=== PATIENT | male | born 1950 | race African-American/Black ===

== ENCOUNTER 2016-09-28 08:56 | Emergency (ER) | payer MEDICARE, MEDICAID ==
[2016-09-28] MEDS ORDERED: DOXYCYCLINE 100 MG TABLET PO STA (09:26)
[2016-09-28] MEDS ORDERED: BUFFERED LIDOCAINE 10 ML SYRINGE SUBQ STA (09:26)
[2016-09-28] MEDS ORDERED: DOXYCYCLINE 100 MG TABLET PO ONE (09:33)
[2016-09-28] MEDS ORDERED: BUFFERED LIDOCAINE 10 ML SYRINGE ONE (09:34)
--- NOTE | 2016-09-28 10:17 | XRAY Preliminary Report ---
Exam: XR Foot 3 View RT IMPRESSION: 1. Radiopaque foreign body measuring 10 mm projected over the base of the right third proximal phalan x on the frontal view and may be within the plantar soft tissues although is not well-seen on the lat eral view. [facility] SITE ID: [id number]
--- NOTE | 2016-09-28 10:20 | XRAY Report ---
EXAM: RIGHT FOOT RADIOGRAPHY EXAM DATE: 09/28/2016 09:59 AM. CLINICAL HISTORY: SORE ON PLANTAR AREA/RO FB. COMPARISON: 10/22/2014. 12/29/2013. TECHNIQUE: 3 views. FINDINGS: Bones: No acute fracture or bony lesions. No bony erosions. Absent right second digit. Joints: Mild right first MTP and marked first and second tarsometatarsal joint degenerative changes. No dislocation. Soft Tissues: 10 mm radiopaque foreign body is seen on the frontal and oblique view overlapping porti ons of the base of the right third proximal phalanx and on the oblique view along the base of the rig ht fourth proximal phalanx. The foreign body may be within the plantar soft tissues although is not w ell-seen on the lateral view. Soft tissue swelling. No subcutaneous air/gas. IMPRESSION: 1. Radiopaque foreign body measuring 10 mm projected over the base of the right third proximal phalan x on the frontal view and may be within the plantar soft tissues although is not well-seen on the lat eral view. [facility] Referring Provider Line: [phone] SITE ID: [id number]
--- NOTE | 2016-09-28 10:45 | ED Physician Documentation ---
History of Present Illness - Stated complaint Stated Complaint: R FOOT LAC NOT HEALING-SWOLLEN - Chief complaint Chief Complaint: Ext Problem - History obtained from History obtained from: Patient - History of Present Illness Timing: How many weeks ago (1 week) - Additonal information Additional information: Patient is a 66-year-old male who presents with a complaint of right-sided foot pain. This pain is been present for about a week. He sustained a laceration but not a crush or twist injury to the foot a week ago. Since that time to the present he has had a small laceration of bottom of his foot that his remained swollen and tender. Denies any purulent discharge redness, warmth or fever. His tetanus prophylaxis is up-to-date. He denies any serious medical problems like hypertension or diabetes. He denies any systemic complaints such as fever , chills, chest pain, shortness of breath, nausea, vomiting, constipation diarrhea or lower urinary symptoms. Review of systems: For pertinent positive and negatives in the review of systems please see the history of present illness, otherwise all other systems have been reviewed and are negative. Dragon disclaimer: Parts of this medical record were created using voice recognition technology. Because of the inherent limitations of this system, occasional same sounding word substitutions do occur and persist despite proofreading. Please read the document for context. Review of Systems Musculoskeletal: reports: Extremity pain, Joint pain, Extremity swelling, Joint swelling, Pain with weight bearing PD PAST MEDICAL HISTORY - Past Medical History Cardiovascular: Hypertension Respiratory: None Neuro: TIA, Peripheral neuropathy, Other Endocrine/Autoimmune: None GI: GERD : None HEENT: None Psych: Depression, Anxiety Musculoskeletal: Osteoarthritis Derm: None - Past Surgical History Past Surgical History: Yes General: Colonoscopy Ortho: Other HEENT: Tonsil/Adenoidectomy - Present Medications Home Medications: Ambulatory Orders Medication Instructions Recorded Confirmed Amitriptyline [Elavil] 10 mg PO HS 10/22/14 09/28/16 Doxycycline Hyclate [Vibramycin] 100 mg PO BID #14 capsule 09/28/16 Tramadol HCl 50 mg PO Q8HR PRN #14 tablet 09/28/16 - Allergies Allergies/Adverse Reactions: Allergies Allergy/AdvReac Type Severity Reaction Status Date / Time No Known Drug Allergies Allergy Verified 10/22/14 13:55 - Social History Does the pt smoke?: No Smoking Status: Former smoker Does the pt drink ETOH?: Yes Does the pt have substance abuse?: No - Immunizations Immunizations are current?: Yes Immunizations: TDAP >10years/unknown - POLST Patient has POLST: No PD ED PE NORMAL - General General: Alert and oriented X 3, No acute distress, Well developed/nourished, Other (Well-appearing thin tall male in no apparent distress) - HEENT HEENT: Atraumatic - Neck Neck: Supple, no meningeal sign - Cardiac Cardiac: RRR - Respiratory Respiratory: No respiratory distress, Clear bilaterally - Abdomen Abdomen: Normal bowel sounds - Extremities Extremities: Other (On examination he has an old deformity to the affected left foot from a fracture when he was a young man. On examination of the plantar aspect he has a L-shaped laceration approximately 1/2 cm in length. The tissue is somewhat wet and macerated. There is mild inflammation but no obvious erythema induration or purulent discharge. There is slight discoloration of the plantar pad around the laceration however the toes show normal color without any evidence of venous or arterial insufficiency) Results - Vitals Vitals: Vital Signs - 24 hr 09/28/16 09/28/16 09:01 13:00 Temperature 36.5 C 36.6 C Heart Rate 92 68 Respiratory 16 14 Rate Blood Pressure 141/81 H 143/93 H O2 Saturation 98 100 Oxygen O2 Source Room air - Labs Labs: Laboratory Tests 09/28/16 13:17 POC Whole Bld Glucose 86 PD MEDICAL DECISION MAKING - ED course Complexity details: reviewed old records, re-evaluated patient ED course: Patient is a 66-year-old man who presents with a poorly healing wound on the plantar aspect of his right foot. There is no clear-cut infection on clinical exam so plain films were obtained to show possible radiopaque foreign body. The wound was cleansed, probed and anesthetized by me is unable to delineate the location of this foreign body so a CT scan of the patient's foot was obtained. The CT scan clearly shows a large radiopaque foreign body and with this information I extended the healing laceration distally and laterally. After this was done a work through the tissue planes is able to find a large triangular glass foreign body. This glass foreign body was removed intact and the wound was carefully again probed and irrigated with 250 cc of saline under pressure did dislodge any small additional glass foreign bodies. At this point in time I am pretty clear that there are no residual foreign bodies and the CT scan only showed one large one which was easily removed. At this point in time the patient will keep the foot clean, soak it daily, will be prescribed antibiotics consisting of doxycycline and a small amount of pain medication. Disposition: To home Clinical impression: 1. Retained foreign body plantar aspect right foot status post removal-foreign body is glass Departure - Departure Disposition: ED Transfer to [facility] Clinical Impression: Foreign body (FB) in soft tissue Instructions: ED Foreign Body Soft Tissue Removed Prescriptions: Tramadol HCl 50 mg PO Q8HR PRN #14 tablet PRN Reason: Pain Doxycycline Hyclate [Vibramycin] 100 mg PO BID #14 capsule
[2016-09-28] MEDS ORDERED: HYDROcod/ACETAM 5/325 MG TABLET PO STA (14:13)
[2016-09-28] MEDS ORDERED: HYDROcod/ACETAM 5/325 MG TABLET ONE (14:21)
[2016-09-28] MEDS ORDERED: LIDOCAINE 2% 10 ML MDV ONE (14:42)
--- NOTE | 2016-09-28 14:43 | CT Preliminary Report ---
Exam: CT Lower Extremity Right W/O IMPRESSION: 1. Focal foreign body is radiodense located in the plantar aspect foot in the region of the third and fourth MTP joints measuring 6.5 x 5.6 mm transversely extending for a cephalocaudal distance of 9.3 mm, located 3.5 mm from skin surface on series 10 image 52 and 4.9 mm in skin surface on series 11 im age 42. 2. Second toe has been removed, third, fourth, fifth hammertoe deformity. No acute fractures. 3. Extensive degenerative change/neuropathic foot seen in the Lisfranc joint. Most likely there has b een an injury to the Lisfranc ligament, an evulsion injury is seen at the distal lateral first cuneif orm. [facility] SITE ID: [id number]
--- NOTE | 2016-09-28 14:59 | CT Report ---
EXAM: RIGHT FOOT CT WITHOUT CONTRAST EXAM DATE: 09/28/2016 02:03 PM. CLINICAL HISTORY: Still concerned for retained foreign body and osteo. COMPARISON: Plain x-ray done earlier today. TECHNIQUE: Thin-section axial images were acquired of the foot without contrast. Post-processing: Cor onal and sagittal reformats. Other: None. In accordance with CT protocol optimization, one or more of the following dose reduction techniques w ere utilized for this exam: automated exposure control, adjustment of mA and/or KV based on patient s ize, or use of iterative reconstructive technique. FINDINGS: Bones: Second toe has been removed. Third, fourth and fifth hammertoe deformity. No acute fractures. Joints: Extensive arthritic/neuropathic changes at the Lisfranc joint. Some fragmentation lateral dis emiliano first cuneiform at the expected location of the Lisfranc ligament. Hindfoot valgus. Loose body seen dorsal to the second TMT joint on series 11 image 84. Numerous loose bodies seen in the lateral mortise. Please see series 10 image 229. There is anterior widening of the mortise on series 11 image 74. Musculature: Moderately extensive fatty atrophy of the muscles of the midfoot. Other: There is an abnormal radiodense structure in the plantar aspect of the foot near the third and fourth MCP joints, associated with a small amount of soft tissue gas and soft tissue defect. Please see series 10 image 52, series 11 image 54, series 9 image 36. IMPRESSION: 1. Focal foreign body is radiodense and located in the plantar aspect of the foot in the region of th e third and fourth MTP joints measuring 6.5 x 5.6 mm transversely, extending for a cephalocaudal dist ance of 9.3 mm, located 3.5 mm from the skin surface on series 10 image 52 and 4.9 mm from the skin s urface on series 11 image 44. 2. Second toe has been removed. Third, fourth, and fifth hammertoe deformity. No acute fractures. 3. Extensive degenerative change/neuropathic foot seen in the Lisfranc joint. Most likely there has b een an injury to the Lisfranc ligament, an avulsion injury is seen at the distal lateral first cuneif orm. [facility] Referring Provider Line: [phone] SITE ID: [id number]
[2016-09-28 15:07] VITALS: BP 130/88
== END 2016-09-28 15:07 | disposition home or self-care (01) ==
LOC: ED 08:56
DX: M79.5 Residual foreign body in soft tissue (principal); Z87.891 Personal history of nicotine dependence; I10 Essential (primary) hypertension; K21.9 Gastro-esophageal reflux disease without esophagitis
CPT/HCPCS: 10120; 73630; 73700; 99283; A9270

== ENCOUNTER 2016-11-15 17:37 | Emergency (ER) | payer MEDICARE, MEDICAID ==
[2016-11-15 17:51] VITALS: BP 137/75
--- NOTE | 2016-11-15 18:53 | ED Physician Documentation ---
History of Present Illness - Stated complaint Stated Complaint: WOUND RT FOOT - Chief complaint Chief Complaint: Ext Problem - History obtained from History obtained from: Patient - History of Present Illness Timing: How many weeks ago (6) Pain level max: 0 Pain level now: 0 Improved by: nothing Worsened by: nothing - Additonal information Additional information: Patient is a 66-year-old diabetic male with severe neuropathy in his feet, who has a nonhealing wound to the plantar aspect of the right foot. A piece of glass was removed approximately a month and a half ago and states the wound has not healed. Has not followed up with his doctor. Denies any fevers. Denies any drainage. Review of Systems Constitutional: denies: Fever, Chills GI: denies: Vomiting Skin: denies: Rash Musculoskeletal: denies: Neck pain, Back pain Neurologic: denies: Headache PD PAST MEDICAL HISTORY - Past Medical History Past Medical History: Yes Cardiovascular: Hypertension Respiratory: None Neuro: TIA, Peripheral neuropathy, Other Endocrine/Autoimmune: None GI: GERD : None HEENT: None Psych: Depression, Anxiety Musculoskeletal: Osteoarthritis Derm: None - Past Surgical History Past Surgical History: Yes General: Colonoscopy Ortho: Other HEENT: Tonsil/Adenoidectomy - Present Medications Home Medications: Ambulatory Orders Medication Instructions Recorded Confirmed Amitriptyline [Elavil] 10 mg PO HS 10/22/14 09/28/16 Doxycycline Hyclate [Vibramycin] 100 mg PO BID #14 capsule 09/28/16 Tramadol HCl 50 mg PO Q8HR PRN #14 tablet 09/28/16 Cephalexin [Keflex] 500 mg PO Q6H #28 capsule 11/15/16 Sulfamethox/Trimeth 800/160 1 each PO BID #14 tablet 11/15/16 [Bactrim Ds 800/160] - Allergies Allergies/Adverse Reactions: Allergies Allergy/AdvReac Type Severity Reaction Status Date / Time No Known Drug Allergies Allergy Verified 11/15/16 17:50 - Social History Does the pt smoke?: No Smoking Status: Former smoker Does the pt drink ETOH?: Yes Does the pt have substance abuse?: No - Immunizations Immunizations are current?: Yes Immunizations: TDAP >10years/unknown - POLST Patient has POLST: No PD ED PE NORMAL - Vitals Vital signs reviewed: Yes - General General: Alert and oriented X 3, No acute distress - Derm Derm: Warm and dry - Extremities Extremities: Other (R foot - puncture wound present with mild swelling and erythema surrounding. No drainage. ) - Neuro Neuro: Alert and oriented X 3 - Psych Psych: Normal mood, Normal affect Results - Vitals Vitals: Oxygen O2 Source Room air - Labs Labs: Microbiology 11/15/16 19:00 Wound Culture - Preliminary Foot - Right Strep Agalactiae - (Group B) Laboratory Tests 11/15/16 11/15/16 11/15/16 18:50 18:50 18:50 WBC 7.5 RBC 4.43 L Hgb 12.1 L Hct 37.6 L MCV 84.9 MCH 27.3 MCHC 32.2 RDW 14.4 Plt Count 289 MPV 6.9 L Neut # 4.9 Lymph # 1.9 Stewart # 0.5 Eos # 0.1 Baso # 0.1 Absolute Nucleated RBC 0.00 Nucleated RBCs 0.0 ESR 45 H C-Reactive Protein 1.3 H - Rads (name of study) R foot xray Radiology: Prelim report reviewed, EMP read contemporaneously, See rad report ( No acute bony abnormalities identified. ) PD MEDICAL DECISION MAKING - ED course Complexity details: reviewed results, re-evaluated patient, considered differential, d/w patient ED course: Patient is a 66-year-old male who presents to the emergency department with a nonhealing wound to the plantar aspect of the right foot. Wound culture obtained. Inflammatory markers are mildly elevated. Will cover with antibiotics pending culture results. Recommend he be referred to wound care by his PCP at the [facility]. He has had wound care there before. No evidence of osteomyelitis. Patient counseled regarding signs and symptoms for which I believe and urgent re-evaluation would be necessary. Patient with good understanding of and agreement to plan and is comfortable going home at this time This document was made in part using voice recognition software. While efforts are made to proofread this document, sound alike and grammatical errors may occur. Departure - Departure Disposition: 01 Home, Self Care Clinical Impression: Non-healing wound Diabetic foot ulcer Qualifiers: Diabetic foot ulcer location: midfoot Diabetes mellitus type: other specified ( including PEPPER) Laterality: right Non-pressure ulcer stage: limited to breakdown of skin Qualified Code(s): E13.621 - Other specified diabetes mellitus with foot ulcer Condition: Good Instructions: ED Wound Care Follow-Up: Latanya Skinner ARNP [Primary Care Provider] - Within 3 Days (for referral to wound care.) Prescriptions: Sulfamethox/Trimeth 800/160 [Bactrim Ds 800/160] 1 each PO BID #14 tablet Cephalexin [Keflex] 500 mg PO Q6H #28 capsule Comments: Return if you worsen. You need a referral to wound care from your doctor for your foot. take all antibiotics until gone. Discharge Date/Time: 11/15/16 20:18
[2016-11-15 18:57] LABS: BASOPHILS # (AUTO) 0.1 10^3/uL (0.0-0.1); BASOPHILS % (AUTO) 1.2 %; EOSINOPHILS # (AUTO) 0.1 10^3/uL (0.0-0.7); EOSINOPHILS % (AUTO) 1.5 %; HCT - HEMATOCRIT 37.6 % (42.0-52.0); HGB - HEMOGLOBIN 12.1 g/dL (14.0-18.0); LYMPHOCYTES # (AUTO) 1.9 10^3/uL (1.5-3.5); LYMPHOCYTES % (AUTO) 24.7 %; MEAN CORPUSCULAR HEMOGLOBIN 27.3 pg (27.0-31.0); MEAN CORPUSCULAR HGB CONC 32.2 g/dL (32.0-36.0); MEAN CORPUSCULAR VOLUME 84.9 fL (80.0-94.0); MEAN PLATELET VOLUME 6.9 fL (7.4-11.4); MONOCYTES # (AUTO) 0.5 10^3/uL (0.0-1.0); MONOCYTES % (AUTO) 7.1 %; NEUTROPHILS # (AUTO) 4.9 10^3/uL (1.5-6.6); NEUTROPHILS % (AUTO) 65.5 %; RED BLOOD COUNT 4.43 10^6/uL (4.70-6.10); RED CELL DISTRIBUTION WIDTH 14.4 % (12.0-15.0); UNCORRECTED WHITE BLOOD COUNT 7.5 x10^3/uL; WHITE BLOOD COUNT 7.5 x10^3/uL (4.8-10.8)
--- NOTE | 2016-11-15 19:53 | XRAY Preliminary Report ---
Exam: XR Foot 3 View RT IMPRESSION: No acute bony abnormalities identified. [facility] SITE ID: [id number]
--- NOTE | 2016-11-15 19:55 | XRAY Report ---
EXAM: RIGHT FOOT RADIOGRAPHY EXAM DATE: 11/15/2016 07:35 PM. CLINICAL HISTORY: Right foot wound not healing. Diabetic. Plantar aspect. COMPARISON: 09/28/2016. TECHNIQUE: 3 views. FINDINGS: Bones: No acute traumatic or destructive bony abnormalities. Missing second toe. Joints: Stable degenerative changes at multiple TMT joints, especially the first, and the first IP codi int.. No subluxations. Soft Tissues: Soft tissue swelling noted over the plantar MTP joints. IMPRESSION: No acute bony abnormalities identified. [facility] Referring Provider Line: [phone] SITE ID: [id number]
== END 2016-11-15 20:18 | disposition home or self-care (01) ==
LOC: ED 17:37
DX: S91.331D Puncture wound without foreign body, right foot, subsequent encounter (principal); W25.XXXD Contact with sharp glass, subsequent encounter; E11.621 Type 2 diabetes mellitus with foot ulcer; L97.411 Non-pressure chronic ulcer of right heel and midfoot limited to breakdown of skin; E11.42 Type 2 diabetes mellitus with diabetic polyneuropathy; I10 Essential (primary) hypertension; K21.9 Gastro-esophageal reflux disease without esophagitis; M19.90 Unspecified osteoarthritis, unspecified site; Z86.73 Personal history of transient ischemic attack (TIA), and cerebral infarction without residual deficits; Z87.891 Personal history of nicotine dependence
CPT/HCPCS: 36415; 85025; 85651; 86140; 87070; 87205; 99283

== ENCOUNTER 2016-11-19 14:02 | Outpatient (CLI) | payer MEDICARE, MEDICAID ==
[2016-11-19 18:59] LABS: ALBUMIN/GLOBULIN RATIO 1.2 (1.0-2.2); BILIRUBIN,TOTAL 0.7 mg/dL (0.2-1.0); CALCIUM 9.3 mg/dL (8.5-10.3); CREATININE 1.3 mg/dL (0.6-1.2); POTASSIUM 4.5 mmol/L (3.5-5.0); TOTAL PROTEIN 8.1 g/dL (6.7-8.2)
== END 2016-11-19 14:03 | disposition home or self-care (01) ==
LOC: LAB.S 14:02
PROVIDERS: ATTEND Nurse Practitioner Family
DX: B19.20 Unspecified viral hepatitis C without hepatic coma (principal); I10 Essential (primary) hypertension; R79.89 Other specified abnormal findings of blood chemistry
CPT/HCPCS: 36415; 80053; 87522

== ENCOUNTER 2017-12-04 15:50 | Emergency (ER) | payer MEDICARE, MEDICAID ==
[2017-12-04] MEDS ORDERED: SULFAMETH/TRIMETH DS 800/160 MG TABLET PO STA (17:27)
--- NOTE | 2017-12-04 17:30 | ED Physician Documentation ---
History of Present Illness - Stated complaint Stated Complaint: RT FOOT WOUND - Chief complaint Chief Complaint: General - History obtained from History obtained from: Patient - History of Present Illness Timing: Other (67-year-old gentleman with a chronic foot wound on the right foot. Has been infected many times. He feels like it started to get infected again a couple of days ago and he is fatigued without measured fevers.) Review of Systems Constitutional: denies: Fever, Chills Nose: denies: Rhinorrhea / runny nose, Congestion GI: denies: Abdominal Pain, Abdominal Swelling PD PAST MEDICAL HISTORY - Past Medical History Past Medical History: Yes Cardiovascular: Hypertension Respiratory: None Endocrine/Autoimmune: None GI: GERD : None HEENT: None Psych: Depression, Anxiety Musculoskeletal: Osteoarthritis Derm: None - Past Surgical History Past Surgical History: Yes General: Colonoscopy Ortho: Other HEENT: Tonsil/Adenoidectomy - Present Medications Home Medications: Ambulatory Orders Medication Instructions Recorded Confirmed Sulfamethoxazole/Trimethoprim 1 each PO BID #20 tablet 12/04/17 [Sulfamethoxazole-Tmp Ds Tablet] - Allergies Allergies/Adverse Reactions: Allergies Allergy/AdvReac Type Severity Reaction Status Date / Time No Known Drug Allergies Allergy Verified 12/04/17 16:11 - Social History Does the pt smoke?: No Smoking Status: Never smoker Does the pt drink ETOH?: Yes Does the pt have substance abuse?: No - Immunizations Immunizations are current?: Yes Immunizations: TDAP >10years/unknown - POLST Patient has POLST: No PD ED PE NORMAL - Vitals Vital signs reviewed: Yes - General General: Alert and oriented X 3, No acute distress - Extremities Extremities: Other (On the bottom of the right foot there is a chronic small ulcer measuring only about 5 mm around with a little bit of drainage. A culture was done during exam.) - Psych Psych: Normal mood, Normal affect Results - Vitals Vitals: Vital Signs - 24 hr 12/04/17 16:08 Temperature 36.5 C Heart Rate 99 Respiratory 20 Rate Blood Pressure 118/54 L O2 Saturation 100 Oxygen O2 Source Room air PD MEDICAL DECISION MAKING - Sepsis Event Vital Signs: Vital Signs - 24 hr 12/04/17 16:08 Temperature 36.5 C Heart Rate 99 Respiratory 20 Rate Blood Pressure 118/54 L O2 Saturation 100 Oxygen O2 Source Room air Departure - Departure Disposition: 01 Home, Self Care Clinical Impression: Foot infection Condition: Good Record reviewed to determine appropriate education?: Yes Instructions: Pressure Ulcer Foot Follow-Up: Latanya Skinner ARNP [Primary Care Provider] - Prescriptions: Sulfamethoxazole/Trimethoprim [Sulfamethoxazole-Tmp Ds Tablet] 1 each PO BID #20 tablet Comments: We are performing a wound culture, the results should be done in 48-72 hours. If antibiotic change is necessary we will call you. Return if worse in the meantime, especially if you develop increased pain, fevers, cannot keep down the medication. Otherwise follow-up with your physician in approximately 2-3 days. Call your doctor to arrange a follow-up appointment, make the next available appointment. In the interim, return anytime if worse or if new symptoms develop.
[2017-12-04 17:46] VITALS: BP 138/71
== END 2017-12-04 17:45 | disposition home or self-care (01) ==
LOC: ED 15:50
DX: L97.519 Non-pressure chronic ulcer of other part of right foot with unspecified severity (principal); L08.9 Local infection of the skin and subcutaneous tissue, unspecified; I10 Essential (primary) hypertension
CPT/HCPCS: 87070; 87205; 99283; A9270; 87181

== ENCOUNTER 2017-12-19 10:23 | Emergency (ER) | payer MEDICARE, MEDICAID ==
--- NOTE | 2017-12-19 10:49 | ED Physician Documentation ---
History of Present Illness - Stated complaint Stated Complaint: RIGHT FOOT PX - Chief complaint Chief Complaint: General - History obtained from History obtained from: Patient - History of Present Illness Timing: How many weeks ago (several) Pain level max: 0 Pain level now: 0 - Additonal information Additional information: Patient is a 67-year-old male with a wound to the right foot that is ongoing for the past several weeks. Recently finished antibiotics. He has been seen at the [facility] for wound care and was sent here for evaluation today. He denies any changes in his symptoms. No fevers. No chills. Does have neuropathy in that foot, is not having pain. Has not seen his primary care provider for this yet. Review of Systems Constitutional: denies: Fever, Chills Respiratory: denies: Cough GI: denies: Nausea, Vomiting, Diarrhea Skin: denies: Rash Musculoskeletal: denies: Neck pain, Back pain Neurologic: denies: Headache PD PAST MEDICAL HISTORY - Past Medical History Past Medical History: Yes Cardiovascular: Hypertension Respiratory: None Endocrine/Autoimmune: None GI: GERD : None HEENT: None Psych: Depression, Anxiety Musculoskeletal: Osteoarthritis Derm: None - Past Surgical History Past Surgical History: Yes General: Colonoscopy Ortho: Other HEENT: Tonsil/Adenoidectomy - Present Medications Home Medications: Ambulatory Orders Medication Instructions Recorded Confirmed Sulfamethoxazole/Trimethoprim 1 each PO BID #20 tablet 12/04/17 12/12/17 [Sulfamethoxazole-Tmp Ds Tablet] Amitriptyline HCl 2 tab PO DAILY PM 12/12/17 12/12/17 - Allergies Allergies/Adverse Reactions: Allergies Allergy/AdvReac Type Severity Reaction Status Date / Time No Known Drug Allergies Allergy Verified 12/12/17 13:02 - Social History Does the pt smoke?: No Smoking Status: Never smoker Does the pt drink ETOH?: No Does the pt have substance abuse?: No - Immunizations Immunizations are current?: Yes Immunizations: TDAP >10years/unknown - POLST Patient has POLST: No PD ED PE NORMAL - Vitals Vital signs reviewed: Yes - General General: Alert and oriented X 3, No acute distress - HEENT HEENT: Moist mucous membranes - Neck Neck: Supple, no meningeal sign - Derm Derm: Warm and dry - Extremities Extremities: Other (R foot - Maceration between the fourth and fifth toes on the right foot, small amount of serosanguineous drainage. Also has a wound to the plantar aspect of the right foot, between the second and third digits. This is packed. Mild cellulitis.) - Neuro Neuro: Alert and oriented X 3 Results - Vitals Vitals: Vital Signs - 24 hr 12/19/17 12/19/17 10:30 12:36 Temperature 36.5 C 35.9 C L Heart Rate 88 59 L Respiratory 18 18 Rate Blood Pressure 173/106 H 132/77 H O2 Saturation 98 100 Oxygen O2 Source Room air - Labs Labs: Laboratory Tests 12/19/17 12/19/17 12/19/17 11:15 11:15 11:15 WBC 4.2 L RBC 4.03 L Hgb 11.4 L Hct 34.1 L MCV 84.7 MCH 28.3 MCHC 33.4 RDW 13.8 Plt Count 589 H MPV 6.2 L Neut # (Auto) 2.4 Lymph # (Auto) 1.3 L [place] # (Auto) 0.3 Eos # (Auto) 0.1 Baso # (Auto) 0.1 Absolute Nucleated RBC 0.00 Nucleated RBC % 0.1 ESR 75 H Sodium 133 L Potassium 4.7 Chloride 100 L Carbon Dioxide 24 Anion Gap 9.0 BUN 19 Creatinine 1.3 H Estimated GFR (MDRD) 66 L Glucose 99 Calcium 9.1 C-Reactive Protein 12/19/17 11:15 WBC RBC Hgb Hct MCV MCH MCHC RDW Plt Count MPV Neut # (Auto) Lymph # (Auto) [place] # (Auto) Eos # (Auto) Baso # (Auto) Absolute Nucleated RBC Nucleated RBC % ESR Sodium Potassium Chloride Carbon Dioxide Anion Gap BUN Creatinine Estimated GFR (MDRD) Glucose Calcium C-Reactive Protein 2.1 H - Rads (name of study) R foot xray Radiology: Prelim report reviewed, EMP read contemporaneously, See rad report (No definite acute abnormality of the foot. 2. Stable degenerative disease. 3. Status post second toe amputation. ) PD MEDICAL DECISION MAKING - ED course Complexity details: reviewed results, re-evaluated patient, considered differential, d/w patient ED course: Patient with a continued cellulitis of the right lower he is undergoing wound care. We will continue this. Also place him back on Bactrim. He is well- appearing, nontoxic. Afebrile. No evidence of osteomyelitis. We will have him follow-up with his doctor for further care. No evidence of sepsis. Patient counseled regarding signs and symptoms for which I believe and urgent re- evaluation would be necessary. Patient with good understanding of and agreement to plan and is comfortable going home at this time This document was made in part using voice recognition software. While efforts are made to proofread this document, sound alike and grammatical errors may occur. Departure - Departure Disposition: 01 Home, Self Care Clinical Impression: Non-healing wound Condition: Stable Instructions: ED Wound Care Follow-Up: Latanya Skinner ARNP [Primary Care Provider] - Within 3 Days Comments: Take all antibiotics until gone. Follow-up with your doctor for further care. Your workup today does not reveal any infection into your bones. Discharge Date/Time: 12/19/17 12:41
[2017-12-19 11:22] LABS: BASOPHILS # (AUTO) 0.1 10^3/uL (0.0-0.1); BASOPHILS % (AUTO) 3.2 %; EOSINOPHILS # (AUTO) 0.1 10^3/uL (0.0-0.7); EOSINOPHILS % (AUTO) 1.9 %; HGB - HEMOGLOBIN 11.4 g/dL (14.0-18.0); LYMPHOCYTES # (AUTO) 1.3 10^3/uL (1.5-3.5); LYMPHOCYTES % (AUTO) 30.5 %; MEAN CORPUSCULAR HEMOGLOBIN 28.3 pg (27.0-31.0); MEAN CORPUSCULAR HGB CONC 33.4 g/dL (32.0-36.0); MEAN CORPUSCULAR VOLUME 84.7 fL (80.0-94.0); MEAN PLATELET VOLUME 6.2 fL (7.4-11.4); MONOCYTES # (AUTO) 0.3 10^3/uL (0.0-1.0); MONOCYTES % (AUTO) 6.9 %; NEUTROPHILS # (AUTO) 2.4 10^3/uL (1.5-6.6); NEUTROPHILS % (AUTO) 57.5 %; PLT - PLATELET COUNT 589 10^3/uL (130-450); RED BLOOD COUNT 4.03 10^6/uL (4.70-6.10); RED CELL DISTRIBUTION WIDTH 13.8 % (12.0-15.0); WHITE BLOOD COUNT 4.2 x10^3/uL (4.8-10.8)
[2017-12-19 11:35] LABS: CALCIUM 9.1 mg/dL (8.5-10.3); CREATININE 1.3 mg/dL (0.6-1.2)
--- NOTE | 2017-12-19 11:43 | XRAY Report ---
Reason: R foot wound, not healing for weeks Procedure Date: 12/19/2017 Accession Number: [id number] / [id number] Procedure: XR - Foot 3 View RT CPT Code: FULL RESULT: EXAM: RIGHT FOOT RADIOGRAPHY EXAM DATE: 12/19/2017 11:27 AM. CLINICAL HISTORY: R foot wound, not healing for weeks. COMPARISON: 11/15/2016. TECHNIQUE: 3 views. FINDINGS: Bones: Stable changes of amputation of the second toe at the level of the MTP joint. No fracture, bony destructive change, acute periostitis or other acute abnormality demonstrated. Joints: Degenerative disease at MTP joints is without significant change. Hammertoe configurations redemonstrated. Soft Tissues: No definite abnormality. Achilles calcaneal spurring redemonstrated. IMPRESSION: 1. No definite acute abnormality of the foot. 2. Stable degenerative disease. 3. Status post second toe amputation. RADIA
[2017-12-19 12:36] VITALS: BP 132/77
== END 2017-12-19 12:41 | disposition home or self-care (01) ==
LOC: ED 10:23
DX: L03.115 Cellulitis of right lower limb (principal); S91.301A Unspecified open wound, right foot, initial encounter; X58.XXXA Exposure to other specified factors, initial encounter; Z89.421 Acquired absence of other right toe(s); G62.9 Polyneuropathy, unspecified; I10 Essential (primary) hypertension
CPT/HCPCS: 36415; 80048; 85025; 85651; 86140; 99283

== ENCOUNTER 2018-01-25 14:50 | Outpatient (CLI) | payer MEDICARE, MEDICAID ==
--- NOTE | 2018-01-27 00:55 | XRAY Report ---
Reason: FOOT ULCER RIGHT, NEUROPATHY Procedure Date: 01/25/2018 Accession Number: [id number] / [id number] Procedure: XR - Foot 2 View RT CPT Code: FULL RESULT: EXAM: RIGHT FOOT RADIOGRAPHY EXAM DATE: 01/25/2018 03:34 PM. CLINICAL HISTORY: Foot ulcer, right. Neuropathy. COMPARISON: FOOT 3 VIEW RT 12/19/2017 11:17 AM. TECHNIQUE: 2 views. FINDINGS: Bones: Absent second toe distal to the metatarsal. No traumatic or destructive bone abnormalities. No erosion or periostitis identified. Joints: Chronic degenerative changes of the TMT joints are stable. No subluxation. Soft Tissues: Unremarkable. IMPRESSION: 1. No acute bony abnormality. 2. Stable degenerative changes of the TMT joints. 3. Second toe amputation. RADIA
== END 2018-01-25 14:51 | disposition home or self-care (01) ==
LOC: DI 14:50
PROVIDERS: ATTEND Nurse Practitioner Family
DX: L97.519 Non-pressure chronic ulcer of other part of right foot with unspecified severity (principal); G62.9 Polyneuropathy, unspecified; M19.071 Primary osteoarthritis, right ankle and foot; Z89.421 Acquired absence of other right toe(s)

== ENCOUNTER 2018-03-14 12:14 | Inpatient (IN) | payer MEDICARE, MEDICAID ==
[2018-03-14 13:36] LABS: BASOPHILS # (AUTO) 0.1 10^3/uL (0.0-0.1); EOSINOPHILS % (AUTO) 0.3 %; HGB - HEMOGLOBIN 11.1 g/dL (14.0-18.0); LYMPHOCYTES # (AUTO) 1.2 10^3/uL (1.5-3.5); LYMPHOCYTES % (AUTO) 13.9 %; MEAN CORPUSCULAR HEMOGLOBIN 28.1 pg (27.0-31.0); MEAN PLATELET VOLUME 6.8 fL (7.4-11.4); MONOCYTES # (AUTO) 0.9 10^3/uL (0.0-1.0); MONOCYTES % (AUTO) 10.3 %; NEUTROPHILS # (AUTO) 6.5 10^3/uL (1.5-6.6); NEUTROPHILS % (AUTO) 74.5 %; PLT - PLATELET COUNT 365 10^3/uL (130-450); RED BLOOD COUNT 3.95 10^6/uL (4.70-6.10); RED CELL DISTRIBUTION WIDTH 13.9 % (12.0-15.0); WHITE BLOOD COUNT 8.7 x10^3/uL (4.8-10.8)
[2018-03-14 13:45] LABS: ALBUMIN 3.6 g/dL (3.2-5.5); ALBUMIN/GLOBULIN RATIO 0.8 (1.0-2.2); BILIRUBIN,TOTAL 0.6 mg/dL (0.2-1.0); CALCIUM 8.9 mg/dL (8.5-10.3); CREATININE 1.3 mg/dL (0.6-1.2); TOTAL PROTEIN 8.3 g/dL (6.7-8.2)
--- NOTE | 2018-03-14 14:04 | XRAY Report ---
Reason: pain Procedure Date: 03/14/2018 Accession Number: [id number] / [id number] Procedure: XR - Foot 3 View RT CPT Code: FULL RESULT: EXAM: RIGHT FOOT RADIOGRAPHY EXAM DATE: 03/14/2018 01:27 PM. CLINICAL HISTORY: Pain. COMPARISON: FOOT 2 VIEW RT 01/25/2018 3:28 PM. TECHNIQUE: 3 views. FINDINGS: Bones: Osteopenia. Previous amputation of second digit at the MTP joint. Moderate sized posterior calcaneal spur. No definite acute fracture or other bone lesion. Joints: Prominent degenerative changes at the TMT level similar to previous exam. Soft Tissues: Mild soft tissue swelling. No soft tissue gas or foreign body. IMPRESSION: Chronic findings. Mild soft tissue swelling. RADIA
[2018-03-14] MEDS ORDERED: cefTRIAXone 2 GM in SODIUM CHLORIDE 0.9% MINIBAG 100 ML IV STA (14:27)
[2018-03-14] MEDS ORDERED: VANCOMYCIN INJ 2.5 GM in SODIUM CHLORIDE 0.9% 500 ML IV STA (14:28)
[2018-03-14] MEDS ORDERED: cefTRIAXone 2 GM VIAL ONE (14:52)
--- NOTE | 2018-03-14 14:59 | ED Physician Documentation ---
History of Present Illness - Stated complaint Stated Complaint: R FOOT SWELLING/TOE BLEEDING - Chief complaint Chief Complaint: Ext Problem - History obtained from History obtained from: Patient - Additonal information Additional information: 67-year-old male presents the emergency department with increased redness and swelling of his distal right foot. The patient has a history of intermittent recurrent infections of this foot and has already had one toe amputated in the past. The patient was started on Cipro earlier this week and his symptoms have only worsened and he reports general fatigue and feeling chilled and feverish at times. Symptoms are described as severe. No other associated symptoms. Review of Systems Constitutional: reports: Fever, Chills, Fatigue Eyes: denies: Discharge Ears: denies: Ear pain Nose: denies: Congestion Throat: denies: Sore throat Cardiac: denies: Chest pain / pressure Respiratory: denies: Cough GI: denies: Abdominal Pain : denies: Dysuria Skin: reports: Other (Redness and swelling) Musculoskeletal: reports: Extremity pain Neurologic: reports: Generalized weakness PD PAST MEDICAL HISTORY - Past Medical History Past Medical History: Yes Cardiovascular: Hypertension Respiratory: None Neuro: None Endocrine/Autoimmune: None GI: GERD : None HEENT: None Psych: Depression, Anxiety Musculoskeletal: Osteoarthritis Derm: None - Past Surgical History Past Surgical History: Yes General: Colonoscopy Ortho: Other HEENT: Tonsil/Adenoidectomy - Present Medications Home Medications: Ambulatory Orders Medication Instructions Recorded Confirmed Amitriptyline HCl 100 mg PO QPM 12/12/17 03/14/18 Ciprofloxacin HCl [Cipro] 500 mg PO [id number] 03/14/18 03/14/18 - Allergies Allergies/Adverse Reactions: Allergies Allergy/AdvReac Type Severity Reaction Status Date / Time No Known Drug Allergies Allergy Verified 03/14/18 12:24 - Social History Does the pt smoke?: No Smoking Status: Former smoker Does the pt drink ETOH?: No Does the pt have substance abuse?: No - Immunizations Immunizations are current?: Yes Immunizations: TDAP current <10years - POLST Patient has POLST: No PD ED PE NORMAL - General General: Alert and oriented X 3, No acute distress - HEENT HEENT: Atraumatic, PERRL, EOMI, Ears normal - Cardiac Cardiac: RRR, Strong equal pulses - Respiratory Respiratory: No respiratory distress, Clear bilaterally - Abdomen Abdomen: Soft, Non tender - Derm Derm: Other (The distal right foot is swollen and erythematous, there is no palpable abscess or active drainage at this point. The patient has tenderness to palpation. There is a normal dorsalis pedis pulse and no swelling proximal) - Extremities Extremities: Normal ROM s pain. No: No tenderness to palpate - Neuro Neuro: Alert and oriented X 3, Normal speech - Psych Psych: Normal affect Results - Vitals Vitals: Vital Signs - 24 hr 03/14/18 03/14/18 12:17 14:58 Temperature 36.4 C L 36.7 C Heart Rate 109 H 84 Respiratory 17 16 Rate Blood Pressure 136/75 H 148/91 H O2 Saturation 100 98 Oxygen O2 Source Room air - Labs Labs: Laboratory Tests 03/14/18 03/14/18 03/14/18 13:21 13:21 13:21 WBC 8.7 RBC 3.95 L Hgb 11.1 L Hct 33.6 L MCV 85.0 MCH 28.1 MCHC 33.0 RDW 13.9 Plt Count 365 MPV 6.8 L Neut # (Auto) 6.5 Lymph # (Auto) 1.2 L [place] # (Auto) 0.9 Eos # (Auto) 0.0 Baso # (Auto) 0.1 Absolute Nucleated RBC 0.00 Nucleated RBC % 0.0 ESR Sodium 132 L Potassium 4.0 Chloride 97 L Carbon Dioxide 24 Anion Gap 11.0 BUN 18 Creatinine 1.3 H Estimated GFR (MDRD) 66 L Glucose 99 Lactic Acid 1.4 Calcium 8.9 Total Bilirubin 0.6 AST 21 ALT 22 Alkaline Phosphatase 92 Total Creatine Kinase 68 C-Reactive Protein Total Protein 8.3 H Albumin 3.6 Globulin 4.7 H Albumin/Globulin Ratio 0.8 L Lipase 26 03/14/18 03/14/18 13:21 13:21 WBC RBC Hgb Hct MCV MCH MCHC RDW Plt Count MPV Neut # (Auto) Lymph # (Auto) [place] # (Auto) Eos # (Auto) Baso # (Auto) Absolute Nucleated RBC Nucleated RBC % ESR 92 H Sodium Potassium Chloride Carbon Dioxide Anion Gap BUN Creatinine Estimated GFR (MDRD) Glucose Lactic Acid Calcium Total Bilirubin AST ALT Alkaline Phosphatase Total Creatine Kinase C-Reactive Protein 16.1 H Total Protein Albumin Globulin Albumin/Globulin Ratio Lipase - Rads (name of study) Foot Radiology: Final report received, See rad report (IMPRESSION: Chronic findings. Mild soft tissue swelling. ) PD MEDICAL DECISION MAKING - ED course ED course: The patient is failed outpatient management with oral antibiotics and will require admission to the hospital for IV antibiotic therapy. Clinically there is no evidence of sepsis or necrotizing fasciitis. The findings and plan were discussed with the patient who understands and agrees to the plan. The case was discussed with the hospitalist Dr. Bryan who accepts the patient onto her service. Departure - Departure Disposition: [facility] DC/Xfer Clinical Impression: Foot infection, Failure of outpatient treatment Condition: Fair
[2018-03-14] MEDS ORDERED: MORPHINE 2 MG/ML CARPUJECT IVP STA (15:05)
[2018-03-14] MEDS ORDERED: ONDANSETRON 4 MG/2 ML VIAL IVP PRN (15:10)
[2018-03-14] MEDS ORDERED: HYDROmorphone 1 MG/ML CARPUJECT IVP PRN (15:10)
[2018-03-14] MEDS ORDERED: ACETAMINOPHEN 325 MG TABLET PO PRN (15:10)
--- NOTE | 2018-03-14 15:19 | HISTORY & PHYSICAL EXAMINATION ---
Chief Complaint - Chief Complaint Chief Complaint: weakness, RLE infection History of Present Illness - Admitted From Admitted From:: ED - History Obtained From Records Reviewed: yes History obtained from: chart review, patient Exam Limitations: none - History of Present Illness HPI Comment/Other: Yves Langley is a 67-year old male with a past medical history of hypertension, hyperlipidemia, alcoholism, right charcot foot, right foot fracture, GERD, BPH, tobacco abuse, insomnia, anxiety, and recent falls. The patient recalls getting a piece of glass in his foot about 2 years ago that at first was not noticable, and was removed about 1 year ago after a wound had developed on the posterior ball of his foot near his largest toe. In addition, he had a wound develop in between his 4th and 5th toes. He has seen the [facility], gotten second opinions, but continued to have pain swelling, and was usi ng the heel of his right foot to ambulate. He was just put on oral antibiotics on 03/11/18 and his wound did not improve. Since Saturday, he has been unbalanced while walking, and had started becoming much more weak. Last evening he began to have body aches, fevers, chills, nausea, visual disturbances, and noticed that his right foot had lots of bleeding. As he tried to get up to the bathroom to clean up his foot, he was not able to as he was profoundly weak. When this continued as he awoke today, he decided to come to the ED. Once in the ED a orthopedic surgery consult was made, who will plan for surgical intervention, likely in the AM. History - Past Medical History Cardiovascular: reports: Hypertension, High cholesterol Respiratory: reports: None Neuro: reports: Peripheral neuropathy Endocrine/Autoimmune: reports: None GI: reports: GERD, Hepatitis INCLINOMETER TESTER: reports: None : reports: Benign prostate hypertrophy, Nocturia, Frequency HEENT: reports: Chronic vision loss, Chronic sinusitis Psych: reports: Depression, Anxiety Musculoskeletal: reports: Osteoarthritis, Fatigue Derm: reports: None MRSA Hx?: Yes - Past Surgical History General: reports: Colonoscopy Ortho: reports: Other (right 2nd toe removal) HEENT: reports: Tonsil/Adenoidectomy - Family & Social History Family History: Mother: , Father: Living arrangement: At home Living Situation: Alone Social History Notes: The patient states that he lives alone, 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 He is still aquinted with his ex- and has 2 grown children, a son and a daughter. He admits to long-standing alcoholism, but states that he has been sober for the past 4 years. He admits to using tobacco from age [age], and denies illicit drug use. He wishes to be a FULL code. - Substance History Use: Uses substance without health or social issues: NONE Abuse: Recurrent use of substance despite neg consequences: NONE Dependence: Experiences withdrawal or developed tolerances: NONE - POLST Patient has POLST: No POLST Status: Full Code Meds/Allgy - Home Medications Home Medications: Ambulatory Orders Medication Instructions Recorded Confirmed Amitriptyline HCl 100 mg PO QPM 12/12/17 03/14/18 Ciprofloxacin HCl [Cipro] 500 mg PO [id number] 03/14/18 03/14/18 - Allergies Allergies/Adverse Reactions: Allergies Allergy/AdvReac Type Severity Reaction Status Date / Time No Known Drug Allergies Allergy Verified 03/14/18 12:24 Review of Systems - Constitutional Constitutional: reports: Fatigue, Fever, Chills, Weakness, Night sweats - Eyes Eyes: reports: Vision loss, Corrective lenses - Ears, Nose & Throat Ears, Nose & Throat: reports: Postnasal drainage - Cardiovascular Cariovascular: reports: Edema, Lightheadedness, Decr. exercise tolerance - Gastrointestinal Gastrointestinal: reports: Abdominal distention, Nausea, Reflux/heartburn, Poor appetite - Genitourinary Genitourinary: reports: Dysuria, Frequency, Nocturia - Musculoskeletal Musculoskeletal: reports: Joint swelling - Integumentary Integumentary: reports: Lesions, Dryness, Other (chronic wound to RLE-foot) - Neurological Neurological: reports: General weakness, Focal weakness, Pre-existing deficit, Abnormal gait - Psychiatric Psychiatric: reports: Anxiety - Hematologic/Lymphatic Hematologic/Lymphatic: reports: Recurrent infections - All Other Systems All Other Systems: reports: Reviewed and negative Prior Level of Functionality: Lives independently alone with his dog, "Panda". No walker or cane use. Has complained of ataxia since his right foot infection. Some recent falls without major injury. Exam - Vital Signs Reviewed Vital Signs: Yes Vital Signs: Vital Signs x48h Temp Pulse Resp BP Pulse Ox 03/14/18 14:58 36.7 C 84 16 148/91 H 98 03/14/18 12:17 36.4 C L 109 H 17 136/75 H 100 - Physical Exam General Appearance: positive: No acute distress, Alert Eyes Bilateral: positive: PERRL ENT: positive: Pharynx nml, No signs of dehydration Neck: positive: Nml inspection, Thyroid nml, No JVD, Trachea midline Respiratory: positive: Chest non-tender, No respiratory distress, Breath sounds nml Cardiovascular: positive: Regular rate & rhythm, No gallop Peripheral Pulses: positive: 2+, 1+ Abdomen: positive: Non-tender, Nml bowel sounds, Other (rounded, soft) Back: positive: Nml inspection Skin: positive: No rash, Warm, Dry Extremities: positive: Non-tender, Pedal edema (right greater than left), Joint swelling Neurologic/Psychiatric: positive: Oriented x3, CN's nml (2-12), Motor nml, Sensation nml, Weakness, Depressed mood/affect Reflexes: Bicep (R): 4+, Bicep (L): 4+, Ankle (R): 2+, Ankle (L): 2+ Sepsis Event Note (H) - Evaluation Current Stage of Sepsis: Ruled out Conclusion/Plan - Problem List (1) Preop exam for internal medicine Conclusion/Plan: Using the revised cardiac risk index the patient scores very low at 0.04%, making him at a very low risk as a surgical candidate. He was told of this score in the event that he will undergo surgery. Plan: Continue to monitor. (2) Non-healing ulcer of right foot Conclusion/Plan: After reviewing [facility] wound notes, this patient has had several visits with no resolution of his non-healing wound of his right foot. He has a deep wound to the inner aspect, posterior ball of his foot, and in between his 4th and 5th toes. I have called and left a message with Dr. Rosa in regards to the consult. I have resumed his diet for now Plan: Await orthopedic surgery consult with expected right foot/toe amputation, venous doppler to rule out DVT. Continue IV vanco/cefepime. Qualifiers: Non-pressure ulcer stage: unspecified non-pressure ulcer stage Qualified Code(s): L97.519 - Non-pressure chronic ulcer of other part of right foot with unspecified severity (3) Hypertension Conclusion/Plan: The patient states that he has been a little high and reported systolic as 144 and diastolic as 85, and he is not prescribed any antihypertensives outpatient. Since arriving on the nursing floor, he has been hypertensive, likely due to pain with a B/P of 148/91. Plan: Await echo in the AM, monitor and give hydralazine as needed for SBP greater than 160. Qualifiers: Hypertension type: essential hypertension Qualified Code(s): I10 - Essential (primary) hypertension (4) GUNJAN (acute kidney injury) Conclusion/Plan: The patient is found to have an elevated creatinine of 1.3, and this has been his trend. He reported having body aches, fevers, chills and has an acute illness. He denies having any history of kidney failure, but does have suspected uncontrolled HTN. Plan: IV fluids, monitor daily labs. (5) PVD (peripheral vascular disease) Conclusion/Plan: The patient has evidence of poor circulation to his BLEs, and also suffers from peripheral neuropathy. He states he has never seen a vascular surgeon, which may be a better option than jumping into an amputation. Plan: Radha doppler to RLE, await surgery recommendations. Consider a vascular surgery consult. - Lab Results Lab results reviewed: Yes Kerwin Bones: 03/15/18 05:25 03/15/18 05:25 - Diagnostic Imaging Results Diagnostic Imaging Results: positive: Final report reviewed Diagnostic Imaging Results Comments: EXAM: RIGHT FOOT RADIOGRAPHY EXAM DATE: 03/14/2018 01:27 IMPRESSION: Chronic findings. Mild soft tissue swelling. Core Measures - Anticipated LOS I expect patient to be DC'd or transferred within 96 hours.: Yes - DVT/VTE - Prophylaxis VTE/DVT Device ordered at admit?: Yes VTE/DVT Prophylaxis med ordered at admit?: No Not Ordered - Medical Reason: Contraindicated - Stroke - Rehab Assessment Rehab services assessment to be ordered?: Yes - AMI - Statin at Admit Aspirin Prescribed on Admit: No Not Ordered - Medical Reason: Contraindicated
[2018-03-14] MEDS: SODIUM CHLORIDE FLUSH 0.9% 10 ML SYRINGE IVP SCH ×2 (17:13→23:23)
[2018-03-14] MEDS: HYDROcod/ACETAM 5/325 MG TABLET PO PRN ×2 (17:40→23:38)
[2018-03-14] MEDS ORDERED: hydrALAZINE INJ 20 MG/ML VIAL IVP PRN (18:25)
[2018-03-14] MEDS ORDERED: VANCOMYCIN PER PHARMACY 100 GM in SODIUM CHLORIDE 0.9% 250 ML IV SCH (19:00)
[2018-03-14] MEDS: CEFEPIME 2 GM in SODIUM CHLORIDE 0.9% MINIBAG 100 ML IV SCH (19:10)
[2018-03-14] MEDS: SODIUM CHLORIDE 0.9% 1,000 ML IV SCH (19:10)
[2018-03-14 19:44] LABS: HB2 TOTAL 12.1 g/dL; HEMOGLOBIN A1C 0.49 g/dL; HEMOGLOBIN A1C % 5.9 % (4.6-6.2)
[2018-03-14] MEDS: TEMAZEPAM 15 MG CAPSULE PO PRN (23:33)
[2018-03-15] MEDS: CEFEPIME 2 GM in SODIUM CHLORIDE 0.9% MINIBAG 100 ML IV SCH ×3 (02:36→19:28)
[2018-03-15] MEDS: SODIUM CHLORIDE 0.9% 1,000 ML IV SCH ×2 (03:23→16:04)
[2018-03-15] MEDS: VANCOMYCIN INJ 1 GM in SODIUM CHLORIDE 0.9% 250 ML IV SCH ×3 (03:23→20:14)
[2018-03-15] MEDS: SODIUM CHLORIDE FLUSH 0.9% 10 ML SYRINGE IVP PRN ×2 (03:42→05:04)
[2018-03-15] MEDS: HYDROcod/ACETAM 5/325 MG TABLET PO PRN (05:04)
[2018-03-15 05:33] LABS: BASOPHILS # (AUTO) 0.1 10^3/uL (0.0-0.1); EOSINOPHILS # (AUTO) 0.1 10^3/uL (0.0-0.7); EOSINOPHILS % (AUTO) 1.7 %; HGB - HEMOGLOBIN 10.6 g/dL (14.0-18.0); LYMPHOCYTES # (AUTO) 1.5 10^3/uL (1.5-3.5); LYMPHOCYTES % (AUTO) 25.8 %; MEAN CORPUSCULAR HEMOGLOBIN 27.7 pg (27.0-31.0); MEAN CORPUSCULAR VOLUME 86.7 fL (80.0-94.0); MEAN PLATELET VOLUME 6.2 fL (7.4-11.4); MONOCYTES # (AUTO) 0.8 10^3/uL (0.0-1.0); MONOCYTES % (AUTO) 13.3 %; NEUTROPHILS # (AUTO) 3.3 10^3/uL (1.5-6.6); NEUTROPHILS % (AUTO) 58.2 %; PLT - PLATELET COUNT 349 10^3/uL (130-450); RED BLOOD COUNT 3.82 10^6/uL (4.70-6.10); RED CELL DISTRIBUTION WIDTH 13.7 % (12.0-15.0); WHITE BLOOD COUNT 5.7 x10^3/uL (4.8-10.8)
[2018-03-15] MEDS ORDERED: HYDROcod/ACETAM 5/325 MG TABLET PO STA (05:45)
[2018-03-15 05:49] LABS: ALBUMIN 2.9 g/dL (3.2-5.5); ALBUMIN/GLOBULIN RATIO 0.7 (1.0-2.2); BILIRUBIN,TOTAL 0.3 mg/dL (0.2-1.0); CALCIUM 8.3 mg/dL (8.5-10.3); CREATININE 1.3 mg/dL (0.6-1.2); CRP - C-REACTIVE PROTEIN 13.7 mg/dL (0-1.0); MAGNESIUM 1.8 mg/dL (1.7-2.8); PHOSPHORUS 4.1 mg/dL (2.5-4.6); TOTAL PROTEIN 6.8 g/dL (6.7-8.2)
[2018-03-15] MEDS: PANTOPRAZOLE 40 MG TABLET PO SCH (07:17)
--- NOTE | 2018-03-15 08:58 | XRAY Report ---
Reason: pre-operative, acute illness Procedure Date: 03/15/2018 Accession Number: [id number] / [id number] Procedure: XR - Chest 1 View X-Ray CPT Code: 96094 FULL RESULT: EXAM: CHEST RADIOGRAPHY EXAM DATE: 03/15/2018 06:59 AM. CLINICAL HISTORY: Pre-operative, acute illness. COMPARISON: XR CHEST PA AND LAT 03/25/2012 1:48 PM. TECHNIQUE: 1 view. FINDINGS: Lungs/Pleura: No focal opacities evident. No pleural effusion. No pneumothorax. Mediastinum: Within exam limitations, the cardiomediastinal contour is normal. Other: None. IMPRESSION: No acute cardiopulmonary abnormality. RADIA
--- NOTE | 2018-03-15 08:58 | Ultrasound Report ---
Reason: RLE swelling, pain, infection Procedure Date: 03/15/2018 Accession Number: [id number] / [id number] Procedure: US - Duplex Venous Limited CPT Code: FULL RESULT: EXAM: RIGHT/LEFT LOWER EXTREMITY VENOUS ULTRASOUND EXAM DATE: 03/15/2018 06:42 AM. CLINICAL HISTORY: RLE swelling, pain, infection. COMPARISON: None. TECHNIQUE: Real-time sonographic vascular imaging was performed by the purchasing buyer through the lower extremity utilizing both color-flow and Doppler spectral analysis. Multiple screening representative static images were saved for review. FINDINGS: Common Femoral Vein (CFV): Normal. CFV-GSV Junction: Normal. Profunda Femoral Vein (PFV): Normal. Femoral Vein (FV) Prox: Normal. Femoral Vein (FV) Mid: Normal. Femoral Vein (FV) Dist: Normal. Popliteal Vein: Normal. Posterior Tibial Veins: Limited visualization. Grossly patent. Peroneal Veins: Limited visualization. Grossly patent. Other: Mildly prominent left inguinal/anterior thigh lymph nodes measuring up to 4.2 x 1.5 x 1.9 cm. IMPRESSION: No evidence for deep venous thrombosis. Nonspecific mildly prominent left inguinal/anterior thigh lymph nodes may be reactive. RADIA
[2018-03-15] MEDS: SODIUM CHLORIDE FLUSH 0.9% 10 ML SYRINGE IVP SCH ×2 (09:07→20:16)
[2018-03-15] MEDS: POLYETHYLENE GLYCOL 3350 17 GM PACKET PO SCH (09:23)
[2018-03-15] MEDS: HYDROcod/ACETAM 7.5 MG/325 MG TABLET PO PRN ×4 (09:23→22:43)
--- NOTE | 2018-03-15 11:45 | PROVIDER PROGRESS NOTE ---
Subjective - Prog Note Date Prog Note Date: 03/15/18 Prog Note Time: 11:44 - Subjective Pt reports feeling: Improved Subjective: Yves complains of re-bleeding from his RLE toe wound that saturated the sheets. He denies shortness of breath, chest pain, nausea, vomiting, a rash, diarrhea, or a new cough. Current Medications - Current Medications Current Medications: Active Medications: Acetaminophen (Tylenol) 650 mg PO Q4HR PRN Hydrocodone Bitart/Acetaminophen (Pike 7.5/325) 1 tab PO Q4HR PRN Hydralazine HCl (Apresoline Inj) 10 mg IVP Q6H PRN Vancomycin HCl 1 gm/ Sodium (Chloride) 250 mls @ 167 mls/hr IV Q8H JORGE Sodium Chloride (Normal Saline 0.9%) 1,000 mls @ 125 mls/hr IV .Q8H JORGE Cefepime HCl 2 gm/ Sodium (Chloride) 100 mls @ 200 mls/hr IV Q8H JORGE Ondansetron HCl (Zofran Inj) 4 mg IVP Q6HR PRN Pantoprazole Sodium (Protonix) 40 mg PO QDAC JORGE Polyethylene Glycol (Miralax) 17 gm PO DAILY JORGE Temazepam (Restoril) 15 mg PO QPM PRN HOME meds: Amitriptyline HCl 100 mg PO QPM 12/12/17 Ciprofloxacin HCl [Cipro] 500 mg PO [id number] 03/14/18 Objective - Vital Signs/Intake & Output Reviewed Vital Signs: Yes Vital Signs: Vital Signs x48h Temp Pulse Resp BP Pulse Ox 03/15/18 07:55 36.6 C 82 16 110/61 98 Intake & Output: Intake & Output 03/12/18 03/13/18 03/14/18 03/15/18 23:59 23:59 23:59 23:59 Intake Total 1600 3162.917 Output Total 200 1025 Balance 1400 2137.917 - Objective General Appearance: positive: No acute distress, Alert Eyes Bilateral: positive: PERRL ENT: positive: Pharynx nml, No signs of dehydration Neck: positive: Thyroid nml, No JVD, Trachea midline Respiratory: positive: Chest non-tender, No respiratory distress, Breath sounds nml Cardiovascular: positive: Regular rate & rhythm, No gallop, Systolic murmur Peripheral Pulses: 0 Dorsalis pedis (R) (doppler faint), 0 Dorsalis pedis (L), 1+ Radial (R), 1+ Radial (L) Abdomen: positive: Non-tender, Nml bowel sounds Back: positive: Nml inspection Skin: positive: Color nml, No rash, Warm, Dry, Other (chronic RLE wound) Extremities: positive: Non-tender, Pedal edema, Joint swelling, Other (loss of sensation to BLEs) Neurologic/Psychiatric: positive: Oriented x3, CN's nml (2-12), Motor nml, Sensation nml, Mood/affect nml Reflexes: Bicep (R): 3+, Bicep (L): 3+ - Lab Results Fish Bones: 03/15/18 05:25 03/15/18 05:25 Other Labs: Lab Results x24hrs 03/15/18 03/15/18 03/15/18 Range/Units 05:25 05:25 05:25 WBC 5.7 (4.8-10.8) x10^3/uL RBC 3.82 L (4.70-6.10) 10^6/uL Hgb 10.6 L (14.0-18.0) g/dL Hct 33.1 L (42.0-52.0) % MCV 86.7 (80.0-94.0) fL MCH 27.7 (27.0-31.0) pg MCHC 32.0 (32.0-36.0) g/dL RDW 13.7 (12.0-15.0) % Plt Count 349 (130-450) 10^3/uL MPV 6.2 L (7.4-11.4) fL Neut # (Auto) 3.3 (1.5-6.6) 10^3/uL Lymph # (Auto) 1.5 (1.5-3.5) 10^3/uL Swift # (Auto) 0.8 (0.0-1.0) 10^3/uL Eos # (Auto) 0.1 (0.0-0.7) 10^3/uL Baso # (Auto) 0.1 (0.0-0.1) 10^3/uL Absolute Nucleated RBC 0.00 x10^3/uL Nucleated RBC % 0.0 /100WBC ESR (0-20) mm/Hr Sodium (135-145) mmol/L Potassium (3.5-5.0) mmol/L Chloride (101-111) mmol/L Carbon Dioxide (21-32) mmol/L Anion Gap (6-13) BUN (6-20) mg/dL Creatinine (0.6-1.2) mg/dL Estimated GFR (MDRD) (>89) Glucose (70-100) mg/dL Glycated Hemoglobin (4.6-6.2) % Estim Average Glucose (70-100) Lactic Acid 1.2 (0.5-2.2) mmol/L Calcium (8.5-10.3) mg/dL Phosphorus (2.5-4.6) mg/dL Magnesium (1.7-2.8) mg/dL Total Bilirubin (0.2-1.0) mg/dL AST (10-42) IU/L ALT (10-60) IU/L Alkaline Phosphatase (42-121) IU/L Total Creatine Kinase (22-269) IU/L C-Reactive Protein (0-1.0) mg/dL Total Protein (6.7-8.2) g/dL Albumin (3.2-5.5) g/dL Globulin (2.1-4.2) g/dL Albumin/Globulin Ratio (1.0-2.2) Lipase (22-51) U/L TSH (0.34-5.60) uIU/mL Free T4 (0.58-1.64) ng/dL Free T3 pg/mL 2.75 (2.5-3.9) pg/mL 03/15/18 03/15/18 03/15/18 Range/Units 05:25 05:25 05:25 WBC (4.8-10.8) x10^3/uL RBC (4.70-6.10) 10^6/uL Hgb (14.0-18.0) g/dL Hct (42.0-52.0) % MCV (80.0-94.0) fL MCH (27.0-31.0) pg MCHC (32.0-36.0) g/dL RDW (12.0-15.0) % Plt Count (130-450) 10^3/uL MPV (7.4-11.4) fL Neut # (Auto) (1.5-6.6) 10^3/uL Lymph # (Auto) (1.5-3.5) 10^3/uL Swift # (Auto) (0.0-1.0) 10^3/uL Eos # (Auto) (0.0-0.7) 10^3/uL Baso # (Auto) (0.0-0.1) 10^3/uL Absolute Nucleated RBC x10^3/uL Nucleated RBC % /100WBC ESR 81 H (0-20) mm/Hr Sodium 134 L (135-145) mmol/L Potassium 3.7 (3.5-5.0) mmol/L Chloride 102 (101-111) mmol/L Carbon Dioxide 24 (21-32) mmol/L Anion Gap 8.0 (6-13) BUN 17 (6-20) mg/dL Creatinine 1.3 H (0.6-1.2) mg/dL Estimated GFR (MDRD) 66 L (>89) Glucose 131 H (70-100) mg/dL Glycated Hemoglobin (4.6-6.2) % Estim Average Glucose (70-100) Lactic Acid (0.5-2.2) mmol/L Calcium 8.3 L (8.5-10.3) mg/dL Phosphorus 4.1 (2.5-4.6) mg/dL Magnesium 1.8 (1.7-2.8) mg/dL Total Bilirubin 0.3 (0.2-1.0) mg/dL AST 21 (10-42) IU/L ALT 20 (10-60) IU/L Alkaline Phosphatase 79 (42-121) IU/L Total Creatine Kinase (22-269) IU/L C-Reactive Protein 13.7 H (0-1.0) mg/dL Total Protein 6.8 (6.7-8.2) g/dL Albumin 2.9 L (3.2-5.5) g/dL Globulin 3.9 (2.1-4.2) g/dL Albumin/Globulin Ratio 0.7 L (1.0-2.2) Lipase (22-51) U/L TSH (0.34-5.60) uIU/mL Free T4 1.01 (0.58-1.64) ng/dL Free T3 pg/mL (2.5-3.9) pg/mL 03/14/18 03/14/18 03/14/18 Range/Units 16:38 13:21 13:21 WBC (4.8-10.8) x10^3/uL RBC (4.70-6.10) 10^6/uL Hgb (14.0-18.0) g/dL Hct (42.0-52.0) % MCV (80.0-94.0) fL MCH (27.0-31.0) pg MCHC (32.0-36.0) g/dL RDW (12.0-15.0) % Plt Count (130-450) 10^3/uL MPV (7.4-11.4) fL Neut # (Auto) (1.5-6.6) 10^3/uL Lymph # (Auto) (1.5-3.5) 10^3/uL Swift # (Auto) (0.0-1.0) 10^3/uL Eos # (Auto) (0.0-0.7) 10^3/uL Baso # (Auto) (0.0-0.1) 10^3/uL Absolute Nucleated RBC x10^3/uL Nucleated RBC % /100WBC ESR (0-20) mm/Hr Sodium (135-145) mmol/L Potassium (3.5-5.0) mmol/L Chloride (101-111) mmol/L Carbon Dioxide (21-32) mmol/L Anion Gap (6-13) BUN (6-20) mg/dL Creatinine (0.6-1.2) mg/dL Estimated GFR (MDRD) (>89) Glucose (70-100) mg/dL Glycated Hemoglobin 5.9 (4.6-6.2) % Estim Average Glucose 123 H (70-100) Lactic Acid (0.5-2.2) mmol/L Calcium (8.5-10.3) mg/dL Phosphorus (2.5-4.6) mg/dL Magnesium (1.7-2.8) mg/dL Total Bilirubin (0.2-1.0) mg/dL AST (10-42) IU/L ALT (10-60) IU/L Alkaline Phosphatase (42-121) IU/L Total Creatine Kinase (22-269) IU/L C-Reactive Protein 16.1 H (0-1.0) mg/dL Total Protein (6.7-8.2) g/dL Albumin (3.2-5.5) g/dL Globulin (2.1-4.2) g/dL Albumin/Globulin Ratio (1.0-2.2) Lipase (22-51) U/L TSH 6.39 H (0.34-5.60) uIU/mL Free T4 (0.58-1.64) ng/dL Free T3 pg/mL (2.5-3.9) pg/mL 03/14/18 03/14/18 03/14/18 Range/Units 13:21 13:21 13:21 WBC (4.8-10.8) x10^3/uL RBC (4.70-6.10) 10^6/uL Hgb (14.0-18.0) g/dL Hct (42.0-52.0) % MCV (80.0-94.0) fL MCH (27.0-31.0) pg MCHC (32.0-36.0) g/dL RDW (12.0-15.0) % Plt Count (130-450) 10^3/uL MPV (7.4-11.4) fL Neut # (Auto) (1.5-6.6) 10^3/uL Lymph # (Auto) (1.5-3.5) 10^3/uL Swift # (Auto) (0.0-1.0) 10^3/uL Eos # (Auto) (0.0-0.7) 10^3/uL Baso # (Auto) (0.0-0.1) 10^3/uL Absolute Nucleated RBC x10^3/uL Nucleated RBC % /100WBC ESR 92 H (0-20) mm/Hr Sodium 132 L (135-145) mmol/L Potassium 4.0 (3.5-5.0) mmol/L Chloride 97 L (101-111) mmol/L Carbon Dioxide 24 (21-32) mmol/L Anion Gap 11.0 (6-13) BUN 18 (6-20) mg/dL Creatinine 1.3 H (0.6-1.2) mg/dL Estimated GFR (MDRD) 66 L (>89) Glucose 99 (70-100) mg/dL Glycated Hemoglobin (4.6-6.2) % Estim Average Glucose (70-100) Lactic Acid 1.4 (0.5-2.2) mmol/L Calcium 8.9 (8.5-10.3) mg/dL Phosphorus (2.5-4.6) mg/dL Magnesium (1.7-2.8) mg/dL Total Bilirubin 0.6 (0.2-1.0) mg/dL AST 21 (10-42) IU/L ALT 22 (10-60) IU/L Alkaline Phosphatase 92 (42-121) IU/L Total Creatine Kinase 68 (22-269) IU/L C-Reactive Protein (0-1.0) mg/dL Total Protein 8.3 H (6.7-8.2) g/dL Albumin 3.6 (3.2-5.5) g/dL Globulin 4.7 H (2.1-4.2) g/dL Albumin/Globulin Ratio 0.8 L (1.0-2.2) Lipase 26 (22-51) U/L TSH (0.34-5.60) uIU/mL Free T4 (0.58-1.64) ng/dL Free T3 pg/mL (2.5-3.9) pg/mL 03/14/18 Range/Units 13:21 WBC 8.7 (4.8-10.8) x10^3/uL RBC 3.95 L (4.70-6.10) 10^6/uL Hgb 11.1 L (14.0-18.0) g/dL Hct 33.6 L (42.0-52.0) % MCV 85.0 (80.0-94.0) fL MCH 28.1 (27.0-31.0) pg MCHC 33.0 (32.0-36.0) g/dL RDW 13.9 (12.0-15.0) % Plt Count 365 (130-450) 10^3/uL MPV 6.8 L (7.4-11.4) fL Neut # (Auto) 6.5 (1.5-6.6) 10^3/uL Lymph # (Auto) 1.2 L (1.5-3.5) 10^3/uL Swift # (Auto) 0.9 (0.0-1.0) 10^3/uL Eos # (Auto) 0.0 (0.0-0.7) 10^3/uL Baso # (Auto) 0.1 (0.0-0.1) 10^3/uL Absolute Nucleated RBC 0.00 x10^3/uL Nucleated RBC % 0.0 /100WBC ESR (0-20) mm/Hr Sodium (135-145) mmol/L Potassium (3.5-5.0) mmol/L Chloride (101-111) mmol/L Carbon Dioxide (21-32) mmol/L Anion Gap (6-13) BUN (6-20) mg/dL Creatinine (0.6-1.2) mg/dL Estimated GFR (MDRD) (>89) Glucose (70-100) mg/dL Glycated Hemoglobin (4.6-6.2) % Estim Average Glucose (70-100) Lactic Acid (0.5-2.2) mmol/L Calcium (8.5-10.3) mg/dL Phosphorus (2.5-4.6) mg/dL Magnesium (1.7-2.8) mg/dL Total Bilirubin (0.2-1.0) mg/dL AST (10-42) IU/L ALT (10-60) IU/L Alkaline Phosphatase (42-121) IU/L Total Creatine Kinase (22-269) IU/L C-Reactive Protein (0-1.0) mg/dL Total Protein (6.7-8.2) g/dL Albumin (3.2-5.5) g/dL Globulin (2.1-4.2) g/dL Albumin/Globulin Ratio (1.0-2.2) Lipase (22-51) U/L TSH (0.34-5.60) uIU/mL Free T4 (0.58-1.64) ng/dL Free T3 pg/mL (2.5-3.9) pg/mL ABX Reporting Has patient been on IV antibiotics over the past 48 hours?: Yes Sepsis Event Note (H) - Evaluation Current Stage of Sepsis: Ruled out Assessment/Plan - Problem List (1) Non-healing ulcer of right foot Impression: [place] [facility] [place], this patient has had several visits with no resolution of his non-healing wound of his right foot since at least January of 2017. He has a deep wound to the inner aspect, posterior ball of his foot, and in between his 4th and 5th toes. He has been bleeding from the toe wound, which is now wrapped with a gauze wrap and no further bleeding has occurred. Ortho surgery, Dr. Rosa saw the patient and will await MRI results. *I called [facility] and spoke to Tremaine Nair MD who recommends a transfer to for proper vascular evaluation. A right venous doppler was negative for a DVT, and I will order an arterial US study while we await the transfer. Plan: Continue IV vanco/cefepime, await arterial studies of BLEs, expect a transfer to [facility] in the AM. Qualifiers: Non-pressure ulcer stage: unspecified non-pressure ulcer stage Qualified Code(s): L97.519 - Non-pressure chronic ulcer of other part of right foot with unspecified severity (2) PVD (peripheral vascular disease) Impression: The patient has evidence of poor circulation to his BLEs, and also suffers from peripheral neuropathy. He has no pedal pulses and very faint popiteal pulses, loss of sensation to his BLEs, and this non-healing right foot ulcer. He states he had never seen a vascular surgeon. A call was made to vascular surgery, Tremaine Nair MD who recommends a transfer for further work up. Plan: Transfer to [facility] in the AM, await aterial US study. (3) Failure of outpatient treatment Impression: The patient has an extensive list of [facility] [place] visits in which he has had the same wound since at least 01/2017. He is post-right second toe amputation, and is at risk for further amputations. He was most recently on Cipro outpatient, but had body aches, fevers, chills, and profound weakness prior to admission. [facility] is agreeable to a transfer to be treated there and Tremaine Nair MD with vascular surgery sees the benefit of potential revascularization to prevent an amputation. Plan: Continue IV vanco/Cefepime. Transfer in the AM for revascularization. (4) Hypertension Impression: The patient states that he has been a little high and reported systolic as 144 and diastolic as 85, and he is not prescribed any antihypertensives outpatient. Since arriving on the nursing floor, he has been hypertensive, likely due to pain with a B/P of 148/91. Plan: Await echo in the AM, monitor and give hydralazine as needed for SBP greater than 160. Qualifiers: Hypertension type: essential hypertension Qualified Code(s): I10 - Essential (primary) hypertension (5) GUNJAN (acute kidney injury) Impression: The patient is found to have an elevated creatinine of 1.3, that remains the same despite IV fluids. He reported having body aches, fevers, chills on admission that have subsided since starting IV treatment. He denies having any history of kidney failure, but does have suspected uncontrolled HTN. He is suspected to have vascular abnormalities which has led to his non-healing right foot ulcers, and reports significant BPH with getting up 5-7 times per night to urinate. I suspect he may have either urinary retention, or renal artery stenosis, that may be a factor in this kidney dysfunction. Plan: IV fluids, obtain imaging to rule out renal artery stenosis, bladder scans, and monitor daily labs. (6) Falls Impression: The patient admits to falls, and luckily has not sustained any permanent damage. He denies loss of consciousness, but admits to BLE weakness and chronic loss of sensation. Plan: Continue fall precautions, limit ambulating during this acute infection. Qualifiers: Encounter type: subsequent encounter Qualified Code(s): W19.XXXD - Unspecified fall, subsequent encounter (7) BPH (benign prostatic hyperplasia) Impression: The patient admits to awaking 5-7 times per night and this has been like this for the past several years. This is more evidence of vascular disease, in addition to his kidney dysfunction and his non-healing right foot. He has never been on Flomax, but this should not be started during this acute illness. Plan: Monitor urinary output, bladder scans, and consider straight cath for urinary retention. Qualifiers: Lower urinary tract symptom presence: symptoms present Lower urinary tract symptom detail: nocturia Qualified Code(s): N40.1 - Benign prostatic hyp erplasia with lower urinary tract symptoms; R35.1 - Nocturia
[2018-03-15] MEDS: hydrALAZINE 10 MG TABLET PO SCH (17:35)
--- NOTE | 2018-03-15 21:18 | Ultrasound Report ---
Reason: PAD, chronic wound Procedure Date: 03/15/2018 Accession Number: [id number] / [id number] Procedure: US - Duplex Lwr Ext Arterial Bilat CPT Code: FULL RESULT: EXAM: Bilateral Lower Extremity Arterial Doppler Ultrasound EXAM DATE: 03/15/2018 09:11 PM. CLINICAL HISTORY: Peripheral artery disease, chronic wound. COMPARISON: None. TECHNIQUE: Real-time sonographic vascular imaging was performed by the independent contractor, utilizing color-flow, Doppler flow, and spectral analysis. Multiple training representative static images were saved for review. FINDINGS: RIGHT: CITY PLANNER: 89.1 cm/sec. SFA Proximal: 61.5 cm/sec. SFA Mid: 101.4 cm/sec. SFA Distal: 84.9 cm/sec. PFA: 52.0 cm/sec. Popliteal Distal: 82.0 cm/sec HUE Distal: 58.0 cm/sec. METHODS ENGINEER: 178.3 cm/sec. Peroneal Distal: 107.4 cm/sec. DPA: 56.7 cm/sec. LEFT: CITY PLANNER: 62.3 cm/sec. SFA Proximal: 100.9 cm/sec. SFA Mid: 103.9 cm/sec. SFA Distal: 74.1 cm/sec. PFA: 73.0 cm/sec. Popliteal: 48.7 cm/sec. HUE: 63.2 cm/sec. METHODS ENGINEER: 92.4 cm/sec. Peroneal Artery Mid: 60.2 cm/sec. DPA: 40.8 cm/sec. IMPRESSION: Patent arterial vasculature in the bilateral lower extremities. No sonographic evidence first an imminent stenosis in the right lower extremity. Drop in velocity suggestive of stenosis between the mid to distal left SFA and between the left distal SFA and popliteal arteries. This could be further evaluated with CTA. RADIA
[2018-03-15] MEDS: TEMAZEPAM 15 MG CAPSULE PO PRN (22:43)
[2018-03-16] MEDS: SODIUM CHLORIDE 0.9% 1,000 ML IV SCH (01:42)
[2018-03-16] MEDS: CEFEPIME 2 GM in SODIUM CHLORIDE 0.9% MINIBAG 100 ML IV SCH (02:54)
[2018-03-16] MEDS: HYDROcod/ACETAM 7.5 MG/325 MG TABLET PO PRN ×2 (03:04→08:50)
[2018-03-16 03:46] LABS: VANCOMYCIN,TROUGH 21.9 ug/mL (10.0-20.0)
[2018-03-16] MEDS ORDERED: VANCOMYCIN INJ 1.25 GM in SODIUM CHLORIDE 0.9% 250 ML IV SCH (06:00)
[2018-03-16] MEDS ORDERED: WATER FOR INJECTION,STERILE 10 ML ONE ×2 (06:22→06:26)
[2018-03-16] MEDS ORDERED: VANCOMYCIN 1 GM VIAL ONE (06:26)
[2018-03-16] MEDS: SODIUM CHLORIDE FLUSH 0.9% 10 ML SYRINGE IVP SCH ×2 (06:39→08:51)
[2018-03-16] MEDS: PANTOPRAZOLE 40 MG TABLET PO SCH (06:40)
--- NOTE | 2018-03-16 07:32 | DISCHARGE SUMMARY ---
"Discharge Summary Admit Date: 03/14/18 Discharge Date: 03/16/18 Discharging Provider: CHOCO Zhu Primary Care Provider: Cale Edwards Code Status: Attempt Resuscitation Condition at Discharge: Good Discharge Disposition: 02 Transfer Acute Care Hosp Discharge Facility Name: [facility] - DIAGNOSES Admission Diagnoses: Encounter for other preprocedural examination (Z01.818) Non-prs chronic ulcer oth prt right foot w unsp severity (L97.519) Essential (primary) hypertension (I10) Acute kidney failure, unspecified (N17.9) Discharge Diagnoses with Status of Each Condition: Non-healing ulcer of right foot (L97.519) chronic on acute, currently on IV vanco/cefepime, improved. GUNJAN (acute kidney injury) (N17.9) Creatinine 1.3, stable. PVD (peripheral vascular disease) (I73.9) evidenced by chronic RLE wound, absent pedal pulses. Failure of outpatient treatment (Z78.9) Previously on Cipro, had body aches, fever, chills, dizziness so came to the ED, stable. Hypertension (I10) No home medications, continue Hydralazine to avoid nephrotoxicity. Recommend follow up with PCP, stable. Falls (W19.XXXA) chronic, stable, no injuries. BPH (benign prostatic hyperplasia) (N40.0) chronic, nocturia reported as awaking 5-7 times per night to urinate. Recommend follow up with PCP. Moderate to severe pulmonary hypertension (I27.20) found on Echo, suggest a sleep study as per PCP orders. 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 Normocytic anemia (D64.9) stable, likely due to chronic infections. - HPI History of Present Illness: Yves Langley is a 67-year old male with a past medical history of hypertension, hyperlipidemia, alcoholism, right charcot foot, right foot fracture, GERD, BPH, tobacco abuse, insomnia, anxiety, and recent falls. The patient recalls getting a piece of glass in his foot about 2 years ago that at first was not noticable, and was removed about 1 year ago after a wound had de veloped on the posterior ball of his foot near his largest toe. In addition, he had a wound develop in between his 4th and 5th toes. He has seen [place] [facility] [place], gotten second opinions, but continued to have pain swelling, and was using the heel of his right foot to ambulate. He was just put on oral antibiotics on 03/11/18 and his wound did not improve. Since Saturday, he has been unbalanced while walking, and had started becoming much more weak. Last evening he began to have body aches, fevers, chills, nausea, visual disturbances, and noticed that his right foot had lots of bleeding. As he tried to get up to the bathroom to clean up his foot, he was not able to as he was profoundly weak. When this continued as he awoke today, he decided to come to the ED. Once in the ED a orthopedic surgery consult was made, who will plan for surgical intervention, likely in the AM. - CONSULTS | PROCEDURES Consultations: Orthopedic surgery-Dr. Roas Procedures: none - HOSPITAL COURSE Hospital Course: The patient has had the same document right foot ulcer since at least January of 2017 as per outpatient wound notes with photos. He had is right second toe amputated at ~1 year ago. He now has an ongoing wound between his 4th and 5th toes that continues to bleed sporadically. The patient saw orthopedic surgery prior to this hospital admission who recommended an MRI that has still not been completed due to lack of MRI hours. On my exam, the patient had very poor sensation to his BLEs, no pedal pulses, and he claimed that he has been getting more frequent infections lately and primarily walks on his right heel. Since he has a good quality of life and enjoys walking his dog, I reached out to [facility], Vascular surgery to further evaluate a vascular etiology as to the cause of his chronic wounds. Orthopedic surgery was consulted, but recommends treating this acute illness. The patient has been on IV vancomycin and IV Cefepime since 03/14/18. His hemoglobin A1 C was normal at 5.9%. A TSH was 6.39, with normal free T3 and T4. His last inflammatory markers were ESR of 81, CRP of 13.7. He has been started on PO Hydralazine 10mg TID for his HTN of which he takes no home meds, and he has only required minimal pain medications of [place] PO. He has been eating but with a poor appetite and has been afebrile since admission. He is very encouraged and medically stable for this transfer to [facility]. Thank you for this work up. - ALLERGIES Allergies/Adverse Reactions: Allergies Allergy/AdvReac Type Severity Reaction Status Date / Time No Known Drug Allergies Allergy Verified 03/14/18 12:24 - MEDICATIONS Home Medications: Ambulatory Orders Medication Instructions Recorded Confirmed Amitriptyline HCl 100 mg PO QPM 12/12/17 03/14/18 Ciprofloxacin HCl [Cipro] 500 mg PO [id number] 03/14/18 03/14/18 - PHYSICAL EXAM AT DISCHARGE General Appearance: positive: No acute distress, Alert Eyes Bilateral: positive: PERRL ENT: positive: ENT inspection nml, Pharynx nml, No signs of dehydration Neck: positive: Nml inspection, Thyroid nml, No JVD, Trachea midline Respiratory: positive: Chest non-tender, No respiratory distress, Breath sounds nml Cardiovascular: positive: Regular rate & rhythm, No gallop, Systolic murmur Peripheral Pulses: positive: 1+ (BUEs), 0 (no pedal pulses) Abdomen: positive: Non-tender, Nml bowel sounds, Other (rounded, soft) Back: positive: Nml inspection Skin: positive: No rash, Warm, Dry Extremities: positive: Pedal edema, Joint swelling, Other (absent pulses, cool to BLEs.) Reflexes: Bicep (R): 3+, Bicep (L): 3+ - LABS Result Diagrams: 03/15/18 05:25 03/15/18 05:25 - DIAGNOSTIC IMAGING Diagnostic Imaging Results Comments: EXAM: Bilateral Lower Extremity Arterial Doppler Ultrasound EXAM DATE: 03/15/2018 09:11 PM IMPRESSION: Patent arterial vasculature in the bilateral lower extremities. No sonographic evidence first an imminent stenosis in the right lower extremity. Drop in velocity suggestive of stenosis between the mid to distal left SFA and between the left distal SFA and popliteal arteries. This could be further ev aluated with CTA. - SEPSIS Current Stage of Sepsis: Ruled out - FOLLOW UP Follow Up: You were admitted with right foot ulcers that would not heal after over 2 years of wound care and failed outpatient oral antibiotics. You were started on IV antibiotics that will continue at [facility]. After your history and physical exam, you are found to have peripheral arterial disease. I called [facility] and spoke with Tremaine Nair MD, vascular surgery who agreed with my suspicion and is happy to accept you for further work up. Please follow up with your PCP regarding your half-way blood pressure control. There are also great medications for enlarged prostate that you can ask your primary care provider about. An echocardiogram shows right heart pressures that are abnormally high, so you will need a sleep study as the first step. Please have your PCP order this after your vascular procedures. - TIME SPENT Time Spent in Discharge (Minutes): 45"
--- NOTE | 2018-03-16 07:36 | Discharge Plan ---
Discharge Plan Disposition: 02 Transfer Acute Care Hosp Condition: Good Prescriptions: Vancomycin/0.9 % Sod Chloride [Vanco 1.25 gm/250 ml-0.9% NaCl] 1.25 gm IV Q12H #1 plast..bag Diet: Regular Activity Restrictions: No Restrictions Shower Restrictions: No Driving Restrictions: No Additional Instructions or Follow Up instructions: You were admitted with right foot ulcers that would not heal after over 2 years of wound care and failed outpatient oral antibiotics. You were started on IV antibiotics that will continue at [facility]. After your history and physical exam, you are found to have peripheral arterial disease. I called [facility] and spoke with Tremaine Nair MD, vascular surgery who agreed with my suspicion and is happy to accept you for further work up. Please follow up with your PCP regarding your intermediate card tender blood pressure control. There are also great medications for enlarged prostate that you can ask your primary care provider about. A echocardiogram shows right heart pressures that are abnormally high, so you will need a sleep study as the first step. Please have your PCP order this after your vascular procedures. Enjoy walking [place]! Best wishes to you. No Smoking: If you smoke, Please STOP! Call for help. Follow-up with: Cale Edwards MD [Primary Care Provider] -
[2018-03-16 07:54] VITALS: BP 135/71
[2018-03-16] MEDS: POLYETHYLENE GLYCOL 3350 17 GM PACKET PO SCH (08:51)
[2018-03-16] MEDS: hydrALAZINE 10 MG TABLET PO SCH (08:51)
--- NOTE | 2018-03-17 08:20 | CONSULTATION NOTE ---
Referring Provider Name of Referring Provider:: Alesha WILHELM Consult Date: 03/15/18 Chief Complaint - Chief Complaint Chief Complaint: Informed that patient was inpatient History of Present Illness - History of Present Illness HPI Comment/Other: Yves, previously seen by Dr. Vela of the orthopedic clinic as an outpatient, who has had long-standing right foot draining wound. He has been treated by the [facility] clinic. He has also seen his primary care practitioner. He has been on recent oral antibiotics. He reportedly presented to the ER on 03/14/2018 because he had increased swelling in his right foot. He says that the swelling is gotten much better since IV antibiotics were started yesterday. Orthopedics service is informed that the patient is inpatient and as such evaluate some in the setting of his long-standing care. History - Past Medical History Cardiovascular: reports: Hypertension, High cholesterol Respiratory: reports: None Neuro: reports: Peripheral neuropathy Endocrine/Autoimmune: reports: None GI: reports: GERD, Hepatitis ATHLETIC MONITOR: reports: None : reports: Benign prostate hypertrophy, Nocturia, Frequency HEENT: reports: Chronic vision loss, Chronic sinusitis Psych: reports: Depression, Anxiety Musculoskeletal: reports: Osteoarthritis, Fatigue Derm: reports: None MRSA Hx?: Yes - Past Surgical History General: reports: Colonoscopy Ortho: reports: Other (right 2nd toe removal) HEENT: reports: Tonsil/Adenoidectomy - Family & Social History Family History: Mother: , Father: Living arrangement: At home Living Situation: Alone Social History Notes: The patient states that he lives alone, 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 He is still aquinted with his ex- and has 2 grown children, a son and a daughter. He admits to long-standing alcoholism, but states that he has been sober for the past 4 years. He admits to using tobacco from age [age], and denies illicit drug use. He wishes to be a FULL code. - Substance History Use: Uses substance without health or social issues: NONE Abuse: Recurrent use of substance despite neg consequences: NONE Dependence: Experiences withdrawal or developed tolerances: NONE - POLST Patient has POLST: No POLST Status: Full Code Meds/Allgy - Home Medications Home Medications: Ambulatory Orders Medication Instructions Recorded Confirmed Amitriptyline HCl 100 mg PO QPM 12/12/17 03/14/18 Cefepime 2 gm IV Q8H vial 03/16/18 HYDROcodone/ACET 7.5/325 [[place] 1 tab PO Q4HR PRN tablet 03/16/18 7.5/325] Vancomycin/0.9 % Sod Chloride 1.25 gm IV Q12H #1 plast..bag 03/16/18 [Vanco 1.25 gm/250 ml-0.9% NaCl] hydrALAZINE [Apresoline] 10 mg PO TIDWM tablet 03/16/18 - Allergies Allergies/Adverse Reactions: Allergies Allergy/AdvReac Type Severity Reaction Status Date / Time No Known Drug Allergies Allergy Verified 03/14/18 12:24 Exam - Physical Exam Comments/Other: Patient is well-developed 67-year-old gentleman lying in bed. Right foot has dressing in place which is removed. Singular toe is absent. The lateral border of his foot last 3 digits show significant moisture and some maceration. There is a dry healed eschar on the plantar aspect of his foot at the metatarsophalangeal region. There is some swelling but no active drainage appreciated. Light touch sensation is subjectively decreased but present. He is able to minimally initiate flexion extension of his toes and is able to initiate flexion extension of his ankle.Trace erythema around the toes but no significant streaking or other erythema more proximally. Conclusion/Plan - Lab Results Lab results reviewed: Yes Fish Bones: 03/15/18 05:25 03/15/18 05:25 - Other Other Results/Comments: Patient 67-year-old gentleman, reportedly with no diabetes, he does have a chronic draining wound reportedly in his right foot. He also has some moisture between his toes. There is a question of osteomyelitis. He had previously seen Dr. Vela in the office and had an MRI ordered though that was not yet done. I do recommend continue with Dr. Vela and the patient's plan of an MRI to further evaluate and decide on further treatment whether be nonoperative or operative. Of note the patient may have another cause such as a vascular that may be causing his chronic draining wound and as such I do recommend vascular consultation at some point to help further understand the reasons for his pathology. I discussed the above with the patient and Lilian wheezy [employer]GR[employer]ULT[employer]ODUCE [employer]. We will await the MRI and decide on further treatment. Patient's questions were answered he verbalized understanding agreement satisfaction with plan. I would recommend continued antibiotics and DVT prophylaxis as necessary.
== END 2018-03-16 10:12 | disposition short-term general hospital (02) | DRG 593 ==
LOC: ED 12:14 → MS2 15:10
PROVIDERS: ADMIT Nurse Practitioner; ATTEND Nurse Practitioner
DX: L08.9 Local infection of the skin and subcutaneous tissue, unspecified (principal); L97.519 Non-pressure chronic ulcer of other part of right foot with unspecified severity; N17.9 Acute kidney failure, unspecified; A52.16 Charcot's arthropathy (tabetic); I73.9 Peripheral vascular disease, unspecified; I10 Essential (primary) hypertension; N40.1 Benign prostatic hyperplasia with lower urinary tract symptoms; R35.0 Frequency of micturition; R35.1 Nocturia; I27.20 Pulmonary hypertension, unspecified; D64.9 Anemia, unspecified; Z91.81 History of falling; K21.9 Gastro-esophageal reflux disease without esophagitis; E78.5 Hyperlipidemia, unspecified; Z87.891 Personal history of nicotine dependence; G47.00 Insomnia, unspecified; F41.9 Anxiety disorder, unspecified; Z89.421 Acquired absence of other right toe(s); E78.00 Pure hypercholesterolemia, unspecified; G62.9 Polyneuropathy, unspecified; H54.7 Unspecified visual loss; J32.9 Chronic sinusitis, unspecified; F32.9 Major depressive disorder, single episode, unspecified; M19.90 Unspecified osteoarthritis, unspecified site; Z86.14 Personal history of Methicillin resistant Staphylococcus aureus infection; F10.21 Alcohol dependence, in remission
CPT/HCPCS: 36415; 71045; 80053; 80202; 82550; 83036; 83605; 83690; 83735; 84100; 84439; 84443; 84481; 85025; 85651; 86140; 87040; 93005; 93306; 93925; 93971; 96365; 96375; 99284; 99285

== ENCOUNTER 2018-03-25 09:28 | Outpatient (CLI) | payer MEDICARE, MEDICAID ==
[2018-03-25 17:32] LABS: BASOPHILS # (AUTO) 0.1 10^3/uL (0.0-0.1); BASOPHILS % (AUTO) 1.2 %; EOSINOPHILS # (AUTO) 0.1 10^3/uL (0.0-0.7); EOSINOPHILS % (AUTO) 1.7 %; HGB - HEMOGLOBIN 11.8 g/dL (14.0-18.0); LYMPHOCYTES % (AUTO) 35.2 %; MEAN CORPUSCULAR HEMOGLOBIN 28.1 pg (27.0-31.0); MEAN CORPUSCULAR HGB CONC 32.2 g/dL (32.0-36.0); MEAN CORPUSCULAR VOLUME 87.2 fL (80.0-94.0); MEAN PLATELET VOLUME 6.9 fL (7.4-11.4); MONOCYTES # (AUTO) 0.4 10^3/uL (0.0-1.0); NEUTROPHILS % (AUTO) 53.9 %; PLT - PLATELET COUNT 466 10^3/uL (130-450); RED BLOOD COUNT 4.21 10^6/uL (4.70-6.10); RED CELL DISTRIBUTION WIDTH 14.3 % (12.0-15.0); WHITE BLOOD COUNT 5.5 x10^3/uL (4.8-10.8)
[2018-03-25 17:44] LABS: BUN - BLOOD UREA NITROGEN 14 mg/dL (6-20); CALCIUM 9.1 mg/dL (8.5-10.3); CARBON DIOXIDE - CO2 27 mmol/L (21-32); CHLORIDE 103 mmol/L (101-111); CREATININE 1.1 mg/dL (0.6-1.2); GFR - MDRD 80 (>89); GLUCOSE 111 mg/dL (70-100); SODIUM 138 mmol/L (135-145)
[2018-03-25 18:13] LABS: CRP - C-REACTIVE PROTEIN < 1.0 mg/dL (0-1.0)
== END 2018-03-25 09:29 | disposition home or self-care (01) ==
LOC: LAB.F 09:28
PROVIDERS: ATTEND Internal Medicine
DX: L03.115 Cellulitis of right lower limb (principal)
CPT/HCPCS: 36415; 80048; 85025; 85651; 86140

== ENCOUNTER 2018-04-09 08:00 | Outpatient (CLI) | payer MEDICARE, MEDICAID ==
[2018-04-09 17:49] LABS: BASOPHILS # (AUTO) 0.1 10^3/uL (0.0-0.1); BASOPHILS % (AUTO) 1.9 %; EOSINOPHILS # (AUTO) 0.1 10^3/uL (0.0-0.7); EOSINOPHILS % (AUTO) 2.3 %; HGB - HEMOGLOBIN 12.5 g/dL (14.0-18.0); LYMPHOCYTES % (AUTO) 41.8 %; MEAN CORPUSCULAR HEMOGLOBIN 27.9 pg (27.0-31.0); MEAN CORPUSCULAR HGB CONC 32.6 g/dL (32.0-36.0); MEAN CORPUSCULAR VOLUME 85.7 fL (80.0-94.0); MEAN PLATELET VOLUME 7.6 fL (7.4-11.4); MONOCYTES # (AUTO) 0.3 10^3/uL (0.0-1.0); MONOCYTES % (AUTO) 7.2 %; NEUTROPHILS # (AUTO) 2.2 10^3/uL (1.5-6.6); NEUTROPHILS % (AUTO) 46.8 %; PLT - PLATELET COUNT 297 10^3/uL (130-450); RED BLOOD COUNT 4.49 10^6/uL (4.70-6.10); RED CELL DISTRIBUTION WIDTH 14.7 % (12.0-15.0); WHITE BLOOD COUNT 4.8 x10^3/uL (4.8-10.8)
== END 2018-04-09 23:59 | disposition home or self-care (01) ==
LOC: LAB.F 08:00
PROVIDERS: ATTEND Internal Medicine
DX: L03.115 Cellulitis of right lower limb (principal)
CPT/HCPCS: 36415; 85025; 85651

== ENCOUNTER 2018-04-17 08:46 | Outpatient (CLI) | payer MEDICARE, MEDICAID ==
[2018-04-17] MEDS ORDERED: GADOBUTROL 10 MMOL/10 ML VIAL ONE (11:40)
[2018-04-17] MEDS ORDERED: GADOBUTROL 10 MMOL/10 ML VIAL IVP ONE (12:49)
--- NOTE | 2018-04-18 09:54 | MRI Report ---
Reason: NON-PRS CHRONIC ULCER OTH PRT RIGHT FOOT W UNSP SE Procedure Date: 04/17/2018 Accession Number: [id number] / [id number] Procedure: MRI - Foot RT W/WO CPT Code: FULL RESULT: EXAM: RIGHT FOREFOOT MRI WITHOUT AND WITH CONTRAST EXAM DATE: 04/17/2018 01:12 PM. CLINICAL HISTORY: Chronic right foot ulcer. COMPARISON: Right foot radiography from 03/14/2018. TECHNIQUE: Multiplanar, multisequence T1-weighted and fluid-sensitive sequences of the forefoot before and after administration of intravenous contrast. IV contrast: 10 cc Gadavist. Other: None. FINDINGS: Focal soft tissue ulcer at the plantar aspect of the forefoot, plantar to the third metatarsal phalangeal joint. Small third metatarsophalangeal joint effusion. Marrow edema and enhancement at the third metatarsal head and third proximal phalanx. Previous amputation of the second toe to the level of the second metatarsal phalangeal joint. Hammertoe deformities at the remaining toes. Severe osteoarthritis at the first and second tarsometatarsal joints. Moderate to severe third tarsometatarsal joint osteoarthritis. Ligaments: The visualized collateral ligaments are intact. Tendons: Mild third digit flexor digitorum tenosynovitis at the level of the third metatarsal phalangeal joint. No tendon tear. Musculature: Mild edema within the distal aspects of the second and third interosseous muscles. Other: No Mortons neuroma. No intermetatarsal bursitis. Subcutaneous edema and enhancement at the forefoot. No definite drainable abscess is seen. IMPRESSION: 1. Focal soft tissue ulcer at the plantar aspect of the forefoot, plantar to the third metatarsal phalangeal joint. Enhancing granulation tissue or phlegmon around the ulcer. No definite drainable abscess is seen. 2. Findings concerning for osteomyelitis at the third metatarsal head and third proximal phalanx. 3. Small third metatarsal phalangeal joint diffusion and enhancement suggestive of inflammatory synovitis or septic arthritis. 4. Previous amputation of the second toe. Hammertoe deformities at the remaining toes. 5. First, second, and third tarsometatarsal joint osteoarthritis. 6. Mild edema within the distal aspects of the second and third interosseous muscle suggestive of myositis. 7. Subcutaneous edema and enhancement at the forefoot suggestive of cellulitis. [facility] MUSCULOSKELETAL RADIOLOGY SECTION
== END 2018-04-17 08:47 | disposition home or self-care (01) ==
LOC: DI 08:46
PROVIDERS: ATTEND Orthopaedic Surgery
DX: L97.519 Non-pressure chronic ulcer of other part of right foot with unspecified severity (principal); Z89.421 Acquired absence of other right toe(s); M20.41 Other hammer toe(s) (acquired), right foot; R60.0 Localized edema; M19.071 Primary osteoarthritis, right ankle and foot
CPT/HCPCS: 73720; A9585

== ENCOUNTER 2018-04-24 13:17 | Outpatient (CLI) | payer MEDICARE, MEDICAID ==
[2018-04-24 17:34] LABS: BASOPHILS # (AUTO) 0.1 10^3/uL (0.0-0.1); BASOPHILS % (AUTO) 1.4 %; EOSINOPHILS # (AUTO) 0.1 10^3/uL (0.0-0.7); EOSINOPHILS % (AUTO) 1.5 %; HGB - HEMOGLOBIN 12.6 g/dL (14.0-18.0); LYMPHOCYTES # (AUTO) 1.6 10^3/uL (1.5-3.5); LYMPHOCYTES % (AUTO) 31.2 %; MEAN CORPUSCULAR HEMOGLOBIN 28.1 pg (27.0-31.0); MEAN CORPUSCULAR HGB CONC 32.6 g/dL (32.0-36.0); MEAN CORPUSCULAR VOLUME 85.9 fL (80.0-94.0); MEAN PLATELET VOLUME 7.7 fL (7.4-11.4); MONOCYTES # (AUTO) 0.5 10^3/uL (0.0-1.0); NEUTROPHILS # (AUTO) 2.9 10^3/uL (1.5-6.6); NEUTROPHILS % (AUTO) 56.9 %; PLT - PLATELET COUNT 287 10^3/uL (130-450); RED BLOOD COUNT 4.51 10^6/uL (4.70-6.10); RED CELL DISTRIBUTION WIDTH 14.6 % (12.0-15.0); WHITE BLOOD COUNT 5.1 x10^3/uL (4.8-10.8)
[2018-04-24 17:42] LABS: CALCIUM 9.2 mg/dL (8.5-10.3); CREATININE 1.1 mg/dL (0.6-1.2)
== END 2018-04-24 13:18 | disposition home or self-care (01) ==
LOC: LAB.F 13:17
PROVIDERS: ATTEND Internal Medicine
DX: M86.179 Other acute osteomyelitis, unspecified ankle and foot (principal)
CPT/HCPCS: 36415; 80048; 85025; 85651

== ENCOUNTER 2019-04-17 07:06 | Emergency (ER) | payer MEDICARE, MEDICAID ==
--- NOTE | 2019-04-17 07:16 | ED Physician Documentation ---
PD HPI SKIN - Stated complaint Stated Complaint: R FOOT SORE - History of Present Illness Timing - onset: How many days ago (several) Timing - duration: Days (several) Timing - details: Gradual onset, Still present Location: RLE (near 1st AL head. He states he has had a callus at the base of the foot for a long time and he been trying to clear some of the skin. He states a quarter of skin did come out last week and there was some mild purulence with it. Slight bleeding. Since that time he has had some minimal drainage. Yesterday into today he has noticed swelling and redness of the foot along the dorsal aspect as well up to about the level of the ankle. He has had wound infections in the foot previously.) Quality / character: Painful, Discolored (red), Swelling, Draining Associated symptoms: Myalgias. No: Fever, N/V/D Similar symptoms before: Diagnosis (foot infections with cellulitis; no osteo in the past.) Recently seen: Clinic (He was seen a week ago in the clinic for tooth pain and started on amoxicillin antibiotic. He was seen by the dentist on Saturday which is 4 days ago and had the tooth extracted. He states the tooth and gum have improved considerably.) Review of Systems Constitutional: reports: Myalgias, Fatigue. denies: Fever Nose: denies: Rhinorrhea / runny nose, Congestion Throat: reports: Dental pain / toothache. 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 : Benign prostate hypertrophy, Nocturia, Frequency HEENT: Chronic vision loss, Chronic sinusitis Psych: Depression, Anxiety Musculoskeletal: Osteoarthritis, Fatigue Derm: None - Past Surgical History Past Surgical History: Yes General: Colonoscopy Ortho: Other (right 2nd toe removal) HEENT: Tonsil/Adenoidectomy - Present Medications Home Medications: Ambulatory Orders Medication Instructions Recorded Confirmed Amitriptyline HCl 100 mg PO QPM 12/12/17 03/14/18 Amoxicillin 500 mg PO 04/17/19 Doxycycline Monohydrate 100 mg PO BID #14 tablet 04/17/19 Mupirocin 1 applic TP TID #15 g 04/17/19 Tramadol HCl 50 mg PO 04/17/19 Tramadol HCl 50 mg PO Q6H PRN #20 tablet 04/17/19 - Allergies Allergies/Adverse Reactions: Allergies Allergy/AdvReac Type Severity Reaction Status Date / Time No Known Drug Allergies Allergy Verified 04/17/19 07:25 - Social History Does the pt smoke?: No Smoking Status: Former smoker Does the pt drink ETOH?: No Does the pt have substance abuse?: No - Immunizations Immunizations are current?: Yes Immunizations: TDAP current <10years - POLST Patient has POLST: No POLST Status: Full Code PD ED PE NORMAL - Vitals Vital signs reviewed: Yes - General General: Alert and oriented X 3, No acute distress, Well developed/nourished - HEENT HEENT: Pharynx benign. No: Dentition benign (The left upper canine tooth socket appears well-healing without any signs of current infection. Status post extraction) - Neck Neck: Supple, no meningeal sign, No adenopathy - Cardiac Cardiac: RRR, No murmur - Respiratory Respiratory: Clear bilaterally - Derm Derm: Normal color, Warm and dry - Extremities Extremities: Other (The right foot shows a full-thickness round ulcerative lesion with some thin skin thickening surrounding it on the base of the foot near the first metatarsal head. There is a callus noted in a corn type thickening towards the fourth metatarsal head without any signs of infection. The one near the first metatarsal head has mild clear drainage which I culture. There is some surrounding redness and tenderness and swelling of the soft tissue around that wound and also to the dorsum of the foot extending to the level of about the ankle. There is minimal warmth and redness on the anterior aspect of the lower tibial area. There is no posterior calf tenderness or swelling.) - Neuro Neuro: Alert and oriented X 3, No motor deficit, Normal speech Results - Vitals Vitals: Vital Signs - 24 hr 04/17/19 07:20 Temperature 36.4 C L Heart Rate 72 Respiratory 18 Rate Blood Pressure 173/77 H O2 Saturation 99 Oxygen O2 Source Room air - Labs Labs: Microbiology 04/17/19 07:58 Wound Culture - Preliminary Foot - Right Laboratory Tests 04/17/19 04/17/19 04/17/19 08:49 08:49 08:49 WBC 7.0 RBC 3.95 L Hgb 11.2 L Hct 34.5 L MCV 87.3 MCH 28.4 MCHC 32.5 RDW 12.8 Plt Count 312 MPV 8.7 Neut # (Auto) 4.7 Lymph # (Auto) 1.5 Crowley # (Auto) 0.7 Eos # (Auto) 0.1 Baso # (Auto) 0.1 Absolute Nucleated RBC 0.00 Nucleated RBC % 0.0 ESR 67 H Sodium 133 L Potassium 4.4 Chloride 100 L Carbon Dioxide 25 Anion Gap 8.0 BUN 10 Creatinine 1.1 Estimated GFR (MDRD) 80 L Glucose 114 H Lactic Acid Calcium 8.5 Total Bilirubin 0.7 AST 21 ALT 15 Alkaline Phosphatase 78 Total Protein 7.3 Albumin 3.6 Globulin 3.7 Albumin/Globulin Ratio 1.0 Lipase 29 04/17/19 08:49 WBC RBC Hgb Hct MCV MCH MCHC RDW Plt Count MPV Neut # (Auto) Lymph # (Auto) Crowley # (Auto) Eos # (Auto) Baso # (Auto) Absolute Nucleated RBC Nucleated RBC % ESR Sodium Potassium Chloride Carbon Dioxide Anion Gap BUN Creatinine Estimated GFR (MDRD) Glucose Lactic Acid 1.3 Calcium Total Bilirubin AST ALT Alkaline Phosphatase Total Protein Albumin Globulin Albumin/Globulin Ratio Lipase - Rads (name of study) right foot Radiology: Prelim report reviewed (no bony abnormality to suggest bone infection), See rad report PD MEDICAL DECISION MAKING - ED course Complexity details: reviewed old records (He was hospitalized February 2018 for similar problem originating from the wound at the fourth metatarsal and between the toes. It was treated with IV antibiotics and improved. An arterial ultrasound showed some diminishing flow through the mid superficial femoral artery. He was transferred to [facility] for vascular evaluation but he states he was only seen in the ER and the vascular surgeon was not on-call still for the night and he ended up leaving the ER and not being admitted. He apparently was to see the patient's specialist outpatient since he did not have an arterial occlusion. He states he did not have a follow-up visit.), reviewed results (xray okay. ESR elevated but has had it high pre viously and not really back to baseline), considered differential, d/w patient ED course: Review of prior cultures have shown consistent some version of staph though not the same each time. He also has had some other germs along the way last year. The most consistent sensitivities have been to doxycycline and the quinolones. This point I would try him on doxycycline twice daily along with some pain medicine pending the culture result. You should resume care with the wound care clinic and I will try referral otherwise he is to call us for primary care for referral. Departure - Departure Disposition: 01 Home, Self Care Clinical Impression: Wound infection Foot ulcer with fat layer exposed Qualifiers: Laterality: right Qualified Code(s): L97.512 - Non-pressure chronic ulcer of other part of right foot with fat layer exposed Condition: Stable Record reviewed to determine appropriate education?: Yes Instructions: ED Wound Care Follow-Up: Cale Edwards MD [Primary Care Provider] - Prescriptions: Doxycycline Monohydrate 100 mg PO BID #14 tablet Mupirocin 1 applic TP TID #15 g Tramadol HCl 50 mg PO Q6H PRN #20 tablet PRN Reason: Pain Comments: Cleanse the wound twice daily and apply mupirocin antibiotic ointment. Wrap it with an Keon wrap and dressing to protect it. Doxycycline antibiotic twice daily for the next week. This may need to be modified based on the culture results when they are available and 2 days or so. Tylenol or ibuprofen if needed for pains and add tramadol if needed for worse pain. I did put in for a wound care clinic consultation. Call them for an appointment time for early next week. See if the need of referral from your primary care for this as well. Discharge Date/Time: 04/17/19 11:01
[2019-04-17 07:26] VITALS: BP 173/77
[2019-04-17] MEDS ORDERED: CLINDAMYCIN 600 MG/50 ML 50 ML IV ONE (07:59)
--- NOTE | 2019-04-17 08:24 | XRAY Report ---
Reason: right foot sore/infection, 1st MT head area Procedure Date: 04/17/2019 Accession Number: [id number] / [id number] Procedure: XR - Foot 3 View RT CPT Code: Final Report FULL RESULT: EXAM: RIGHT FOOT RADIOGRAPHY EXAM DATE: 04/17/2019 07:58 AM. CLINICAL HISTORY: Right foot sore/infection, 1st MT head area. COMPARISON: FOOT 3 VIEW RT 03/14/2018 1:27 PM. TECHNIQUE: 3 views. FINDINGS: Bones: Previous amputation of the right second toe. No acute fracture or focal bone lytic change detected. No significant progression of dystrophic changes at the tarsometatarsal articulations, with joint space narrowing and progression of osteophytic endplate spurring. The articulations of the forefoot and proximal midfoot also appear stable. Joints: Joint space narrowing at the tarsometatarsal articulations as before. Soft Tissues: Generalized soft tissue prominence, without subcutaneous air or subcutaneous radiopaque foreign body. Increased density within the subcutaneous tissues suggesting a degree of edema or even cellulitis. IMPRESSION: No acute bone lytic changes detected. Soft tissue findings suggestive of edema or even cellulitis. [facility]
[2019-04-17 09:04] LABS: BASOPHILS # (AUTO) 0.1 10^3/uL (0.0-0.1); BASOPHILS % (AUTO) 0.9 %; EOSINOPHILS # (AUTO) 0.1 10^3/uL (0.0-0.7); EOSINOPHILS % (AUTO) 1.8 %; HGB - HEMOGLOBIN 11.2 g/dL (14.0-18.0); LYMPHOCYTES # (AUTO) 1.5 10^3/uL (1.5-3.5); LYMPHOCYTES % (AUTO) 20.6 %; MEAN CORPUSCULAR HEMOGLOBIN 28.4 pg (27.0-31.0); MEAN CORPUSCULAR HGB CONC 32.5 g/dL (32.0-36.0); MEAN CORPUSCULAR VOLUME 87.3 fL (80.0-94.0); MEAN PLATELET VOLUME 8.7 fL (7.4-11.4); MONOCYTES # (AUTO) 0.7 10^3/uL (0.0-1.0); MONOCYTES % (AUTO) 9.4 %; NEUTROPHILS # (AUTO) 4.7 10^3/uL (1.5-6.6); NEUTROPHILS % (AUTO) 66.9 %; PLT - PLATELET COUNT 312 10^3/uL (130-450); RED BLOOD COUNT 3.95 10^6/uL (4.70-6.10); RED CELL DISTRIBUTION WIDTH 12.8 % (12.0-15.0)
[2019-04-17 09:15] LABS: ALBUMIN 3.6 g/dL (3.2-5.5); BILIRUBIN,TOTAL 0.7 mg/dL (0.2-1.0); CALCIUM 8.5 mg/dL (8.5-10.3); CREATININE 1.1 mg/dL (0.6-1.2); TOTAL PROTEIN 7.3 g/dL (6.7-8.2)
== END 2019-04-17 11:01 | disposition home or self-care (01) ==
LOC: ED 07:06
DX: L97.512 Non-pressure chronic ulcer of other part of right foot with fat layer exposed (principal); L08.9 Local infection of the skin and subcutaneous tissue, unspecified; G62.9 Polyneuropathy, unspecified; F41.9 Anxiety disorder, unspecified; F32.9 Major depressive disorder, single episode, unspecified; I10 Essential (primary) hypertension; E78.00 Pure hypercholesterolemia, unspecified; N40.1 Benign prostatic hyperplasia with lower urinary tract symptoms; R35.0 Frequency of micturition; R35.1 Nocturia; H54.7 Unspecified visual loss; M19.90 Unspecified osteoarthritis, unspecified site; K75.9 Inflammatory liver disease, unspecified; Z87.891 Personal history of nicotine dependence
CPT/HCPCS: 36415; 80053; 83605; 83690; 85025; 85651; 87070; 87181; 87205; 96365; 99284

== ENCOUNTER 2019-05-22 12:20 | Emergency (ER) | payer MEDICARE, MEDICAID ==
[2019-05-22 12:28] VITALS: BP 178/110
--- NOTE | 2019-05-22 13:08 | ED Physician Documentation ---
PD HPI LOWER EXT INJURY - Stated complaint Stated Complaint: RT FOOT PX - Chief complaint Chief Complaint: Wound - History obtained from History obtained from: Patient - History of Present Illness PD HPI LOW EXT INJURY LOCATION: Right, Foot (has had callous with infection on base of 1st MT head plantar. Was in wound care clinic and had it pared down to clean tissue and bandaged. He had bandage off today and the base looked red and had some yellow drainage to dressing. He was concerned and here for wound check. Has appt with wound care next week.) Timing - details: Gradual onset Associated symptoms: No: Weakness, Numbness, Swelling Recently seen: Clinic (Wound Care Clinic) Review of Systems Constitutional: denies: Fever, Chills Neurologic: reports: Numbness (in feet chronically). 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 : Benign prostate hypertrophy, Nocturia, Frequency HEENT: Chronic vision loss, Chronic sinusitis Psych: Depression, Anxiety Musculoskeletal: Osteoarthritis, Fatigue Derm: None - Past Surgical History Past Surgical History: Yes General: Colonoscopy Ortho: Other HEENT: Tonsil/Adenoidectomy - Present Medications Home Medications: Ambulatory Orders Medication Instructions Recorded Confirmed Amitriptyline HCl 100 mg PO QPM 12/12/17 03/14/18 Amoxicillin 500 mg PO 04/17/19 Doxycycline Monohydrate 100 mg PO BID #14 tablet 04/17/19 Mupirocin 1 applic TP TID #15 g 04/17/19 Tramadol HCl 50 mg PO 04/17/19 Tramadol HCl 50 mg PO Q6H PRN #20 tablet 04/17/19 - Allergies Allergies/Adverse Reactions: Allergies Allergy/AdvReac Type Severity Reaction Status Date / Time No Known Drug Allergies Allergy Verified 05/22/19 12:28 - Social History Does the pt smoke?: No Smoking Status: Never smoker Does the pt drink ETOH?: No Does the pt have substance abuse?: No - Immunizations Immunizations are current?: Yes Immunizations: TDAP current <10years - POLST Patient has POLST: No POLST Status: Full Code PD ED PE NORMAL - Vitals Vital signs reviewed: Yes - General General: Alert and oriented X 3, No acute distress, Well developed/nourished - Derm Derm: Normal color, Warm and dry - Extremities Extremities: Other (right plantar foot at 1st MT head showing ulceration through skin to fatty layer. The base is pink and vascular redness. No purulence. The skin at rim of the ulcer has some mild edge of white/harder just 2-3 mm wide c/w appearance of not having been trimmed too close to viable tissue. I think it looks okay and good base color. ) Results - Vitals Vitals: Vital Signs - 24 hr 05/22/19 12:22 Temperature 35.9 C L Heart Rate 89 Respiratory 17 Rate Blood Pressure 178/110 H O2 Saturation 97 Oxygen O2 Source Room air PD MEDICAL DECISION MAKING - ED course Complexity details: reviewed old records, considered differential (the wound looks good with pink/red base. He thought this was a bad thing, but is actually viable healthy tissue. ), d/w patient Departure - Departure Disposition: Home, Self Care Clinical Impression: Visit for wound check Foot ulcer Qualifiers: Laterality: right Non-pressure ulcer stage: with fat layer exposed Qualified Code(s): L97.512 - Non-pressure chronic ulcer of other part of right foot with fat layer exposed Condition: Stable Comments: Your wound actually looks pretty good at this point. Follow-up with wound care clinic as planned. You can do daily wound cleansing and dressing changes. Discharge Date/Time: 05/22/19 14:03
[2019-05-22] MEDS ORDERED: MUPIROCIN 2% OINT 1 GM TOP STA (13:36)
== END 2019-05-22 14:03 | disposition home or self-care (01) ==
LOC: ED 12:20
DX: L97.512 Non-pressure chronic ulcer of other part of right foot with fat layer exposed (principal); G62.9 Polyneuropathy, unspecified; I10 Essential (primary) hypertension
CPT/HCPCS: 99282; A9270

== ENCOUNTER 2020-05-24 12:21 | Outpatient (CLI) | payer MEDICARE, MEDICAID ==
[2020-05-24 17:52] LABS: BASOPHILS # (AUTO) 0.1 10^3/uL (0.0-0.1); BASOPHILS % (AUTO) 1.6 %; EOSINOPHILS # (AUTO) 0.1 10^3/uL (0.0-0.7); EOSINOPHILS % (AUTO) 2.4 %; HCT - HEMATOCRIT 43.3 % (42.0-52.0); LYMPHOCYTES # (AUTO) 1.9 10^3/uL (1.5-3.5); LYMPHOCYTES % (AUTO) 35.3 %; MEAN CORPUSCULAR HEMOGLOBIN 28.5 pg (27.0-31.0); MEAN CORPUSCULAR HGB CONC 32.3 g/dL (32.0-36.0); MEAN CORPUSCULAR VOLUME 88.2 fL (80.0-94.0); MEAN PLATELET VOLUME 9.5 fL (7.4-11.4); MONOCYTES # (AUTO) 0.5 10^3/uL (0.0-1.0); MONOCYTES % (AUTO) 8.4 %; NEUTROPHILS # (AUTO) 2.9 10^3/uL (1.5-6.6); NEUTROPHILS % (AUTO) 52.1 %; PLT - PLATELET COUNT 298 10^3/uL (130-450); RED BLOOD COUNT 4.91 10^6/uL (4.70-6.10); RED CELL DISTRIBUTION WIDTH 13.5 % (12.0-15.0); WHITE BLOOD COUNT 5.5 x10^3/uL (4.8-10.8)
[2020-05-24 18:15] LABS: ALBUMIN 4.3 g/dL (3.2-5.5); ALBUMIN/GLOBULIN RATIO 1.2 (1.0-2.2); ALKALINE PHOSPHATASE 118 IU/L (42-121); ALT ALANINE AMINOTRANSFERASE 21 IU/L (10-60); AST ASPARTATE AMINOTRANSFERASE 23 IU/L (10-42); BILIRUBIN,TOTAL 0.8 mg/dL (0.2-1.0); BUN - BLOOD UREA NITROGEN 13 mg/dL (6-20); CALCIUM 9.3 mg/dL (8.5-10.3); CARBON DIOXIDE - CO2 29 mmol/L (21-32); CHLORIDE 101 mmol/L (101-111); CHOL/HDL RATIO 5.7 (<5.0); CHOLESTEROL 216 mg/dL; CREATININE 1.3 mg/dL (0.6-1.2); GFR - MDRD 66 (>89); GLUCOSE 123 mg/dL (70-100); HDL CHOLESTEROL 38 mg/dL; LDL CHOLESTEROL,CALCULATED 138 mg/dL; LDL/HDL RATIO 3.6 (<3.6); POTASSIUM 4.3 mmol/L (3.5-5.0); SODIUM 138 mmol/L (135-145); TOTAL PROTEIN 7.9 g/dL (6.7-8.2); TRIGLYCERIDES 199 mg/dL; VLDL CHOLESTEROL 40 mg/dL
== END 2020-05-24 12:22 | disposition home or self-care (01) ==
LOC: LAB.N 12:21
PROVIDERS: ATTEND Internal Medicine
DX: E78.5 Hyperlipidemia, unspecified (principal); Z79.899 Other long term (current) drug therapy; Z12.5 Encounter for screening for malignant neoplasm of prostate
CPT/HCPCS: 36415; 80053; 80061; 85025; G0103; 83721; 84153

== ENCOUNTER 2020-06-21 11:08 | Day surgery (SDC) | payer MEDICARE, MEDICAID ==
[2020-06-21] MEDS ORDERED: LACTATED RINGERS 1,000 ML IV ONE ×2 (11:17→15:17)
[2020-06-21] MEDS ORDERED: METOCLOPRAMIDE 10 MG/2 ML VIAL IVP PRN (12:31)
[2020-06-21] MEDS ORDERED: ONDANSETRON 4 MG/2 ML VIAL IVP PRN (12:31)
[2020-06-21] MEDS ORDERED: ATROPINE ABBOJECT 1 MG/10 ML SYRINGE IVP PRN (12:31)
[2020-06-21] MEDS ORDERED: MORPHINE 2 MG/ML CARPUJECT IVP PRN (12:31)
[2020-06-21] MEDS ORDERED: HYDROmorphone 0.5 MG/0.5 ML SYRINGE IVP PRN (12:31)
[2020-06-21] MEDS ORDERED: fentaNYL 100 MCG/2 ML VIAL IVP PRN (12:31)
[2020-06-21] MEDS ORDERED: ePHEDrine 50 MG/ML VIAL IVP PRN (12:31)
[2020-06-21] MEDS ORDERED: NALOXONE 0.4 MG/ML VIAL IVP PRN (12:31)
--- NOTE | 2020-06-21 12:31 | ANESTHESIA ---
Pre-Anesthesia VS, & Labs - Diagnosis screening - Procedure colonoscopy Vital Signs: Temp Pulse Resp BP Pulse Ox 36.3 C L 84 16 166/82 H 99 06/21/20 11:29 06/21/20 11:29 06/21/20 11:29 06/21/20 11:29 06/21/20 11:29 Height: 6 ft 3 in Weight (kg): 109 kg Body Mass Index: 30.0 BMI Classification: Obese - NPO >8 hours - Lab Results Lab results reviewed: Yes Home Medications and Allergies Amitriptyline HCl 100 mg PO QPM 12/12/17 Amoxicillin 500 mg PO 04/17/19 Tramadol HCl 50 mg PO 04/17/19 Allergies/Adverse Reactions: Allergies Allergy/AdvReac Type Severity Reaction Status Date / Time No Known Drug Allergies Allergy Verified 05/22/19 12:28 Anes History & Medical History - Anesthetic History Anesthesia Complications: reports: No previous complications Family history of Anesthesia Complications: Denies Family history of Malignant Hyperthermia: Denies - Medical History Cardiovascular: reports: Hypertension, High cholesterol Pulmonary: reports: None, Sleep apnea (undiagnosed) Gastrointestinal: reports: GERD, Hepatitis Urinary: reports: Benign prostate hypertrophy, Nocturia, Frequency Neuro: reports: Peripheral neuropathy Musculoskeletal: reports: Osteoarthritis, Fatigue Endocrine/Autoimmune: reports: None Blood Disorders: reports: None Skin: reports: None Smoking Status: Never smoker - Surgical History General: reports: Colonoscopy Eyes Ears Nose Throat (EENT): reports: Tonsil/Adenoidectomy Orthopedic: reports: Other Exam General: Alert, Oriented x3, Cooperative, No acute distress Dental: WNL Mouth Openin Fingerbreadth Neck Mobility: Normal Mallampati classification: I Respiratory: Lungs clear, Normal breath sounds, No respiratory distress, No accessory muscle use Cardiovascular: Regular rate, Normal S1, Normal S2, No murmurs Plan Anesthesia Type: General, Total IV Consent for Procedure(s) Verified and Reviewed: Yes Code Status: Attempt Resuscitation ASA classification: 2-Mild systemic disease Is this case an emergency?: No
[2020-06-21] MEDS ORDERED: LACTATED RINGERS 1,000 ML IV SCH (13:00)
[2020-06-21] MEDS ORDERED: PROPOFOL 200 MG/20 ML VIAL IVP ONE (14:19)
--- NOTE | 2020-06-21 15:23 | ANESTHESIA POST OP EVALUATION ---
Anesthesia Post Eval - Post Anesthesia Eval Vitals: Last Vital Signs Temp 36.3 C L 06/21/20 11:29 Pulse 77 06/21/20 15:21 Resp 21 06/21/20 15:21 BP 97/45 L 06/21/20 15:21 Pulse Ox 100 06/21/20 15:21 CV Function Including HR & BP: Stable Pain Control: Satisfactory Nausea & Vomiting: Negative Mental Status: Baseline Respiratory Status: Airway Patent Hydration Status: Satisfactory Anesthesia Complications: None
[2020-06-21 15:38] VITALS: BP 125/73
== END 2020-06-21 11:09 | disposition home or self-care (01) ==
LOC: SDS 11:08
PROVIDERS: ATTEND Surgery
PROC: 0DBL8ZZ Excision of Transverse Colon, Via Natural or Artificial Opening Endoscopic (ICD-10-PCS; principal; 2020-06-21 12:15)
DX: Z12.11 Encounter for screening for malignant neoplasm of colon (principal); D12.3 Benign neoplasm of transverse colon; K57.30 Diverticulosis of large intestine without perforation or abscess without bleeding; K64.8 Other hemorrhoids; E66.9 Obesity, unspecified; Z68.30 Body mass index [BMI] 30.0-30.9, adult; N40.0 Benign prostatic hyperplasia without lower urinary tract symptoms; I10 Essential (primary) hypertension; E34.4 Constitutional tall stature; Z87.891 Personal history of nicotine dependence
CPT/HCPCS: 45385; J7120; 88305

== ENCOUNTER 2020-09-21 08:08 | Outpatient (CLI) | payer MEDICARE, MEDICAID ==
[2020-09-21 11:55] LABS: BILIRUBIN,URINE NEGATIVE (NEGATIVE); GLUCOSE, URINE (UA) NEGATIVE (NEGATIVE); KETONES,URINE (UA) NEGATIVE (NEGATIVE); LEUKOCYTE ESTERASE, URINE NEGATIVE (NEGATIVE); NITRITE,URINE NEGATIVE (NEGATIVE); OCCULT BLOOD,URINE NEGATIVE (NEGATIVE); PROTEIN,URINE NEGATIVE (NEGATIVE); UROBILINOGEN,URINE 0.2 (NORMAL) E.U./dL (NORMAL)
[2020-09-21 12:15] LABS: CLARITY,URINE CLEAR (CLEAR); RBC,URINE 0-5 /HPF (0-5); SQUAMOUS EPITHELIAL CELL,UR NONE SEEN (<= Few); WBC,URINE 0-3 /HPF (0-3)
[2020-09-21 12:16] LABS: BACTERIA,URINE Rare /HPF (None Seen)
[2020-09-21 12:24] LABS: ESTIMATED AVERAGE GLUCOSE 146 mg/dL (70-100); HEMOGLOBIN A1c% 6.7 % (4.27-6.07)
[2020-09-21 12:29] LABS: ALBUMIN 4.1 g/dL (3.2-5.5); ALBUMIN/GLOBULIN RATIO 1.2 (1.0-2.2); BILIRUBIN,TOTAL 0.8 mg/dL (0.2-1.0); CALCIUM 9.2 mg/dL (8.5-10.3); CREATININE 1.4 mg/dL (0.6-1.2); POTASSIUM 4.2 mmol/L (3.5-5.0); TOTAL PROTEIN 7.5 g/dL (6.7-8.2)
== END 2020-09-21 08:09 | disposition home or self-care (01) ==
LOC: LAB.N 08:08
PROVIDERS: ATTEND Internal Medicine
DX: N18.9 Chronic kidney disease, unspecified (principal); R73.9 Hyperglycemia, unspecified
CPT/HCPCS: 36415; 80053; 81001; 83036; 87086

== ENCOUNTER 2021-01-02 12:37 | Outpatient (CLI) | payer MEDICARE, MEDICAID ==
[2021-01-02 13:05] LABS: BASOPHILS # (AUTO) 0.1 10^3/uL (0.0-0.1); BASOPHILS % (AUTO) 1.2 %; EOSINOPHILS # (AUTO) 0.1 10^3/uL (0.0-0.7); EOSINOPHILS % (AUTO) 2.2 %; HCT - HEMATOCRIT 41.7 % (42.0-52.0); HGB - HEMOGLOBIN 13.2 g/dL (14.0-18.0); LYMPHOCYTES # (AUTO) 1.9 10^3/uL (1.5-3.5); LYMPHOCYTES % (AUTO) 37.4 %; MEAN CORPUSCULAR HEMOGLOBIN 28.4 pg (27.0-31.0); MEAN CORPUSCULAR HGB CONC 31.7 g/dL (32.0-36.0); MEAN CORPUSCULAR VOLUME 89.7 fL (80.0-94.0); MEAN PLATELET VOLUME 9.1 fL (7.4-11.4); MONOCYTES # (AUTO) 0.4 10^3/uL (0.0-1.0); MONOCYTES % (AUTO) 7.4 %; NEUTROPHILS # (AUTO) 2.6 10^3/uL (1.5-6.6); NEUTROPHILS % (AUTO) 51.6 %; PLT - PLATELET COUNT 275 10^3/uL (130-450); RED BLOOD COUNT 4.65 10^6/uL (4.70-6.10); RED CELL DISTRIBUTION WIDTH 13.6 % (12.0-15.0)
[2021-01-02 13:25] LABS: ALBUMIN 4.3 g/dL (3.2-5.5); ALBUMIN/GLOBULIN RATIO 1.3 (1.0-2.2); BILIRUBIN,TOTAL 0.7 mg/dL (0.2-1.0); CALCIUM 9.7 mg/dL (8.5-10.3); CREATININE 1.4 mg/dL (0.6-1.2); POTASSIUM 5.3 mmol/L (3.5-5.0); TOTAL PROTEIN 7.7 g/dL (6.7-8.2)
[2021-01-02 20:19] LABS: ESTIMATED AVERAGE GLUCOSE 137 mg/dL (70-100); HEMOGLOBIN A1c% 6.4 % (4.27-6.07)
== END 2021-01-02 12:38 | disposition home or self-care (01) ==
LOC: LAB 12:37
PROVIDERS: ATTEND Internal Medicine
DX: E11.9 Type 2 diabetes mellitus without complications (principal)
CPT/HCPCS: 36415; 80053; 83036; 85025

== ENCOUNTER 2021-04-03 09:58 | Outpatient (CLI) | payer MEDICARE, MEDICAID ==
[2021-04-03 10:35] LABS: ESTIMATED AVERAGE GLUCOSE 131 mg/dL (70-100); HEMOGLOBIN A1c% 6.2 % (4.27-6.07)
[2021-04-03 10:36] LABS: ALBUMIN 4.1 g/dL (3.2-5.5); ALBUMIN/GLOBULIN RATIO 1.2 (1.0-2.2); BILIRUBIN,TOTAL 1.3 mg/dL (0.2-1.0); CALCIUM 9.1 mg/dL (8.5-10.3); CREATININE 1.1 mg/dL (0.6-1.2); POTASSIUM 4.1 mmol/L (3.5-5.0); TOTAL PROTEIN 7.5 g/dL (6.7-8.2)
== END 2021-04-03 09:59 | disposition home or self-care (01) ==
LOC: LAB 09:58
PROVIDERS: ATTEND Internal Medicine
DX: E11.9 Type 2 diabetes mellitus without complications (principal)
CPT/HCPCS: 36415; 80053; 83036

== ENCOUNTER 2022-03-26 13:08 | Outpatient (CLI) | payer MEDICARE, MEDICAID ==
[2022-03-26 13:37] LABS: ALBUMIN 4.8 g/dL (3.2-5.5); ALBUMIN/GLOBULIN RATIO 1.3 (1.0-2.2); BILIRUBIN,TOTAL 1.1 mg/dL (0.2-1.0); CALCIUM 9.5 mg/dL (8.5-10.3); CREATININE 1.6 mg/dL (0.6-1.2); TOTAL PROTEIN 8.6 g/dL (6.7-8.2)
[2022-03-26 13:43] LABS: ESTIMATED AVERAGE GLUCOSE 134 mg/dL (70-100); HEMOGLOBIN A1c% 6.3 % (4.27-6.07)
[2022-03-26 15:37] LABS: CREATININE,URINE 337.1 mg/dL; MICROALBUM/CREATININE RATIO,UR 5.9 ug/mg (<30.0)
== END 2022-03-26 13:09 | disposition home or self-care (01) ==
LOC: LAB 13:08
PROVIDERS: ATTEND Family Medicine
DX: E11.42 Type 2 diabetes mellitus with diabetic polyneuropathy (principal)
CPT/HCPCS: 36415; 80053; 82043; 82570; 83036

== ENCOUNTER 2022-06-10 09:55 | Emergency (ER) | payer MEDICARE, MEDICAID ==
[2022-06-10] MEDS ORDERED: SODIUM CHLORIDE 0.9% 1,000 ML IV STA (11:01)
[2022-06-10 11:20] LABS: BASOPHILS # (AUTO) 0.1 10^3/uL (0.0-0.1); BASOPHILS % (AUTO) 1.2 %; EOSINOPHILS # (AUTO) 0.1 10^3/uL (0.0-0.7); EOSINOPHILS % (AUTO) 1.6 %; HCT - HEMATOCRIT 37.8 % (42.0-52.0); LYMPHOCYTES # (AUTO) 1.4 10^3/uL (1.5-3.5); LYMPHOCYTES % (AUTO) 32.3 %; MEAN CORPUSCULAR HEMOGLOBIN 27.8 pg (27.0-31.0); MEAN CORPUSCULAR HGB CONC 31.7 g/dL (32.0-36.0); MEAN CORPUSCULAR VOLUME 87.5 fL (80.0-94.0); MEAN PLATELET VOLUME 9.4 fL (7.4-11.4); MONOCYTES # (AUTO) 0.4 10^3/uL (0.0-1.0); MONOCYTES % (AUTO) 8.9 %; NEUTROPHILS # (AUTO) 2.4 10^3/uL (1.5-6.6); PLT - PLATELET COUNT 221 10^3/uL (130-450); RED BLOOD COUNT 4.32 10^6/uL (4.70-6.10); RED CELL DISTRIBUTION WIDTH 13.2 % (12.0-15.0); WHITE BLOOD COUNT 4.3 x10^3/uL (4.8-10.8)
--- NOTE | 2022-06-10 11:24 | ED Physician Documentation ---
History of Present Illness - Stated complaint Stated Complaint: FALL, HIT HEAD, IN A HAZE - Chief complaint Chief Complaint: Trauma Hd/Nk - History obtained from History obtained from: Patient - Additonal information Additional information: The patient comes to the emergency department by private vehicle for chief complaint of near syncopal episode. The patient has a longstanding history of episodes of lightheadedness/dizziness and states that he has been noticing them especially over the last couple weeks. However, he has had these for years previously and has occasionally had other episodes of syncope or near syncope. He just saw his doctor 2 days ago for this and A cardiology referral has been sent. The patient states that he has been working out and made some dietary changes and thought that he was actually doing fairly well. He felt good this morning went to sit down on the toilet when he suddenly began to feel lightheaded. Patient he would fall off the toilet so he began to get down on the floor but as he was getting down, he began to pass out and fell his head hit the door frame. Patient slumped onto the floor but was awake during the entire episode. He states it took a few minutes for him self to be able to maneuver out of the doorway, at which time he was able to get up and walk to his bed. Patient laid down for some time before he felt well enough to get up and walk to his car and drive here. The patient denies any other symptoms besides the lightheadedness/near syncope, other than some generalized weakness after the event. He did not have any chest pain or shortness of breath. No nausea or sweating. The patient has a history of hypertension for which she takes medications and also borderline diabetes, though he states that last time he saw his doctor, they said that his blood sugars look very good and that he did not need to be on medication at this point in time. The patient denies any heart problems. No other complaints at this time. He states he is starting to feel better but is not quite back to his normal self. PD PAST MEDICAL HISTORY - Past Medical History Cardiovascular: Hypertension, High cholesterol Respiratory: None, Sleep apnea (undiagnosed) Neuro: Peripheral neuropathy Endocrine/Autoimmune: None GI: GERD, Hepatitis MEDICAL ADVISOR: None : Benign prostate hypertrophy, Nocturia, Frequency HEENT: Chronic vision loss, Chronic sinusitis Psych: Depression, Anxiety Musculoskeletal: Osteoarthritis, Fatigue Derm: None - Past Surgical History Past Surgical History: Yes General: Colonoscopy Ortho: Other HEENT: Tonsil/Adenoidectomy - Present Medications Home Medications: Ambulatory Orders Medication Instructions Recorded Confirmed Amitriptyline HCl 100 mg PO QPM 12/12/17 06/21/20 - Allergies Allergies/Adverse Reactions: Allergies Allergy/AdvReac Type Severity Reaction Status Date / Time No Known Drug Allergies Allergy Verified 06/10/22 10:21 - Social History Does the pt smoke?: No Smoking Status: Never smoker Does the pt drink ETOH?: No Does the pt have substance abuse?: No - Immunizations Immunizations are current?: Yes Immunizations: TDAP current <10years - POLST Patient has POLST: No POLST Status: Full Code PD ED PE NORMAL - Vitals Vital signs reviewed: Yes - General General: Alert and oriented X 3, No acute distress, Well developed/nourished - HEENT HEENT: Atraumatic, PERRL, EOMI, Moist mucous membranes - Neck Neck: Supple, no meningeal sign - Cardiac Cardiac: RRR, No murmur, Strong equal pulses - Respiratory Respiratory: No respiratory distress, Clear bilaterally - Abdomen Abdomen: Soft, Non tender, Non distended - Derm Derm: Normal color, Warm and dry, No rash - Extremities Extremities: No deformity, No edema - Neuro Neuro: Alert and oriented X 3, cataloging assistant 2-12 intact, Normal speech, Other (No focal deficits) - Psych Psych: Normal mood, Normal affect Results - Vitals Vitals: Oxygen O2 Source Room air - EKG (time done) 1030 EKG releavant findings:: EKG personally interpreted by author of this note. Relevant findings are: Rate: Rate (enter#) (72) Rhythm: NSR [place]: Normal Intervals: Normal NM Ischemia: Normal ST segments Compare to prior EKG: Old EKG unavailable Computer interpretation: Agree with computer - Labs Labs: Laboratory Tests 06/10/22 06/10/22 11:15 11:15 WBC 4.3 L RBC 4.32 L Hgb 12.0 L Hct 37.8 L MCV 87.5 MCH 27.8 MCHC 31.7 L RDW 13.2 Plt Count 221 MPV 9.4 Neut # (Auto) 2.4 Lymph # (Auto) 1.4 L [place] # (Auto) 0.4 Eos # (Auto) 0.1 Baso # (Auto) 0.1 Absolute Nucleated RBC 0.00 Nucleated RBC % 0.0 Sodium 139 Potassium 4.6 Chloride 105 Carbon Dioxide 26 Anion Gap 8.0 BUN 16 Creatinine 1.4 H Estimated GFR (MDRD) 60 L Glucose 103 H Calcium 8.8 Total Bilirubin 0.6 AST 19 ALT 18 Alkaline Phosphatase 91 Total Protein 7.0 Albumin 4.0 Globulin 3.0 Albumin/Globulin Ratio 1.3 Lipase 36 - Rads (name of study) CT head Relevant Findings:: Final report received, See rad report (nad) PD Medical Decision Making - ED course Complexity details: reviewed results, re-evaluated patient, considered differential, d/w patient ED course: The patient was worked up with labs and CT scan of the head, as well as EKG. He was given IV fluids. The work-up was ordered and reviewed by me, and unremarkable. I have d/w the pt that no emergent condition has been identified today. I have encouraged him to go through with his plans to follow up with cardiology. Departure - Departure Disposition: 01 Home, Self Care Clinical Impression: Postural dizziness with near syncope Condition: Stable Instructions: ED Near Syncope Unkn Comments: Your labs, EKG, and CT scan of the head all look good. It is not clear what has been causing your recurrent episodes of dizziness/lightheadedness, and the plan to follow-up with cardiology is a good 1. Please continue to work with your primary doctor on this. Please get some extra rest today and be sure that you are drinking 8 to 10 cups of water every day to stay hydrated. If you develop chest pain or shortness of breath, please return to the emergency department immediately. Discharge Date/Time: 06/10/22 12:38
[2022-06-10 11:34] LABS: ALBUMIN/GLOBULIN RATIO 1.3 (1.0-2.2); BILIRUBIN,TOTAL 0.6 mg/dL (0.2-1.0); CALCIUM 8.8 mg/dL (8.5-10.3); CREATININE 1.4 mg/dL (0.6-1.2); POTASSIUM 4.6 mmol/L (3.5-5.0)
--- NOTE | 2022-06-10 11:55 | CT Report ---
PROCEDURE: HEAD WO INDICATIONS: syncope/head injury/headache TECHNIQUE: Noncontrast 4.5 mm thick angled axial sections acquired from the foramen magnum to the vertex. For r adiation dose reduction, the following was used: automated exposure control, adjustment of mA and/or kV according to patient size. COMPARISON: None. FINDINGS: Image quality: Excellent. CSF spaces: Basal cisterns are patent. No extra-axial fluid collections. Ventricles are normal in size and shape. Brain: No midline shift. No intracranial masses or hemorrhage. [place]-white matter interface is norm al. Skull and face: Calvarium and visualized facial bones are intact, without suspicious lesions. Sinuses: There is fluid opacification in the ethmoid air cells and partially visualized maxillary sin uses. Bony reactive thickening of the left maxillary sinus is noted consistent with chronic sinusitis . The mastoid air cells are clear. IMPRESSION: No acute intracranial abnormality Reviewed by: Cornelius Donaldson on 06/10/2022 11:54 AM PDT Approved by: Cornelius Donaldson on 06/10/2022 11:54 AM PDT Station ID: [id number]
[2022-06-10 12:09] VITALS: BP 141/78
== END 2022-06-10 12:38 | disposition home or self-care (01) ==
LOC: ED 09:55
DX: R55 Syncope and collapse (principal); R42 Dizziness and giddiness
CPT/HCPCS: 36415; 80053; 83690; 85025; 93005; 96360; 99284

== ENCOUNTER 2022-07-10 10:54 | Outpatient (CLI) | payer MEDICARE, MEDICAID ==
--- NOTE | 2022-07-10 11:55 | CARDIAC PROCEDURE NOTE ---
Stress Test Report Service Date: 07/10/22 Service Time: 11:00 Ordering Provider: Nilam Mackenzie MD Indication for Test: Assess exertional dyspnea, occurring in the context of neuropathy and increasing episodes of lightheadedness, pre-syncope and at least one natalie syncopal episode. Significant Medical History: Yves presents for an exercise tolerance today to evaluate a complicated symptom complex that includes progressive exertional dyspnea, worsening peripheral neuropathy and lightheadedness, with concern for effects of his current medications (that include amitriptyline, gabapentin and losartan). He has had episodic lightheadedness dating back at least as far as 1 year and possibly further; this was episodic but has become more frequent in the past couple of months. He reports that about 2 months ago he was his blood pressure was found to be elevated and he was started on losartan, 75 mg at bedtime. He has been on amitriptyline for many years as a sleep aid but describes a very narrow window for benefit, stating that a single tablet is often not sufficient to obtain the sleep benefit, but when he breaks the tablet in 4 pieces and takes an extra quarter this is usually effective for sleep but can worsen his mental clarity and associates with lightheadedness the following day. He also takes gabapentin, ranging between 4-800 mg 3 times daily. He has noted worsening of his daytime lightheadedness episodes as alluded to above, and in fact was seen at the [facility] Emergency Dept within the past month, for an episode of severe near syncope, with possible hitting his head on a door frame. An EKG was unremarkable and a head CT was without acute abnormal findings. The record does not give a lot of information regarding blood pressure at that ED visit. He notes blood pressure lability that is considerably increased in recent weeks, with both higher readings as well as lower ones that he typically detects following exertion. He reports that he had started to increase his workouts at the gym doing more stationary bike riding and was finding blood pressure coming down after these episodes. His exertional dyspnea has been increasing, but he reports this is less of a problem than the lightheadedness alluded to above. He denies experiencing any chest pain or heaviness, either by itself, in combination with any of these other symptoms. Cardiac Risk Factors: Positive for treated hypertension, hyperlipidemia (Currently treated due to reported poor tolerance of a statin) and probable diettreated diabetes; negative for family history of known coronary heart disease in close relatives and also for tobacco smoking (likely not a risk 45 years after he quit smoking). Type of Stress Test: Exercise Treadmill Test (ETT) Procedure: -Exercise Treadmill Test- After signing informed consent, the patient performed treadmill exercise using a Eddi protocol. The patient exercised for 5 minutes 44 seconds and achieved a peak heart rate of 135 (92 percent predicted maximum heart rate for age), and an estimated workload of 7.1 METS. The test was terminated due to fatigue/shortness of breath. Resting heart rate: 106 Peak heart rate: 135 Elevated at rest with blunted HR increase in response to exercise. Resting BP: 156/90 (supine, with HR 68) then 101/63 (after 2 min standing, with HR 106) BP response to exercise: BP initially increased from 101/63 to 124/57 (in early stage II) with subsequent decrease to 95/37 (upright, in early recovery). After assuming supine position again the BP increased 2 minutes later to 184/78. Two minutes after drinking some water and standing again his BP was 166/74. Rhythm during exercise: Sinus rhythm throughout. Symptoms: He became significantly dyspneic, which became the primary reason for stopping his exercise; he denied any chest discomfort whatsoever. He was lightheaded starting exercise (following BP measured at 101/63) with full resolution while continuing the exercise. During the planned one-minute "cool down" (treadmill flat at 1.4 mph) he again became lightheaded (as BP was found to be 95/37), with resolution again upon lying supine. EKG at rest showed normal sinus rhythm with borderline J-point depression in several leads. EKG at peak stress showed sinus tachycardia with more evident J-point depression with updloping ST segments, likely NOT meeting diagnostic EKG criteria for ischemia. No imaging was ordered with this stress test. IMagdi MD, was present throughout this treadmill stress study and supervised it in its entirety. Summary: 1) Exercise tolerance slightly reduced for age and gender as evidenced by ALEJANDRO of 5.2%. 2) Normal resting EKG. 3) Adequate level of exercise was achieved on this treadmill stress test. 4) Abnormal BP response to exercise. 5) J-point depression with upsloping ST segments likely NOT meeting diagnostic EKG criteria for ischemia was seen at peak stress. 6) No imaging was ordered with this test. Conclusions and Recommendations: 1) No clear evidence for inducible ischemia obtained on this ETT (though ETT has reduced sensitivity to detect ischemia when not coupled with echo or SPECT imaging). 2) Exertional dyspnea became limiting and prompted test discontinuation. 3) He demonstrated severe orthostatic hypotension, both at the onset of exercise and again, more dramatically, in the post exercise recovery period. The basis for these findings (which seem compatible with his symptom concerns) is not clear, but he should be evaluated for progressive autonomic neuropathy and the role of his current primary medications (losartan, amitriptyline and gabapentin) should be carefully considered. 4) Following study conclusion I was able to review the results in detail by phone with his referring provider (Dr. Mackenzie). We agreed that referral to a qualified Neurologist with access to autonomic function testing (probably at [facility] or the [facility]) may be an appropriate next step.
== END 2022-07-10 10:55 | disposition home or self-care (01) ==
LOC: DI 10:54
PROVIDERS: ATTEND Family Medicine
DX: R06.02 Shortness of breath (principal); R55 Syncope and collapse; G62.9 Polyneuropathy, unspecified; I10 Essential (primary) hypertension; E78.5 Hyperlipidemia, unspecified
CPT/HCPCS: 93017

== ENCOUNTER 2023-07-25 14:22 | Inpatient (IN) | payer MEDICARE, MEDICAID ==
--- NOTE | 2023-07-25 14:47 | ED Physician Documentation ---
PD HPI FOCAL NEURO - Stated complaint Stated Complaint: NUMB,TINGLY,CHEST PX - Chief complaint Chief Complaint: Neuro - History obtained from History obtained from: Patient - Additional information Additional information: This is a 73-year-old male who has a history of hypertension, peripheral neuropathy, hepatitis, anxiety and depression who presents stating "I think I had a stroke." He states about 45 minutes Prior to arrival around a 1350, he was at the gas station trying to get gas when he suddenly could not grab the gas nozzle with his Right arm and instead had to use his left arm to pump the gas. He then felt like he could not speak for a brief period of time. Since then, he has had improved sensation and range of motion of the right arm though is still feels weak. He also is now able to speak though he feels he is speaking much slower than his baseline. He states he Has had some intermittent numbness and tingling in the right arm in recent weeks but never to the extent where he could not move his arm. He states no facial droop, no alteration in mental status though feels somewhat foggy, and he has a sense of generalized weakness including both lower legs. He has not had a headache, denies any chest pain or difficulty breathing, no abdominal pain nausea vomiting or diarrhea. He is unsure of his medication but does not believe that he is on any anticoagulation. Review of Systems Constitutional: reports: Fatigue Eyes: reports: Reviewed and negative Ears: reports: Reviewed and negative Nose: reports: Reviewed and negative Throat: reports: Reviewed and negative Cardiac: reports: Reviewed and negative Respiratory: reports: Reviewed and negative GI: reports: Reviewed and negative : reports: Reviewed and negative Skin: reports: Reviewed and negative Neurologic: reports: Focal weakness, Numbness, Difficulty speaking. 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 : Benign prostate hypertrophy, Nocturia, Frequency HEENT: Chronic vision loss, Chronic sinusitis Psych: Depression, Anxiety Musculoskeletal: Osteoarthritis, Fatigue Derm: None - Past Surgical History Past Surgical History: Yes General: Colonoscopy Ortho: Other HEENT: Tonsil/Adenoidectomy - Present Medications Home Medications: Ambulatory Orders Medication Instructions Recorded Confirmed Amitriptyline HCl 100 mg PO QPM 12/12/17 06/21/20 - Allergies Allergies/Adverse Reactions: Allergies Allergy/AdvReac Type Severity Reaction Status Date / Time No Known Drug Allergies Allergy Verified 06/10/22 10:21 - Social History Does the pt smoke?: No Smoking Status: Never smoker Does the pt drink ETOH?: No Does the pt have substance abuse?: No - Immunizations Immunizations are current?: Yes Immunizations: TDAP current <10years - POLST Patient has POLST: No POLST Status: Full Code PD ED PE NORMAL - Vitals Vital signs reviewed: Yes - General General: Alert and oriented X 3, No acute distress, Well developed/nourished - HEENT HEENT: Atraumatic, PERRL, EOMI, Ears normal, Moist mucous membranes, Pharynx benign - Neck Neck: Supple, no meningeal sign, No adenopathy - Cardiac Cardiac: RRR, No murmur - Respiratory Respiratory: No respiratory distress, Clear bilaterally - Abdomen Abdomen: Normal bowel sounds, Soft, Non tender, Non distended - Derm Derm: Normal color, Warm and dry, No rash - Extremities Extremities: No deformity, No tenderness to palpate, Normal ROM s pain, No edema, No calf tenderness / cord - Neuro Neuro: Alert and oriented X 3 Eye Opening: Spontaneous Motor: Obeys Commands Verbal: Oriented GCS Score: 15 - Psych Psych: Normal mood, Normal affect PD ED PE EXPANDED - Neuro Neuro: Alert and Oriented X 3, Weakness, Other (Mild dysarthria, slowed speech. ) NIHSS - Time Time: 14:50 - Level of Consciousness Level of consciousness: (0) Alert, Keenly responsive LOC Questions: (0) Answers both Q's correct LOC Commands: (0) Performs both correctly - Gaze Best Gaze: (0) Normal - Visual Visual: (0) No loss - Facial Palsy Facial Palsy: (0) Normal, symmetrical movement - Motor Arms (both separate) Motor Arm (right): (0) No drift Motor Arm (left): (0) No drift - Motor Legs (both separate) Motor Leg (right): (0) No drift Motor Leg (left): (0) No drift - Limb Ataxia Limb Ataxia: (0) Absent - Sensory Sensory: (0) Normal - Best Language Best Language: (0) No aphasia - Dysarthria Dysarthria: (0) Normal - Extinction and Inattention (formally neg Extinction and inattention: (0) No abnormality - Total Score/Results Total Score/Result: 0 Results - Vitals Vitals: Vital Signs - 24 hr 07/25/23 14:24 Temperature 36.2 C L Heart Rate 99 Respiratory 18 Rate Blood Pressure 144/81 H O2 Saturation 100 Oxygen O2 Source Room air - EKG (time done) No standard instances EKG releavant findings:: EKG personally interpreted by author of this note. Relevant findings are: Rate: Rate (enter#) (93) Rhythm: NSR [place]: Normal Intervals: Normal [place] QRS: Normal Ischemia: Normal ST segments, Q waves - Labs Labs: Laboratory Tests 07/25/23 07/25/23 07/25/23 14:35 14:35 14:35 WBC 5.6 RBC 5.07 Hgb 14.0 Hct 44.3 MCV 87.4 MCH 27.6 MCHC 31.6 L RDW 12.9 Plt Count 253 MPV 9.2 Neut # (Auto) 2.6 Lymph # (Auto) 2.2 [place] # (Auto) 0.6 Eos # (Auto) 0.1 Baso # (Auto) 0.1 Absolute Nucleated RBC 0.00 Nucleated RBC % 0.0 PT 13.6 H INR 1.3 H Sodium 133 L Potassium 4.2 Chloride 98 L Carbon Dioxide 27 Anion Gap 8.0 BUN 12 Creatinine 1.6 H Estimated GFR (MDRD) 51 L Glucose 115 H Calcium 9.8 Total Bilirubin 0.7 AST 22 ALT 18 Alkaline Phosphatase 113 Troponin I High Sens 4.7 Total Protein 8.1 Albumin 4.4 Globulin 3.7 Albumin/Globulin Ratio 1.2 Lipase 25 Urine Color Urine Clarity Urine pH Ur Specific [place] Urine Protein Urine Glucose (UA) Urine Ketones Urine Occult Blood Urine Nitrite Urine Bilirubin Urine Urobilinogen Ur Leukocyte Esterase Ur Microscopic Review Urine Culture Comments Urine Opiates Screen Ur Buprenorphine Scrn Ur Oxycodone Screen Urine Methadone Screen Ur Barbiturates Screen Ur Tricyclics Screen Ur Phencyclidine Scrn Ur Amphetamine Screen U Methamphetamines Scrn U Benzodiazepines Scrn Urine Cocaine Screen U Cannabinoids Screen Ur Drug Screen Comment 07/25/23 14:51 WBC RBC Hgb Hct MCV MCH MCHC RDW Plt Count MPV Neut # (Auto) Lymph # (Auto) [place] # (Auto) Eos # (Auto) Baso # (Auto) Absolute Nucleated RBC Nucleated RBC % PT INR Sodium Potassium Chloride Carbon Dioxide Anion Gap BUN Creatinine Estimated GFR (MDRD) Glucose Calcium Total Bilirubin AST ALT Alkaline Phosphatase Troponin I High Sens Total Protein Albumin Globulin Albumin/Globulin Ratio Lipase Urine Color YELLOW Urine Clarity CLEAR Urine pH 7.0 Ur Specific [place] 1.010 Urine Protein NEGATIVE Urine Glucose (UA) NEGATIVE Urine Ketones NEGATIVE Urine Occult Blood NEGATIVE Urine Nitrite NEGATIVE Urine Bilirubin NEGATIVE Urine Urobilinogen 0.2 (NORMAL) Ur Leukocyte Esterase NEGATIVE Ur Microscopic Review NOT INDICATED Urine Culture Comments NOT INDICATED Urine Opiates Screen NEGATIVE Ur Buprenorphine Scrn NEGATIVE Ur Oxycodone Screen NEGATIVE Urine Methadone Screen NEGATIVE Ur Barbiturates Screen NEGATIVE Ur Tricyclics Screen POSITIVE H Ur Phencyclidine Scrn NEGATIVE Ur Amphetamine Screen NEGATIVE U Methamphetamines Scrn NEGATIVE U Benzodiazepines Scrn NEGATIVE Urine Cocaine Screen NEGATIVE U Cannabinoids Screen POSITIVE H Ur Drug Screen Comment CUTOFF CONC BELOW: - Rads (name of study) No standard instances Relevant Findings:: Final report received PD Medical Decision Making - ED course Complexity details: reviewed old records, reviewed results, considered differential, d/w patient, d/w assessment consultant ED course: This is a 73-year-old gentleman with history of hypertension, peripheral neuropathy, hepatitis, anxiety and depression who presented stating he was concerned that he was having a stroke due to right-sided arm weakness and difficulty speaking. Symptoms resolved nearly completely prior to arrival though the patient still still somewhat "foggy." Is well-appearing here on physical exam, initial NIH scale of 0, the patient was sent directly to CT CTA to rule out stroke or large vessel occlusion and the CTs were reassuring. Labs are fairly unremarkable, he does have a mild CKD which appears similar to prior, CBC, CMP, urinalysis otherwise unremarkable, INR is 1.3, urine drug screen positive for cannabinoids and tricyclics And patient does appear to be prescribed amitriptyline. The patient was evaluated by telestroke DR. Odell and recommended the patient be placed on a dual antiplatelet therapy, and complete the workup for TIA including echocardiogram and MRI. I have spoken with hospitalist service who is kindly agreed to admit this patient for additional stroke workup. Patient accepted by hospitalist Dr.Sameet Dong. Departure - Departure Disposition: ED Place in Observation Clinical Impression: TIA (transient ischemic attack) Forms: PCP List
[2023-07-25 14:48] LABS: BASOPHILS # (AUTO) 0.1 10^3/uL (0.0-0.1); BASOPHILS % (AUTO) 1.4 %; EOSINOPHILS # (AUTO) 0.1 10^3/uL (0.0-0.7); HCT - HEMATOCRIT 44.3 % (42.0-52.0); LYMPHOCYTES # (AUTO) 2.2 10^3/uL (1.5-3.5); LYMPHOCYTES % (AUTO) 38.7 %; MEAN CORPUSCULAR HEMOGLOBIN 27.6 pg (27.0-31.0); MEAN CORPUSCULAR HGB CONC 31.6 g/dL (32.0-36.0); MEAN CORPUSCULAR VOLUME 87.4 fL (80.0-94.0); MEAN PLATELET VOLUME 9.2 fL (7.4-11.4); MONOCYTES # (AUTO) 0.6 10^3/uL (0.0-1.0); MONOCYTES % (AUTO) 10.6 %; NEUTROPHILS # (AUTO) 2.6 10^3/uL (1.5-6.6); NEUTROPHILS % (AUTO) 47.1 %; PLT - PLATELET COUNT 253 10^3/uL (130-450); RED BLOOD COUNT 5.07 10^6/uL (4.70-6.10); RED CELL DISTRIBUTION WIDTH 12.9 % (12.0-15.0); WHITE BLOOD COUNT 5.6 x10^3/uL (4.8-10.8)
[2023-07-25 14:56] LABS: INR 1.3 (0.8-1.2); PT - PROTHROMBIN TIME 13.6 secs (9.9-12.6)
--- NOTE | 2023-07-25 15:02 | CT Report ---
PROCEDURE: Head W/O Stroke Protocol INDICATIONS: stroke sx TECHNIQUE: Noncontrast 4.5 mm thick angled axial sections acquired from the foramen magnum to the vertex, with c oronal reformats. For radiation dose reduction, the following was used: automated exposure control, adjustment of mA and/or kV according to patient size. COMPARISON: CT head 06/10/2022, CTA head and neck 07/25/2023. FINDINGS: Image quality: Excellent. The ventricular system and cortical sulci demonstrate atrophy, consistent for patient's stated age. There are areas of hypodensity in the periventricular and subcortical white matter. There is no acut e intra or extra-axial fluid collection. No acute hemorrhage, mass lesion or midline shift. Brainst em is unremarkable. Globes are symmetrical. Sinuses demonstrate complete opacification of the right maxillary sinus with prominent mucous retention cyst versus polyp in the right maxillary sinus. Scattered areas of mucosal thickening are present. Osseous structures are intact. IMPRESSION: 1. No acute intracranial process. 2. Moderate atrophy and chronic microvascular ischemic changes. The above findings were discussed with Dr. Orlando on 07/25/2023 at 2:58 PM This study fulfills neurological imaging criteria for inclusion or exclusion of acute stroke therapie s based on available published neurological imaging guidelines. Reviewed by: Jessica Smallwood MD on 07/25/2023 3:01 PM PDT Approved by: Jessica Smallwood MD on 07/25/2023 3:01 PM PDT Station ID: [id number]
--- NOTE | 2023-07-25 15:05 | CT Report ---
PROCEDURE: Angio Head/Neck INDICATIONS: stroke TECHNIQUE: After the administration of intravenous contrast, 1 mm thick sections acquired from the aortic arch t hrough the [place]. 3-dimensional klheyhv-kkilwzmld-ikwhbghcxq (MIP) and/or volume renderin g reformats were acquired of the central intracranial vasculature and neck separately. For radiation dose reduction, the following was used: automated exposure control, adjustment of mA and/or kV acco rding to patient size. CONTRAST: 80ml [id number] COMPARISON: CT head 07/25/2023, 06/10/2022 FINDINGS: Image quality: Diagnostic. HEAD CT: See separately dictated CT head report of 07/25/2023. HEAD CT ANGIOGRAPHY: Anterior circulation: Intracranial internal carotid arteries are normal in size and flow. The flow within the paired anterior cerebral arteries is normal and symmetric. The flow within the middle cer ebral arteries is normal and symmetric. The anterior communicating artery is seen. No aneurysms are seen. Posterior circulation: Visualized portions of the vertebral arteries demonstrate normal caliber, and join to form a normal appearing basilar artery. Flow within the posterior cerebral arteries is norm al and symmetric. No aneurysms are seen. NECK CT ANGIOGRAPHY: Carotid system: Bovine arch is present consistent with congenital variation. The origins of the commo n carotid arteries appear patent. The common carotid arteries demonstrate normal caliber and courses . The bifurcation regions are both widely patent. The internal carotid arteries demonstrate normal calibers and courses. Posterior circulation: Prominent left vertebral artery dominance. The origins of the vertebral arter ies both appear widely patent. The more superior extracranial portions of both vertebral arteries al so demonstrate normal courses and calibers. They join to form a normal appearing basilar artery. Soft tissues: Visualized neck soft tissues demonstrate no suspicious abnormalities. Bones: No suspicious bony lesions. Visualized cervical spine appears normally aligned. IMPRESSION: No areas of hemodynamically significant stenosis, vascular occlusion or aneurysmal dilation within th e anterior circulation. No areas of hemodynamically significant stenosis, vascular occlusion or aneurysmal dilation within th e posterior circulation. There are no areas of hemodynamically significant stenosis, vascular occlusion or aneurysmal dilation within the neck vasculature. The estimate of stenosis included in the report of the imaging study was calculated using the NASCET method Reviewed by: Jessica Smallwood MD on 07/25/2023 3:04 PM PDT Approved by: Jessica Smallwood MD on 07/25/2023 3:04 PM PDT Station ID: [id number]
[2023-07-25 15:11] LABS: ALBUMIN 4.4 g/dL (3.2-5.5); ALBUMIN/GLOBULIN RATIO 1.2 (1.0-2.2); BILIRUBIN,TOTAL 0.7 mg/dL (0.2-1.0); CALCIUM 9.8 mg/dL (8.5-10.3); CREATININE 1.6 mg/dL (0.6-1.3); POTASSIUM 4.2 mmol/L (3.5-4.5); TOTAL PROTEIN 8.1 g/dL (6.4-8.9)
[2023-07-25 15:12] LABS: TROPONIN I HIGH SENSITIVITY 4.7 ng/L (2.3-19.7)
[2023-07-25 15:15] LABS: BILIRUBIN,URINE NEGATIVE (NEGATIVE); GLUCOSE, URINE (UA) NEGATIVE (NEGATIVE); KETONES,URINE (UA) NEGATIVE (NEGATIVE); LEUKOCYTE ESTERASE, URINE NEGATIVE (NEGATIVE); NITRITE,URINE NEGATIVE (NEGATIVE); OCCULT BLOOD,URINE NEGATIVE (NEGATIVE); PROTEIN,URINE NEGATIVE (NEGATIVE); UROBILINOGEN,URINE 0.2 (NORMAL) E.U./dL (NORMAL)
[2023-07-25 15:22] LABS: CLARITY,URINE CLEAR (CLEAR)
[2023-07-25] MEDS: iohexoL-300 100 ML VIAL IVP ONE (15:24)
[2023-07-25 15:26] LABS: AMPHETAMINE SCREEN,URINE NEGATIVE (NEGATIVE); BARBITURATE SCREEN,UR NEGATIVE (NEGATIVE); BENZODIAZEPINES SCREEN, URINE NEGATIVE (NEGATIVE); BUPRENORPHINE SCREEN, URINE NEGATIVE (NEGATIVE); COCAINE SCREEN URINE NEGATIVE (NEGATIVE); METHADONE SCREEN, URINE NEGATIVE (NEGATIVE); METHAMPHETAMINES SCREEN, URINE NEGATIVE (NEGATIVE); OPIATE SCREEN, URINE NEGATIVE (NEGATIVE); OXYCODONE SCREEN, URINE NEGATIVE (NEGATIVE); THC CANNABINOID SCREEN, URINE POSITIVE (NEGATIVE); TRICYCLIC ANTIDEPRESSANT,URINE POSITIVE (NEGATIVE)
[2023-07-25] MEDS: ASPIRIN CHEW 81 MG TABLET PO STA (15:36)
[2023-07-25] MEDS: CLOPIDOGREL 75 MG TABLET PO STA (15:36)
[2023-07-25] MEDS: SODIUM CHLORIDE 0.9% 1,000 ML IV STA (15:37)
[2023-07-25] MEDS ORDERED: ACETAMINOPHEN 325 MG TABLET PO PRN (15:41)
[2023-07-25] MEDS ORDERED: SODIUM CHLORIDE FLUSH 0.9% 10 ML SYRINGE IVP PRN (15:41)
[2023-07-25] MEDS ORDERED: ONDANSETRON 4 MG/2 ML VIAL IVP PRN (15:41)
[2023-07-25] MEDS ORDERED: ONDANSETRON ODT 4 MG TABLET TL PRN (15:41)
--- NOTE | 2023-07-25 16:48 | PHARMACY PROGRESS NOTE ---
- Best Possible Medication History Admit Date and Time: 07/25/23 1601 Processed by: Pharmacy Medications reviewed in ED?: No Medication History completed: Yes Patient Interview: Completed (by pharmacy technicians Melvin and Moraima) Secondary Source(s): Physician records, Insurance records As the person ultimately responsible for medication therapy, providers are able to order a medication from an existing home medication list in [facility] via the "Reconcile Routine" prior to Confirmation of that medication by support dba. Such practice is discouraged except when the physician, in their clinical judgment, deems that a medical need exists for a medication without regard to previous use.
--- NOTE | 2023-07-25 17:05 | HISTORY & PHYSICAL EXAMINATION ---
Chief Complaint - Chief Complaint Chief Complaint: Right arm numbness History of Present Illness - Admitted From Admitted From:: Home - History Obtained From Records Reviewed: Yes History obtained from: Patient Exam Limitations: None - History of Present Illness HPI Comment/Other: Patient is a 73-year-old male with past medical history of hypertension, hyperlipidemia, GERD, prior tobacco abuse who presented to the ED due to complaints of right arm weakness and slurred speech which occurred earlier today and resolved prior to presentation to the ED. 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 He also noticed that he had some difficulty finding his words. He also endorsed some changes in his gait. Upon presentation to the ED, a CT/CTA of his head was done which was unremarkable. Teleneuro recommended admission. They did not recommend any tPA. History - Past Medical History Cardiovascular: reports: Hypertension, High cholesterol Respiratory: reports: None, Sleep apnea Neuro: reports: Peripheral neuropathy Endocrine/Autoimmune: reports: None GI: reports: GERD, Hepatitis PLUMBER HELPER: reports: None : reports: Benign prostate hypertrophy, Nocturia, Frequency HEENT: reports: Chronic vision loss, Chronic sinusitis Psych: reports: Depression, Anxiety Musculoskeletal: reports: Osteoarthritis, Fatigue Derm: reports: None MRSA Hx?: No - Past Surgical History General: reports: Colonoscopy Ortho: reports: Other HEENT: reports: Tonsil/Adenoidectomy - Family & Social History Family History: Mother: , Father: Social History Notes: The patient states that he lives alone, 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 He is still aquinted with his ex- and has 2 grown children, a son and a daughter. He admits to long-standing alcoholism, but states that he has been sober for the past 4 years. He admits to using tobacco from age [age], and denies illicit drug use. He wishes to be a FULL code. - Substance History Use: Uses substance without health or social issues: NONE - POLST Patient has POLST: No POLST Status: Full Code Meds/Allgy - Home Medications Home Medications: Ambulatory Orders Medication Instructions Recorded Confirmed Amitriptyline HCl 100 mg PO QPM 12/12/17 07/25/23 Gabapentin [Neurontin] 800 mg PO BID 07/25/23 07/25/23 Losartan [Cozaar] 50 mg PO DAILY 07/25/23 07/25/23 - Allergies Allergies/Adverse Reactions: Allergies Allergy/AdvReac Type Severity Reaction Status Date / Time No Known Drug Allergies Allergy Verified 06/10/22 10:21 Review of Systems - All Other Systems All Other Systems: reports: Reviewed and negative Exam - Vital Signs Reviewed Vital Signs: Yes Vital Signs: Vital Signs x48h Temp Pulse Resp BP Pulse Ox 07/25/23 16:06 74 14 131/84 H 100 07/25/23 16:00 95 16 131/85 H 98 07/25/23 15:32 85 17 133/90 H 98 07/25/23 14:24 36.2 C L 99 18 144/81 H 100 - Physical Exam General Appearance: positive: No acute distress, Alert Respiratory: positive: Chest non-tender, No respiratory distress, Breath sounds nml Cardiovascular: positive: Regular rate & rhythm, No murmur, No gallop Neurologic/Psychiatric: positive: Oriented x3, Mood/affect nml Conclusion/Plan - Problem List (1) TIA (transient ischemic attack) Conclusion/Plan: --Started on Aspirin and Plavix in the ED. --Tele neuro did not recommend tPA. --CTA did not show any LVO. --MRI head is pending. --PT/OT --He will need a TTE as an oupatient. --Symptoms have resolved. (2) GUNJAN (acute kidney injury) Conclusion/Plan: --Mild renal insufficiency or CKD. He has been given IV fluids. Recheck BMP in AM. (3) Hyperlipidemia Conclusion/Plan: --Started on Atorvastatin 40 mg. (4) Hypertension Conclusion/Plan: --Continue home losartan. - Lab Results Fish Bones: 07/25/23 14:35 07/25/23 14:35
--- NOTE | 2023-07-25 18:09 | MRI Report ---
PROCEDURE: MRI cervical spine without contrast INDICATIONS: Right arm numbness TECHNIQUE: Multiplanar multisequential MRI of the cervical spine was obtained without contrast. COMPARISON: None. FINDINGS: Alignment and Curvature: There is normal bony alignment. Bone Marrow: Marrow demonstrates normal overall signal. Spinal Cord: Visualized spinal cord has normal size and signal. No cerebellar tonsillar herniation. Paraspinal Soft Tissues: No paravertebral masses. Prevertebral soft tissues are normal in thickness . C2-C3: Disc spaces maintained. No central stenosis. Facet arthropathy and severe left foraminal sten osis. No right foraminal stenosis C3-C4: Normal in appearance. C4-C5: Posterior disc osteophyte complex combines with ligamentum flavum laxity result in mild to mo derate central stenosis. No cord deformation. Facet arthropathy associated with severe left and moder ate right foraminal stenosis. C5-C6: Normal in appearance. C6-C7: Normal in appearance. C7-T1: Normal in appearance. IMPRESSION: Multilevel degenerative disc disease and arthropathy results in varying degrees of central and forami nal stenosis including mild to moderate central stenosis C4-5 with severe left and moderate right for aminal stenosis Reviewed by: Enmanuel Winchester MD on 07/25/2023 5:07 PM GUILLE Approved by: Enmanuel Winchester MD on 07/25/2023 5:07 PM GUILLE Station ID: [id number]
--- NOTE | 2023-07-25 18:21 | MRI Report ---
PROCEDURE: MRI brain without contrast INDICATIONS: TIA TECHNIQUE: Multiplanar multisequential MR images of the brain were obtained without contrast COMPARISON: CT brain July 25, 2023 FINDINGS: CSF Spaces: Basal cisterns are patent. No extra-axial fluid collections. Ventricles are normal in size and shape. Brain: There is stippled restricted diffusion noted in the left parietal old watershed zone between the MCA and BIOINFORMATICS TECHNICIAN territories. No evidence of hemorrhage or mass effect. No intracranial masses or hemorrhage. Brainstem appears normal. Normal intravascular flow voids ar e present. Skull and face: Calvarium has normal marrow signal. Orbits appear normal. Sinuses: Bilateral maxillary mucosal thickening and intrasinus debris with obstruction of the left o stiomeatal unit and debris in the associated left frontal and ethmoid sinuses IMPRESSION: Stippled left parietal multifocal infarct noted at the watershed zone between the left MCA and BIOINFORMATICS TECHNICIAN te rritories. No significant edema or mass effect. Advanced left maxillary, ethmoid and frontal sinus disease may reflect mucosal or sinonasal polyp dis ease. Consider nonemergent follow-up CT sinus. Reviewed by: Enmanuel Winchester MD on 07/25/2023 5:19 PM GUILLE Approved by: Enmanuel Winchester MD on 07/25/2023 5:19 PM GUILLE Station ID: [id number]
[2023-07-25] MEDS: GABAPENTIN 400 MG CAPSULE PO SCH (21:01)
[2023-07-25] MEDS: AMITRIPTYLINE 25 MG TABLET PO SCH (21:01)
[2023-07-25] MEDS: SODIUM CHLORIDE FLUSH 0.9% 10 ML SYRINGE IVP SCH (21:02)
[2023-07-26 05:12] LABS: BASOPHILS # (AUTO) 0.1 10^3/uL (0.0-0.1); BASOPHILS % (AUTO) 1.4 %; EOSINOPHILS # (AUTO) 0.2 10^3/uL (0.0-0.7); EOSINOPHILS % (AUTO) 3.9 %; HCT - HEMATOCRIT 38.8 % (42.0-52.0); LYMPHOCYTES # (AUTO) 1.9 10^3/uL (1.5-3.5); LYMPHOCYTES % (AUTO) 33.6 %; MEAN CORPUSCULAR HGB CONC 30.9 g/dL (32.0-36.0); MEAN CORPUSCULAR VOLUME 87.2 fL (80.0-94.0); MONOCYTES # (AUTO) 0.8 10^3/uL (0.0-1.0); MONOCYTES % (AUTO) 14.2 %; NEUTROPHILS # (AUTO) 2.7 10^3/uL (1.5-6.6); NEUTROPHILS % (AUTO) 46.5 %; PLT - PLATELET COUNT 225 10^3/uL (130-450); RED BLOOD COUNT 4.45 10^6/uL (4.70-6.10); RED CELL DISTRIBUTION WIDTH 12.9 % (12.0-15.0); WHITE BLOOD COUNT 5.7 x10^3/uL (4.8-10.8)
[2023-07-26 05:34] LABS: CALCIUM 9.1 mg/dL (8.5-10.3); CREATININE 1.4 mg/dL (0.6-1.3); POTASSIUM 4.3 mmol/L (3.5-4.5)
[2023-07-26] MEDS: ENOXAPARIN 40 MG/0.4 ML SYRINGE SUBQ SCH (09:04)
[2023-07-26] MEDS: ATORVASTATIN 40 MG TABLET PO SCH (09:05)
[2023-07-26] MEDS: LOSARTAN 50 MG TABLET PO SCH (09:05)
[2023-07-26] MEDS: ASPIRIN EC 81 MG TABLET PO SCH (09:05)
[2023-07-26] MEDS: CLOPIDOGREL 75 MG TABLET PO SCH (09:05)
[2023-07-26 11:30] LABS: ESTIMATED AVERAGE GLUCOSE 128 mg/dL (70-100); HEMOGLOBIN A1c% 6.1 % (4.27-6.07)
--- NOTE | 2023-07-26 17:03 | PROVIDER PROGRESS NOTE ---
Assessment/Plan - Problem List (1) Stroke Assessment/Plan: --Multiple discussions were held with neurology at [facility]. Radiology also reviewed images of CTA. neurology recommended continue dual antiplatelet therapy with high intensity statin. There was some concern with CTA findings on the side of the left carotid. This was discussed with radiology. Will obtain an MRA to further visualize this area. TTE was also performed. Did have a discussion with cardiology at the [facility] in who stated they will read the TTE today. (2) GUNJAN (acute kidney injury) Assessment/Plan: --Renal function stable. (3) Hyperlipidemia Assessment/Plan: --Started on high intensity statin. (4) Hypertension Assessment/Plan: --Neurology at recommended permissive hypertension. His losartan has been held. - Current Meds Current Meds: Current Medications Generic Name Dose Route Start Last Admin Trade Name Freq PRN Reason Stop Dose Admin Amitriptyline HCl 100 mg 07/25/23 21:00 07/25/23 21:01 Amitriptyline 25 Mg Tablet PO 100 mg QPM JORGE Administration Aspirin 81 mg 07/26/23 09:00 07/26/23 09:05 Aspirin Ec 81 Mg Tablet PO 81 mg DAILY JORGE Administration Atorvastatin Calcium 40 mg 07/26/23 09:00 07/26/23 09:05 Atorvastatin 40 Mg Tablet PO 40 mg DAILY JORGE Administration Clopidogrel Bisulfate 75 mg 07/26/23 09:00 07/26/23 09:05 Clopidogrel 75 Mg Tablet PO 75 mg DAILY JORGE Administration Enoxaparin Sodium 40 mg 07/26/23 09:00 07/26/23 09:04 Enoxaparin 40 Mg/0.4 Ml Syringe SUBQ 40 mg DAILY JORGE Administration Gabapentin 800 mg 07/25/23 21:00 07/26/23 09:05 Gabapentin 400 Mg Capsule PO 800 mg BID JORGE Administration Sodium Chloride 10 ml 07/25/23 17:00 07/26/23 09:04 Sodium Chloride Flush 0.9% 10 Ml Syringe IVP 10 ml 0100,0900,1700 JORGE Administration - Lab Result Fish Bone Diagrams: 07/26/23 04:58 07/26/23 04:58 - Additional Planning My Orders: My Active Orders 07/25/23 Dinner Cardiac Diet [DIET] 07/25/23 17:00 Sodium Chloride Flush 0.9% [Normal Saline Flush 0.9%] 10 ml IVP 0100,0900,1700 07/25/23 21:00 Amitriptyline [Elavil] 100 mg PO QPM Gabapentin [Neurontin] 800 mg PO BID 07/26/23 09:00 Aspirin EC [Ecotrin] 81 mg PO DAILY Atorvastatin [Lipitor] 40 mg PO DAILY Clopidogrel [Plavix] 75 mg PO DAILY Enoxaparin [Lovenox] 40 mg SUBQ DAILY 07/26/23 15:54 RN MRI Screening [RC] .ONCE 07/27/23 05:00 BMP - BASIC METABOLIC PANEL [CHEM] DAILYLAB CBC [CBC - COMP BLD CT W/AUTO DIFF] [HEME] DAILYLAB 07/27/23 11:30 Angio Head WO [MRI] Routine Neck Angio W/WO [MRI] Routine 07/28/23 05:00 BMP - BASIC METABOLIC PANEL [CHEM] DAILYLAB CBC [CBC - COMP BLD CT W/AUTO DIFF] [HEME] DAILYLAB 07/29/23 05:00 BMP - BASIC METABOLIC PANEL [CHEM] DAILYLAB CBC [CBC - COMP BLD CT W/AUTO DIFF] [HEME] DAILYLAB 07/30/23 05:00 BMP - BASIC METABOLIC PANEL [CHEM] DAILYLAB CBC [CBC - COMP BLD CT W/AUTO DIFF] [HEME] DAILYLAB Subjective - Subjective Patient Reports: Feeling Better, Resting Comfortably, No Complaints (Patient symptoms have improved. He did have some weakness and dizziness while working with PT.) Objective Vital Signs: Vital Signs - 24 hr 07/25/23 07/25/23 07/25/23 17:30 21:00 23:28 Temperature 36.4 C L 36.1 C L 37 C Heart Rate [ 84 87 Brachial] Heart Rate [ Standing] Heart Rate [ Supine] Respiratory 18 18 Rate Blood Pressure 165/93 H 140/83 H [Left Brachial artery] Blood Pressure [Right Brachial artery] Blood Pressure [Standing] Blood Pressure [Supine] O2 Saturation 99 98 07/26/23 07/26/23 07/26/23 00:00 05:00 09:00 Temperature 36.7 C 36.6 C 36.5 C Heart Rate [ 80 74 76 Brachial] Heart Rate [ Standing] Heart Rate [ Supine] Respiratory 18 18 18 Rate Blood Pressure 117/72 121/67 [Left Brachial artery] Blood Pressure 118/64 [Right Brachial artery] Blood Pressure [Standing] Blood Pressure [Supine] O2 Saturation 100 99 97 07/26/23 07/26/23 07/26/23 10:56 11:00 13:00 Temperature 36.6 C Heart Rate [ 83 Brachial] Heart Rate [ 115 H 115 H Standing] Heart Rate [ 79 79 Supine] Respiratory 18 Rate Blood Pressure [Left Brachial artery] Blood Pressure 112/55 L [Right Brachial artery] Blood Pressure 97/76 97/76 [Standing] Blood Pressure 125/73 125/73 [Supine] O2 Saturation 94 07/26/23 16:04 Temperature 36.9 C Heart Rate [ 76 Brachial] Heart Rate [ Standing] Heart Rate [ Supine] Respiratory 17 Rate Blood Pressure [Left Brachial artery] Blood Pressure 129/68 [Right Brachial artery] Blood Pressure [Standing] Blood Pressure [Supine] O2 Saturation 99 Oxygen O2 Source Room air I&O (Last 24 Hrs): Intake and Output Totals x24h 07/24/23 07/25/23 07/26/23 23:59 23:59 23:59 Intake Total 906.667 Balance 906.667 General: Alert, Oriented x3, Cooperative Neuro: Alert, CN 2-12 Grossly Intact, Oriented Times 3 Cardiovascular: Regular rate, Normal S1, Normal S2, No murmurs Respiratory: Chest non-tender, No respiratory distress, Breath sounds nml Abdomen: Normal bowel sounds, Soft, No tenderness, No hepatospenomegaly, No masses - Results Results: Laboratory Results WBC 5.7 x10^3/uL (4.8-10.8) 07/26/23 04:58 RBC 4.45 10^6/uL (4.70-6.10) L 07/26/23 04:58 Hgb 12.0 g/dL (14.0-18.0) L 07/26/23 04:58 Hct 38.8 % (42.0-52.0) L 07/26/23 04:58 MCV 87.2 fL (80.0-94.0) 07/26/23 04:58 MCH 27.0 pg (27.0-31.0) 07/26/23 04:58 MCHC 30.9 g/dL (32.0-36.0) L 07/26/23 04:58 RDW 12.9 % (12.0-15.0) 07/26/23 04:58 Plt Count 225 10^3/uL (130-450) 07/26/23 04:58 MPV 9.0 fL (7.4-11.4) 07/26/23 04:58 Neut # (Auto) 2.7 10^3/uL (1.5-6.6) 07/26/23 04:58 Lymph # (Auto) 1.9 10^3/uL (1.5-3.5) 07/26/23 04:58 [place] # (Auto) 0.8 10^3/uL (0.0-1.0) 07/26/23 04:58 Eos # (Auto) 0.2 10^3/uL (0.0-0.7) 07/26/23 04:58 Baso # (Auto) 0.1 10^3/uL (0.0-0.1) 07/26/23 04:58 Absolute Nucleated RBC 0.00 x10^3/uL 07/26/23 04:58 Nucleated RBC % 0.0 /100WBC 07/26/23 04:58 PT 13.6 secs (9.9-12.6) H 07/25/23 14:35 INR 1.3 (0.8-1.2) H 07/25/23 14:35 Sodium 135 mmol/L (135-145) 07/26/23 04:58 Potassium 4.3 mmol/L (3.5-4.5) 07/26/23 04:58 Chloride 102 mmol/L (101-111) 07/26/23 04:58 Carbon Dioxide 27 mmol/L (21-32) 07/26/23 04:58 Anion Gap 6.0 (6-13) 07/26/23 04:58 BUN 14 mg/dL (6-20) 07/26/23 04:58 Creatinine 1.4 mg/dL (0.6-1.3) H 07/26/23 04:58 Estimated GFR (MDRD) 60 (>89) L 07/26/23 04:58 Glucose 137 mg/dL (74-104) H 07/26/23 04:58 Estimat Average Glucose 128 mg/dL (70-100) H 07/26/23 04:58 Hemoglobin A1c % 6.1 % (4.27-6.07) H 07/26/23 04:58 Calcium 9.1 mg/dL (8.5-10.3) 07/26/23 04:58 Total Bilirubin 0.7 mg/dL (0.2-1.0) 07/25/23 14:35 AST 22 IU/L (10-42) 07/25/23 14:35 ALT 18 IU/L (10-60) 07/25/23 14:35 Alkaline Phosphatase 113 IU/L (42-121) 07/25/23 14:35 Troponin I High Sens 4.7 ng/L (2.3-19.7) 07/25/23 14:35 Total Protein 8.1 g/dL (6.4-8.9) 07/25/23 14:35 Albumin 4.4 g/dL (3.2-5.5) 07/25/23 14:35 Globulin 3.7 g/dL (2.1-4.2) 07/25/23 14:35 Albumin/Globulin Ratio 1.2 (1.0-2.2) 07/25/23 14:35 Lipase 25 U/L (11-82) 07/25/23 14:35 Urine Color YELLOW 07/25/23 14:51 Urine Clarity CLEAR (CLEAR) 07/25/23 14:51 Urine pH 7.0 PH (5.0-7.5) 07/25/23 14:51 Ur Specific [place] 1.010 (1.002-1.030) 07/25/23 14:51 Urine Protein NEGATIVE mg/dL (NEGATIVE) 07/25/23 14:51 Urine Glucose (UA) NEGATIVE mg/dL (NEGATIVE) 07/25/23 14:51 Urine Ketones NEGATIVE mg/dL (NEGATIVE) 07/25/23 14:51 Urine Occult Blood NEGATIVE (NEGATIVE) 07/25/23 14:51 Urine Nitrite NEGATIVE (NEGATIVE) 07/25/23 14:51 Urine Bilirubin NEGATIVE (NEGATIVE) 07/25/23 14:51 Urine Urobilinogen 0.2 (NORMAL) E.U./dL (NORMAL) 07/25/23 14:51 Ur Leukocyte Esterase NEGATIVE (NEGATIVE) 07/25/23 14:51 Ur Microscopic Review NOT INDICATED 07/25/23 14:51 Urine Culture Comments NOT INDICATED 07/25/23 14:51 Urine Opiates Screen NEGATIVE (NEGATIVE) 07/25/23 14:51 Ur Buprenorphine Scrn NEGATIVE (NEGATIVE) 07/25/23 14:51 Ur Oxycodone Screen NEGATIVE (NEGATIVE) 07/25/23 14:51 Urine Methadone Screen NEGATIVE (NEGATIVE) 07/25/23 14:51 Ur Barbiturates Screen NEGATIVE (NEGATIVE) 07/25/23 14:51 Ur Tricyclics Screen POSITIVE (NEGATIVE) H 07/25/23 14:51 Ur Phencyclidine Scrn NEGATIVE (NEGATIVE) 07/25/23 14:51 Ur Amphetamine Screen NEGATIVE (NEGATIVE) 07/25/23 14:51 U Methamphetamines Scrn NEGATIVE (NEGATIVE) 07/25/23 14:51 U Benzodiazepines Scrn NEGATIVE (NEGATIVE) 07/25/23 14:51 Urine Cocaine Screen NEGATIVE (NEGATIVE) 07/25/23 14:51 U Cannabinoids Screen POSITIVE (NEGATIVE) H 07/25/23 14:51 Ur Drug Screen Comment CUTOFF CONC BELOW: 07/25/23 14:51 - Procedures Procedures: Procedures EXCISION OF TRANSVERSE COLON, ENDO (06/21/20) OP RED-INT FIX RAD/ULNA (02/02/14) TOE AMPUTATION (12/29/13)
[2023-07-27 04:45] LABS: BASOPHILS # (AUTO) 0.1 10^3/uL (0.0-0.1); BASOPHILS % (AUTO) 1.1 %; EOSINOPHILS # (AUTO) 0.2 10^3/uL (0.0-0.7); EOSINOPHILS % (AUTO) 3.3 %; HCT - HEMATOCRIT 37.3 % (42.0-52.0); HGB - HEMOGLOBIN 11.9 g/dL (14.0-18.0); LYMPHOCYTES # (AUTO) 1.9 10^3/uL (1.5-3.5); LYMPHOCYTES % (AUTO) 29.7 %; MEAN CORPUSCULAR HEMOGLOBIN 27.5 pg (27.0-31.0); MEAN CORPUSCULAR HGB CONC 31.9 g/dL (32.0-36.0); MEAN CORPUSCULAR VOLUME 86.3 fL (80.0-94.0); MEAN PLATELET VOLUME 9.4 fL (7.4-11.4); MONOCYTES # (AUTO) 0.7 10^3/uL (0.0-1.0); MONOCYTES % (AUTO) 10.9 %; NEUTROPHILS # (AUTO) 3.5 10^3/uL (1.5-6.6); NEUTROPHILS % (AUTO) 54.8 %; PLT - PLATELET COUNT 233 10^3/uL (130-450); RED BLOOD COUNT 4.32 10^6/uL (4.70-6.10); RED CELL DISTRIBUTION WIDTH 12.9 % (12.0-15.0); WHITE BLOOD COUNT 6.3 x10^3/uL (4.8-10.8)
[2023-07-27 05:08] LABS: CHOL/HDL RATIO 5.6 (<5.0); CHOLESTEROL 158 mg/dL; HDL CHOLESTEROL 28 mg/dL; LDL CHOLESTEROL,CALCULATED 103 mg/dL; LDL/HDL RATIO 3.7 (<3.6); TRIGLYCERIDES 135 mg/dL (48-352); VLDL CHOLESTEROL 27 mg/dL
[2023-07-27 05:09] LABS: CALCIUM 8.9 mg/dL (8.5-10.3); CREATININE 1.5 mg/dL (0.6-1.3); POTASSIUM 4.3 mmol/L (3.5-4.5)
[2023-07-27] MEDS: ATORVASTATIN 40 MG TABLET PO SCH (08:15)
[2023-07-27] MEDS: SODIUM CHLORIDE 0.9% 1,000 ML IV ONE (16:21)
[2023-07-27] MEDS ORDERED: GADOTERATE MEGLUMINE 10 MMOL/20 ML VIAL ONE (16:30)
[2023-07-27] MEDS: GADOTERATE MEGLUMINE 10 MMOL/20 ML VIAL IVP ONE (18:06)
--- NOTE | 2023-07-27 18:17 | MRI Report ---
PROCEDURE: Angio Head WO INDICATIONS: CVA TECHNIQUE: Noncontrast axial 3-D [id number] MR angiogram, with 3-dimensional maximum intensity projection (M IP) reformats of the internal carotid arteries and posterior circulation then performed. COMPARISON: MRI brain July 25, 2023, CT angiogram July 25, 2023 FINDINGS: Image quality: Diagnostic. Anterior circulation: Intracranial internal carotid arteries demonstrate normal size and intralumina l flow signal. The flow within the paired anterior cerebral arteries is normal and symmetric. The f low within the middle cerebral arteries is normal and symmetric. The anterior communicating artery i s seen. No stenoses, occlusions, or aneurysms. Posterior circulation: Near the takeoff of the left posterior cerebral artery there is a small 2 mm saccular aneurysm Visual ized portions of the vertebral arteries demonstrate normal caliber, and join to form a normal appeari ng basilar artery. The flow within the posterior cerebral arteries is otherwise normal and symmetric . 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 Reviewed by: Jj Ervin MD on 07/27/2023 5:15 PM GUILLE Approved by: Jj Ervin MD on 07/27/2023 5:15 PM GUILLE Station ID: [id number]
--- NOTE | 2023-07-27 18:20 | MRI Report ---
PROCEDURE: Angio Neck W/WO INDICATIONS: CVA CONTRAST: CLARISCAN 20.0 ML TECHNIQUE: Axial and sagittal balanced GE through the neck. Coronal dynamic MRA after the administration of con trast in the arterial and venous phases, with rotating 3-dimensional maximum intensity projection (NV P) reformats constructed from subtraction images. COMPARISON: None. FINDINGS: Image quality: Excellent. Carotid system: Great vessels demonstrate a bovine or normal anatomical variant anatomy as they nate e from the aortic arch. The origins of the common carotid arteries appear normal. The calibers and courses of the common carotid arteries are likewise normal. The carotid bifurcations appear normal b ilaterally. The internal carotid arteries are widely patent up to the [place]. Posterior circulation: The origins of the vertebral arteries are unremarkable. The more superior po rtions of the vertebral arteries demonstrate normal course. Diminutive right vertebral artery. Verte bral arteries join to form a normal appearing basilar artery. Miscellaneous: Subclavian arteries are patent throughout. Pre-contrast images through the neck demo nstrate no soft tissue abnormalities. IMPRESSION: No hemodynamically significant stenosis of the carotid or vertebral arteries. Reviewed by: Jj Ervin MD on 07/27/2023 5:19 PM GUILLE Approved by: Jj Ervin MD on 07/27/2023 5:19 PM GUILLE Station ID: [id number]
--- NOTE | 2023-07-27 20:49 | Discharge Plan ---
Discharge Plan Problem Reviewed?: Yes Disposition: Home, Self Care Condition: Good Prescriptions: Aspirin EC [Ecotrin] 81 mg PO DAILY #30 tab Atorvastatin [Lipitor] 80 mg PO DAILY #30 tab Clopidogrel [Plavix] 75 mg PO DAILY #30 tab Diet: Cardiac Activity Restrictions: Activity as Tolerated Additional Instructions or Follow Up instructions: Please follow up with your PCP. You will need a referral to Neurology and Neurosurgery. We have held your Losartan at the recommendation of Neurology at . Our goal is to keep your systolic blood pressure under 160. No Smoking: If you smoke, Please STOP! Call for help.
--- NOTE | 2023-07-27 20:50 | DISCHARGE SUMMARY ---
Discharge Summary Admit Date: 07/25/23 Discharge Date: 07/27/23 Discharging Provider: Azael Dong Code Status: Attempt Resuscitation Condition at Discharge: Good Discharge Disposition: 01 Home, Self Care - HPI History of Present Illness: Patient is a 73-year-old male with past medical history of hypertension, hyperlipidemia, GERD, prior tobacco abuse who presented to the ED due to complaints of right arm weakness and slurred speech which occurred earlier today and resolved prior to presentation to the ED. 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 He also noticed that he had some difficulty finding his words. He also endorsed some changes in his gait. Upon presentation to the ED, a CT/CTA of his head was done which was unremarkable. Teleneuro recommended admission. They did not recommend any tPA. - HOSPITAL COURSE Hospital Course: Patient is a 73-year-old male who presented to the ED after an episode of right arm weakness and speech difficulty while pumping gas. Upon presentation a CT/CTA was performed which was unremarkable. Telemetry neurology recommended a gainst tPA as his symptoms had improved however did recommend admission. 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 An attempt was made to reach out to neurology at several hospitals. Eventually [facility] neurology did review the MRI and recommended dual antiplatelet therapy. In discussion with the etiology of the stroke I spoke with to neurologist. The first neurologist recommended permissive hypertension as the patient suffered a stroke in a watershed area. However she did not know the exact etiology and recommended I discussed the case with neuro radiology at . I received a call back from a second radiologist who stated that he noticed areas of stenosis in the left carotid artery. He stated that this required further evaluation otherwise the patient should be on dual antiplatelet therapy with high and high intensity statin. I discussed this with radiology at [facility] who read the initial image who stated that this was likely artifact however to further evaluate an MRA of his head and neck could be performed. 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 This was discussed with neurosurgery at who recommended outpatient follow-up. Furthermore, a TTE was performed while inpatient and a stat read was requested from [facility] in [place] however this was not performed. Unfortunately as it fell on the weekend we could not get a cardiology read of his TTE. I instructed the patient to follow-up with his PCP and get a referral for neur ology as well as neurosurgery. He was placed on dual antiplatelet therapy as recommended by neurology. - ALLERGIES Allergies/Adverse Reactions: Allergies Allergy/AdvReac Type Severity Reaction Status Date / Time No Known Drug Allergies Allergy Verified 06/10/22 10:21 - MEDICATIONS Home Medications: Ambulatory Orders Medication Instructions Recorded Confirmed Amitriptyline HCl 100 mg PO QPM 12/12/17 07/25/23 Gabapentin [Neurontin] 800 mg PO BID 07/25/23 07/25/23 Aspirin EC [Ecotrin] 81 mg PO DAILY #30 tab 07/27/23 Atorvastatin [Lipitor] 80 mg PO DAILY #30 tab 07/27/23 Clopidogrel [Plavix] 75 mg PO DAILY #30 tab 07/27/23 - PHYSICAL EXAM AT DISCHARGE General Appearance: positive: No acute distress, Alert Respiratory: positive: Chest non-tender, No respiratory distress, Breath sounds nml Cardiovascular: positive: Regular rate & rhythm, No murmur, No gallop Extremities: positive: Non-tender, Full ROM, No pedal edema Neurologic/Psychiatric: positive: Oriented x3, CN's nml (2-12) - LABS Result Diagrams: 07/27/23 04:15 07/27/23 04:15 - FOLLOW UP Follow Up: Patient instructed to follow-up with his PCP and obtain a referral for neurology and neurosurgery. Please follow-up on his TTE. - TIME SPENT Time Spent in Discharge (Minutes): 35
[2023-07-27 21:02] VITALS: O2SAT 99
[2023-07-27 21:41] VITALS: BP 148/72
== END 2023-07-27 21:34 | disposition home or self-care (01) | DRG 66 ==
LOC: ED 14:22 → MS2 16:01 → OBSVTOIN 07-26 17:36
PROVIDERS: ADMIT Family Medicine; ATTEND Family Medicine
DX: G45.9 Transient cerebral ischemic attack, unspecified (principal); R20.0 Anesthesia of skin; R29.898 Other symptoms and signs involving the musculoskeletal system; I63.9 Cerebral infarction, unspecified; N17.9 Acute kidney failure, unspecified; G83.21 Monoplegia of upper limb affecting right dominant side; R47.81 Slurred speech; I10 Essential (primary) hypertension; E78.00 Pure hypercholesterolemia, unspecified; K21.9 Gastro-esophageal reflux disease without esophagitis; I65.22 Occlusion and stenosis of left carotid artery; R26.9 Unspecified abnormalities of gait and mobility; N40.1 Benign prostatic hyperplasia with lower urinary tract symptoms; R35.0 Frequency of micturition; R35.1 Nocturia; G47.30 Sleep apnea, unspecified; G62.9 Polyneuropathy, unspecified; F32.A Depression, unspecified; F41.9 Anxiety disorder, unspecified; M19.90 Unspecified osteoarthritis, unspecified site; R29.700 NIHSS score 0; Z79.899 Other long term (current) drug therapy; Z87.891 Personal history of nicotine dependence
CPT/HCPCS: 36415; 70450; 70496; 70498; 70544; 70549; 70551; 72141; 80048; 80053; 80061; 80306; 81003; 83036; 83690; 84484; 85025; 85610; 93005; 93307; 96372; 97162; 97166; 99285; A9270; A9575; G0378; J1650; Q9967; 81001; 83721; 87086